=== PATIENT | male | born 1960 | race Caucasian/White ===

== ENCOUNTER 2016-05-21 17:55 | Inpatient (IN) ==
[2016-05-21] MEDS ORDERED: Ipratropium/Albuterol Neb 3 ML IH ONE ×2 (19:11→19:18)
[2016-05-21] MEDS ORDERED: 0.9 % Sodium Chloride 1,000 ML IVC ONE (19:17)
[2016-05-21] MEDS ORDERED: methylPREDNISolone 125 MG/2 ML VIAL IV ONE (19:18)
--- NOTE | 2016-05-21 19:24 | Emergency Department Note ---
Disposition Clinical Impression: Community acquired pneumonia, Sepsis Disposition: Admitted As Inpatient Condition: Fair General Adult HPI - General Chief complaint: ED Fever Stated complaint: "Feel like crap" Time Seen by Provider: 05/21/16 18:58 Source: patient, family Limitations: no limitations Nursing Notes Reviewed: Yes Vital Signs Reviewed: Yes - History of Present Illness Pain Scale: 8 - Related Data Home Medications Medication Instructions Recorded Confirmed Aspirin 325 mg PO QAM 01/02/15 05/21/16 Metoprolol [Lopressor] 50 mg PO BID 01/02/15 05/21/16 Multivitamin/Iron/Folic Acid 1 each PO QAM 01/02/15 05/21/16 [Centrum Complete Multivit Tab] NIFEdipine [Nifedipine ER] 30 mg PO QAM 01/02/15 05/21/16 Simvastatin [Zocor] 40 mg PO QPM 01/02/15 05/21/16 Previous Rx's Medication Instructions Recorded Budesonide/Formoterol 80/4.5 1 puff IH BIDR #1 hfa.aer.ad 01/09/15 [Symbicort] Allergies Allergy/AdvReac Type Severity Reaction Status Date / Time egg Allergy Anaphylaxis Verified 05/21/16 18:12 Sulfa (Sulfonamide Allergy Anaphylaxis Verified 05/21/16 18:12 Antibiotics) Past Medical History - Past Medical History Medical history: Reports: atrial fibrillation, COPD, coronary artery disease, hyperlipidemia, hypertension, myocardial infarction Surgical history: Reports: coronary bypass (CABG), other (AAA repair) Psychiatric history: Reports: no psych history - Social History Smoking Status: Current every day smoker Smokeless Tobacco Status: No Alcohol use: Reports: none Drug use: Reports: none Physical Exam - General Limitations: no limitations General appearance: alert, in no apparent distress Course Vital Signs Temperature 99.3 F 05/21/16 18:08 Pulse Rate 98 05/21/16 18:08 Respiratory Rate 18 05/21/16 18:08 Blood Pressure 148/75 05/21/16 18:08 O2 Sat by Pulse Oximetry 93 L 05/21/16 18:08 Temperature 99.3 F 05/21/16 18:08 Pulse Rate 97 05/21/16 20:40 Respiratory Rate 18 05/21/16 20:40 Blood Pressure 120/60 05/21/16 20:40 O2 Sat by Pulse Oximetry 94 L 05/21/16 20:40 Oxygen Delivery Oxygen Delivery Room Air Medical Decision Making - MDM Narrative Medical decision making narrative: I examined this patient and my medical decision-making was reviewed with the BOAT AND PLANT UTILITY SUPERVISOR/PA/Advanced Practice Nurse/Resident Physician. I agree with the documented findings, disposition and treatment plan as described except to the extent set forth below. Patient presented today with cough fever and not feeling well. He said he aches all over. Had a history of pneumonia in the past. Getting a workup on him at this time. Chest x-ray suspicious for a pneumonia. 23,000 white count. Order cultures and antibiotics and he will need admission. He is getting a breathing treatment here. Then we will reassess. Chest X-Ray 05/21/16 19:11 IMPRESSION: Cardiomegaly with findings of mild congestive heart failure. Superimposed multifocal atypical infection is conceivable if the patient has fever or leukocytosis. D/ / Juan Francisco Beckham MD / Juan Francisco Beckham MD Interpreting Provider: Juan Francisco Beckham MD 2006 hrs.: Patient has pneumonia with leukocytosis and COPD and accompaniment of hospitals, blood cultures start him on IV antibiotics. He is in agreement to this plan. - Lab Data Result diagrams: 05/21/16 19:41 05/21/16 19:41 Lab Results 05/21/16 05/21/16 05/21/16 Range/Units 19:41 19:41 19:41 WBC 23.6 H (4.3-11.1) K/mcL RBC 4.59 (4.19-5.50) M/mcL Hgb 15.9 (12.9-16.9) g/dL Hct 45.7 (37.5-50.1) % MCV 99.6 (83.0-100.0) fL MCH 34.6 H (28.0-33.3) pg MCHC 34.8 (31.6-35.5) g/dL RDW 14.7 H (11.5-14.5) % Plt Count 201 (140-400) K/mcL MPV 10.7 (9.4-12.4) fL Immature Gran % 0.5 (0-4) % Seg Neutrophils % 75.8 % Lymphocytes % 14.9 % Monocytes % 7.6 % Eosinophils % 0.9 % Basophils % 0.3 % Neutrophils # 17.9 H (1.6-8.9) K/mcL Lymphocytes # 3.5 (0.6-4.6) K/mcL Monocytes # 1.8 H (0.0-1.3) K/mcL Eosinophils # 0.2 (0.0-0.6) K/mcL Basophils # 0.1 (0.0-0.2) K/mcL Immature Plt Fraction 8.3 H (1.1-6.1) % Sodium 137 (136-145) mEq/L Potassium 3.5 (3.5-4.5) mEq/L Chloride 104 (98-109) mEq/L Carbon Dioxide 22 (19-29) mEq/L BUN 12 (8-26) mg/dL Creatinine 0.90 (0.72-1.25) mg/dL Est GFR ( Amer) > 60 (> 60) Est GFR (Non-Af Amer) > 60 (> 60) BUN/Creatinine Ratio 13 (6-26) Glucose 110 H (70-99) mg/dL POC Glucose (58-89) Calculated Osmolality 284 (280-300) Lactic Acid 0.8 (0.5-2.2) mmol/L Calcium 9.6 (8.6-10.8) mg/dL 05/21/16 Range/Units 19:46 WBC (4.3-11.1) K/mcL RBC (4.19-5.50) M/mcL Hgb (12.9-16.9) g/dL Hct (37.5-50.1) % MCV (83.0-100.0) fL MCH (28.0-33.3) pg MCHC (31.6-35.5) g/dL RDW (11.5-14.5) % Plt Count (140-400) K/mcL MPV (9.4-12.4) fL Immature Gran % (0-4) % Seg Neutrophils % % Lymphocytes % % Monocytes % % Eosinophils % % Basophils % % Neutrophils # (1.6-8.9) K/mcL Lymphocytes # (0.6-4.6) K/mcL Monocytes # (0.0-1.3) K/mcL Eosinophils # (0.0-0.6) K/mcL Basophils # (0.0-0.2) K/mcL Immature Plt Fraction (1.1-6.1) % Sodium (136-145) mEq/L Potassium (3.5-4.5) mEq/L Chloride (98-109) mEq/L Carbon Dioxide (19-29) mEq/L BUN (8-26) mg/dL Creatinine (0.72-1.25) mg/dL Est GFR ( Amer) (> 60) Est GFR (Non-Af Amer) (> 60) BUN/Creatinine Ratio (6-26) Glucose (70-99) mg/dL POC Glucose 105 H (58-89) Calculated Osmolality (280-300) Lactic Acid (0.5-2.2) mmol/L Calcium (8.6-10.8) mg/dL
--- NOTE | 2016-05-21 19:30 | Emergency Department Note ---
Disposition Clinical Impression: Community acquired pneumonia Sepsis Qualifiers: Sepsis type: sepsis due to unspecified organism Qualified Code(s): A41.9 - Sepsis, unspecified organism Disposition: Admitted As Inpatient Condition: Fair Referrals: NO,PCP [Primary Care Provider] - Forms: ED Satisfaction Letter Time of Disposition: 20:28 General Adult HPI - General Chief complaint: ED Fever Stated complaint: "Feel like crap" Time Seen by Provider: 05/21/16 18:58 Source: patient, family Limitations: no limitations Nursing Notes Reviewed: Yes Vital Signs Reviewed: Yes - History of Present Illness HPI Narrative: 56-year-old male presents to the emergency department for evaluation of cough, congestion, myalgias, fever and chills. Patient reports history of COPD, tobacco abuse, coronary artery disease, hypertension and hyperlipidemia. Patient states he had a recent bout of pneumonia a few years ago which he had to be hospitalized. Patient states that he was admitted to the ICU for 4 days and they did a bronchoscopy and washout. Patient has continued to smoke since his hospitalization. Patient states he spent the night in his laundry room floor because he was having rigors so badly. Patient states that he was coughing up until he got sick yesterday and now he's stopped coughing. Patient denies any nausea or vomiting. He denies any abdominal pain. Exam is remarkable for a middle-aged male resting in bed in no acute distress. He is awake, alert and oriented. Heart regular rate and rhythm. His lungs are diminished bilaterally with wheezing and rhonchi noted throughout. His abdomen is soft and nontender. Labs, x-ray and medications ordered. Pt Subjective Complaint: Cough, congestion, fever and chills Onset (ago): day(s) (2) Location: chest Radiation: non-radiation Pain Severity: moderate Pain Scale: 8 Quality: aching Consistency: intermittent Improves with: nothing Worsens with: nothing Associated symptoms: Reports: cough, fever/chills, malaise, shortness of breath - Related Data Home Medications Medication Instructions Recorded Confirmed Aspirin 325 mg PO QAM 01/02/15 05/21/16 Metoprolol [Lopressor] 50 mg PO BID 01/02/15 05/21/16 Multivitamin/Iron/Folic Acid 1 each PO QAM 01/02/15 05/21/16 [Centrum Complete Multivit Tab] NIFEdipine [Nifedipine ER] 30 mg PO QAM 01/02/15 05/21/16 Simvastatin [Zocor] 40 mg PO QPM 01/02/15 05/21/16 Previous Rx's Medication Instructions Recorded Budesonide/Formoterol 80/4.5 1 puff IH BIDR #1 hfa.aer.ad 01/09/15 [Symbicort] Allergies Allergy/AdvReac Type Severity Reaction Status Date / Time egg Allergy Anaphylaxis Verified 05/21/16 18:12 Sulfa (Sulfonamide Allergy Anaphylaxis Verified 05/21/16 18:12 Antibiotics) All systems ED: reviewed and negative except as stated. Constitutional: Reports: fever, chills Cardiovascular: Denies: chest pain Respiratory: Reports: cough, dyspnea, wheezes Gastrointestinal: Denies: abdominal pain, nausea, vomiting, diarrhea Genitourinary: Denies: dysuria Musculoskeletal: Reports: neck pain, myalgia Integumentary: Denies: rash Neurological: Reports: headache Past Medical History - Past Medical History Medical history: Reports: atrial fibrillation, COPD, coronary artery disease, hyperlipidemia, hypertension, myocardial infarction Surgical history: Reports: coronary bypass (CABG), other (AAA repair) Psychiatric history: Reports: no psych history - Social History Smoking Status: Current every day smoker Smokeless Tobacco Status: No Alcohol use: Reports: none Drug use: Reports: none Physical Exam - General Limitations: no limitations General appearance: alert, in no apparent distress - Head Head exam: atraumatic, normocephalic, normal inspection - ENT ENT exam: normal oropharynx, mucous membranes moist - Chest Chest inspection: Present: normal inspection, symmetric chest wall rise - Respiratory Respiratory exam: Present: wheezes, other (Bilateral expiratory wheezing and rhonchi noted throughout lung tristan) - Cardiovascular Cardiovascular exam: Present: regular rate, normal rhythm, normal heart sounds - Abdominal Exam Abdominal exam: Present: soft, Non-Tender. Absent: tenderness, distention, guarding, rebound, rigidity - Neurological Exam Neurological exam: Present: alert, CN II-XII intact - Skin Skin exam: Present: warm, dry, intact, normal color Course - Reevaluation(s) Reevaluation #1: Chest x-ray shows signs of multifocal pneumonia. White blood cell count 23,000. Heart rate elevated at 102 bpm. Patient meets sepsis criteria. IV fluids, antibiotics given. Discussed case with hospitalist service. Will admit for further evaluation and treatment. Time: 20:28 Vital Signs Temperature 99.3 F 05/21/16 18:08 Pulse Rate 98 05/21/16 18:08 Respiratory Rate 18 05/21/16 18:08 Blood Pressure 148/75 05/21/16 18:08 O2 Sat by Pulse Oximetry 93 L 05/21/16 18:08 Temperature 99.3 F 05/21/16 18:08 Pulse Rate 98 05/21/16 20:02 Respiratory Rate 18 05/21/16 20:02 Blood Pressure 120/60 05/21/16 20:02 O2 Sat by Pulse Oximetry 94 L 05/21/16 20:02 Oxygen Delivery Oxygen Delivery Room Air Medical Decision Making - Medical Records Medical records reviewed: Yes I reviewed the patient's medical records. - Lab Data Lab results reviewed: Yes I reviewed the patient's lab results. Result diagrams: 05/21/16 19:41 05/21/16 19:41 Lab Results 05/21/16 05/21/16 05/21/16 Range/Units 19:41 19:41 19:41 WBC 23.6 H (4.3-11.1) K/mcL RBC 4.59 (4.19-5.50) M/mcL Hgb 15.9 (12.9-16.9) g/dL Hct 45.7 (37.5-50.1) % MCV 99.6 (83.0-100.0) fL MCH 34.6 H (28.0-33.3) pg MCHC 34.8 (31.6-35.5) g/dL RDW 14.7 H (11.5-14.5) % Plt Count 201 (140-400) K/mcL MPV 10.7 (9.4-12.4) fL Immature Gran % 0.5 (0-4) % Seg Neutrophils % 75.8 % Lymphocytes % 14.9 % Monocytes % 7.6 % Eosinophils % 0.9 % Basophils % 0.3 % Neutrophils # 17.9 H (1.6-8.9) K/mcL Lymphocytes # 3.5 (0.6-4.6) K/mcL Monocytes # 1.8 H (0.0-1.3) K/mcL Eosinophils # 0.2 (0.0-0.6) K/mcL Basophils # 0.1 (0.0-0.2) K/mcL Immature Plt Fraction 8.3 H (1.1-6.1) % Sodium 137 (136-145) mEq/L Potassium 3.5 (3.5-4.5) mEq/L Chloride 104 (98-109) mEq/L Carbon Dioxide 22 (19-29) mEq/L BUN 12 (8-26) mg/dL Creatinine 0.90 (0.72-1.25) mg/dL Est GFR ( Amer) > 60 (> 60) Est GFR (Non-Af Amer) > 60 (> 60) BUN/Creatinine Ratio 13 (6-26) Glucose 110 H (70-99) mg/dL POC Glucose (58-89) Calculated Osmolality 284 (280-300) Lactic Acid 0.8 (0.5-2.2) mmol/L Calcium 9.6 (8.6-10.8) mg/dL 05/21/16 Range/Units 19:46 WBC (4.3-11.1) K/mcL RBC (4.19-5.50) M/mcL Hgb (12.9-16.9) g/dL Hct (37.5-50.1) % MCV (83.0-100.0) fL MCH (28.0-33.3) pg MCHC (31.6-35.5) g/dL RDW (11.5-14.5) % Plt Count (140-400) K/mcL MPV (9.4-12.4) fL Immature Gran % (0-4) % Seg Neutrophils % % Lymphocytes % % Monocytes % % Eosinophils % % Basophils % % Neutrophils # (1.6-8.9) K/mcL Lymphocytes # (0.6-4.6) K/mcL Monocytes # (0.0-1.3) K/mcL Eosinophils # (0.0-0.6) K/mcL Basophils # (0.0-0.2) K/mcL Immature Plt Fraction (1.1-6.1) % Sodium (136-145) mEq/L Potassium (3.5-4.5) mEq/L Chloride (98-109) mEq/L Carbon Dioxide (19-29) mEq/L BUN (8-26) mg/dL Creatinine (0.72-1.25) mg/dL Est GFR ( Amer) (> 60) Est GFR (Non-Af Amer) (> 60) BUN/Creatinine Ratio (6-26) Glucose (70-99) mg/dL POC Glucose 105 H (58-89) Calculated Osmolality (280-300) Lactic Acid (0.5-2.2) mmol/L Calcium (8.6-10.8) mg/dL - Radiology Data Radiology results reviewed: Yes I reviewed the patient's radiology results. - EKG Data EKG #1 EKG attestation: Yes I reviewed and interpreted this EKG. EKG shows normal: sinus rhythm Rate: normal Rhythm: NSR [place]/QRS: normal Interpretation: no acute changes
[2016-05-21 19:50] LABS: Basophils # 0.1 K/mcL (0.0-0.2); Basophils % 0.3 %; Eosinophils # 0.2 K/mcL (0.0-0.6); Eosinophils % 0.9 %; Hematocrit 45.7 % (37.5-50.1); Hemoglobin 15.9 g/dL (12.9-16.9); Immature Granulocytes % 0.5 % (0-4); Immature Platelets 8.3 % (1.1-6.1); Lymphocytes # 3.5 K/mcL (0.6-4.6); Lymphocytes % 14.9 %; Mean Corpuscular HGB Conc 34.8 g/dL (31.6-35.5); Mean Corpuscular Hemoglobin 34.6 pg (28.0-33.3); Mean Corpuscular Volume 99.6 fL (83.0-100.0); Mean Platelet Volume 10.7 fL (9.4-12.4); Monocytes # 1.8 K/mcL (0.0-1.3); Monocytes % 7.6 %; Neutrophils # 17.9 K/mcL (1.6-8.9); Platelet Count 201 K/mcL (140-400); Red Blood Count 4.59 M/mcL (4.19-5.50); Red Cell Distribution Width 14.7 % (11.5-14.5); Segmented Neutrophils % 75.8 %
[2016-05-21] MEDS ORDERED: Levofloxacin 750 MG/150 ML 750 MG/150 ML BAG IVPB ONE (19:53)
[2016-05-21 20:01] LABS: BUN/Creatinine Ratio 13 (6-26); Blood Urea Nitrogen 12 mg/dL (8-26); Calcium 9.6 mg/dL (8.6-10.8); Carbon Dioxide 22 mEq/L (19-29); Chloride 104 mEq/L (98-109); Glucose 110 mg/dL (70-99); Osmolality,Calculated 284 (280-300); Potassium 3.5 mEq/L (3.5-4.5); Sodium 137 mEq/L (136-145); eGFR For African Americans > 60 (> 60); eGFR For Non-African Americans > 60 (> 60)
[2016-05-21] MEDS ORDERED: Acetaminophen 325 MG TABLET PO PRN (23:09)
[2016-05-21] MEDS ORDERED: Naloxone 0.4 MG/ML INJ IVP PRN (23:09)
[2016-05-21] MEDS ORDERED: *HR* Morphine 2 MG/ML SYRINGE IVP PRN (23:09)
--- NOTE | 2016-05-21 23:19 | Internal Med History&Physical ---
Date of Encounter: 05/21/16 Time of Encounter: 22:40 Internal Medicine - H&P: HPI Chief complaint: Weakness, malaise, cough, 2-3 days. Admitted From: Emergency Dept Plans for Post Hospital Care: Home History of present illness: Mr. Waldrop is a 56 year old male with medical history significant for COPD (with continuing tobacco abuse), CAD, PVD presents to the ED WITH 56-year-old male presents to the emergency department cough, congestion, myalgias, fever and chills OF 2-3 DAYS DURATION. .He feels he has a pneumonia. His cough was initially productive, but it appears to be drying. He lives alone at home, hos sons provide support, He is not up-to-date with influenza and pneumococcal vaccination. no sick contacts, no recent travel. He was treated for fungal pneumonia about 1 year ago. At that time he had bronchosopy with ilea lavage. He continues to cough, but now infrequent and less proceed. He is FULL CODE as per discussion. hE NOMINATES HIS DAUGHTER HIS nok/poa. Medical history: Reports: atrial fibrillation, COPD, coronary artery disease, hyperlipidemia, hypertension, myocardial infarction Surgical history: Reports: coronary bypass (CABG), other (AAA repair) Psychiatric history: Reports: no psych history Smoking Status: Current every day smoker Smokeless Tobacco Status: No Alcohol use: Reports: none Drug use: Reports: none Family history: HTN, CAD, CVA, mother: dm2, cva, SISTERS/BROTHER: DM2 ROS: Please see HPI, postives and relevant negatives are detailed, system- symptom not mentioned is assumed negative unless otherwise stated. Vital Signs Temperature 99.3 F 05/21/16 18:08 Pulse Rate 98 05/21/16 18:08 Respiratory Rate 18 05/21/16 18:08 Blood Pressure 148/75 05/21/16 18:08 O2 Sat by Pulse Oximetry 93 L 05/21/16 18:08 Temperature 99.3 F 05/21/16 18:08 Pulse Rate 97 05/21/16 20:40 Respiratory Rate 18 05/21/16 20:40 Blood Pressure 120/60 05/21/16 20:40 O2 Sat by Pulse Oximetry 94 L 05/21/16 20:40 O/E: not in distress, ill loking HEENT: not pale, anicteric, afebrile, acyanotic, no JVD Chest: Babasilar crackles, scattered wheezing Heart/CVS: RRR, HS1/2, no murmur Abdomen: soft, non-tender, no masses. 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 Extremities: no normal pedal pulses, no calf tenderness. cxr: favors multifocal pneumonia on probable subtle baseline heart failure IMP Mutifocal pneumonia vs atypical pneumonia Continuing tobacco abuse Chronic morbidities HTN CAD HLD Hx of fungal pneumonia PLAN Admit Levaquin IV 750 MH qd Bronchodilators Oxygen supplemetation Continue other medications of chronic morbidities Heparin for DVT prophyaxis I discussed my findings and assessment with the patient, he verbalized understanding, he is agreeable to admisison. He is admitted for evaluation and treatment of multifocal pneumonia. Past Med Surg Social Fam HX - Past Medical History Medical history: atrial fibrillation, COPD, coronary artery disease, hyperlipidemia, hypertension, myocardial infarction Psychiatric history: no psych history - Past Surgical History Surgical History: coronary bypass (CABG), other - Social History Smoking Status: Current every day smoker Packs per day: 0.75 Smokeless Tobacco Status: No Alcohol use: none Drug use: none - Family History Father Adopted: [place]: [place] Family Member Ethnicity: Non- Living Status: Age at : 81 Cause of : KIDNEY FAILURE Hx Family Cardiac Disorders: Yes (NH) Hx Family Respiratory Disorders: No Hx Family Cancer: Yes (Skin CA) Hx Family GI Disorders: No Hx Family Endocrine Disorder: No Hx Family Neuromuscular Disorders: No Hx Family Neurologic Disorders: No Hx Family HEENT Disorders: No Hx Family Autoimmune Disorders: No Mother Hx Family Endocrine Disorder: Yes (DM) Brother Hx Family Endocrine Disorder: Yes (DM) Sister Hx Family Endocrine Disorder: Yes (DM) Internal Medicine - H&P: Meds Aspirin 325 mg PO QAM 01/02/15 [History] Metoprolol [Lopressor] 50 mg PO BID 01/02/15 [History] Multivitamin/Iron/Folic Acid [Centrum Complete Multivit Tab] 1 each PO QAM 01/02 [History] NIFEdipine [Nifedipine ER] 30 mg PO QAM 01/02/15 [History] Simvastatin [Zocor] 40 mg PO QPM 01/02/15 [History] Budesonide/Formoterol 80/4.5 [Symbicort] 1 puff IH BIDR #1 hfa.aer.ad 01/09/15 [Rx] Allergies egg Allergy (Verified 05/21/16 18:12) Anaphylaxis Sulfa (Sulfonamide Antibiotics) Allergy (Verified 05/21/16 18:12) Anaphylaxis All Systems PM: A 10-system review of systems was performed and is negative for pertinent findings except as documented above in the HPI. - Constitutional Vitals: Temp Pulse Resp BP Pulse Ox 98.1 F 88 18 118/70 93 L 05/21/16 21:58 05/21/16 21:58 05/21/16 21:58 05/21/16 21:58 05/21/16 21:58 Internal Med - H&P Results - Labs CBC & Chem 7: 05/21/16 19:41 05/21/16 19:41
[2016-05-21] MEDS: Ipratropium/Albuterol Neb 3 ML IH SCH (23:33)
[2016-05-22 01:16] LABS: Bilirubin,Urine Negative (Negative); Blood,Urine Small (Negative); Clarity,Urine Clear (Clear); Color,Urine Yellow (Yellow); Glucose,Urine (UA) Normal (Normal); Ketones,Urine 40 mg/dL (Negative); Leukocyte Esterase,Urine Negative (Negative); Nitrite,Urine Negative (Negative); Protein,Urine 30 mg/dL (Neg-Trace); Specific Gravity,Urine 1.025 (1.010-1.025); Urobilinogen,Urine Normal (Normal)
[2016-05-22 01:25] LABS: Mucus,Urine Few (Few); Squamous Epithelial Cell,Urine None Seen per lpf (None-Few); WBC,Urine 0-3 per hpf (0-3)
[2016-05-22 01:26] LABS: Bacteria,Urine None Seen per hpf (None-Few); Hyaline Casts,Urine None Seen per lpf (None-Few)
[2016-05-22] MEDS: Ipratropium/Albuterol Neb 3 ML IH SCH ×4 (04:11→23:40)
[2016-05-22] MEDS: Levofloxacin 750 MG/150 ML 750 MG/150 ML BAG IVPB SCH (09:45)
[2016-05-22] MEDS: Multivit/Ca/Min/Fe/FA 1 TAB TABLET PO SCH (09:46)
[2016-05-22] MEDS: NIFEdipine XL (24 HR) 30 MG TAB.ER.24 PO SCH (09:46)
[2016-05-22] MEDS: Aspirin 325 MG TABLET PO SCH (09:46)
[2016-05-22] MEDS: Nicotine 21 MG PATCH.TD24 TD SCH (09:47)
[2016-05-22] MEDS: Budesonide/Formoterol 80/4.5 MDI IH SCH ×2 (10:35→23:40)
--- NOTE | 2016-05-22 15:19 | Internal Med Progress Note ---
Date of Encounter: 05/22/16 Time of Encounter: 07:45 - Assessment and plan (1) Pneumonia due to aerobic bacteria Current Visit: Yes Status: Acute Assessment and plan: Pt with hx of fungal pneumonia last year. He is currently on IV abx. Strep, Legionella and influenza are all negative. Will get 2 view CXR to evaluate progression/resolution of infiltrates. (2) Acute respiratory failure with hypoxia Current Visit: Yes Status: Acute Assessment and plan: Pt is requiring oxygen supplementation at this time. Will wean as tolerated. (3) Coronary artery disease Current Visit: No Status: Chronic Assessment and plan: Chronic issue Qualifiers: Coronary Disease-Associated Artery/Lesion type: [place] artery [place] vs. transplanted heart: [place] heart Associated angina: without angina Qualified Code(s): I25.10 - Atherosclerotic heart disease of [place] coronary artery without angina pectoris (4) Hypertension Current Visit: Yes Status: Chronic Assessment and plan: Continue home metoprolol Qualifiers: Hypertension type: essential hypertension Qualified Code(s): I10 - Essential (primary) hypertension (5) Tobacco abuse Current Visit: Yes Status: Chronic Assessment and plan: Counselling on cessation. (6) Leukocytosis Current Visit: Yes Status: Acute Qualifiers: Leukocytosis type: other Qualified Code(s): D72.828 - Other elevated white blood cell count - Subjective Interval history: Mr. Waldrop is currently admitted for acute community acquired pneumonia - multifocal in nature. He also is hypoxic at this time. He is high risk due to the potential for worsening respiratory status and hx of complicated pneumonia - fungal. Mr. Waldrop feels a little better than last evening. He is tolerating IV abx. He has less cough. No fever. No CP. No GI symptoms. Appetite is good this AM. He has not gotten up today. - Constitutional Vitals: Temp Pulse Resp BP Pulse Ox 97.5 F L 95 15 152/82 92 L 05/22/16 11:10 05/22/16 11:10 05/22/16 11:10 05/22/16 11:10 05/22/16 11:10 General appearance: Present: A&O X 3, pleasant, answers questions appropriately - Head Head exam: Present: normocephalic - Eye Eye exam: Present: conjuntiva pink - ENT ENT exam: Present: mucous membranes moist - Respiratory Respiratory exam: Present: decreased breath sounds, rales Additional comments: Scattered rales bilaterally. - Cardiovascular Cardiovascular exam: Present: RRR. Absent: +S4, tachycardia - GI/Abdominal GI/Abdominal exam: Present: soft. Absent: tenderness - Extremities Exam Extremities exam: Present: warm. Absent: pedal edema, tenderness - Neurological Exam Neurological exam: Present: alert, oriented X3, no focal deficits - Psychiatric Psychiatric exam: Present: normal affect, normal mood - Skin Skin exam: Present: dry, normal color, warm. Absent: rash Internal Medicine: Result - Labs CBC & Chem 7: 05/21/16 19:41 05/21/16 19:41 Labs: Urine 05/22/16 Range/Units 00:48 Urine Color Yellow (Yellow) Urine Clarity Clear (Clear) Urine pH 7.0 (5.0-8.0) pH Units Ur Specific [place] 1.025 (1.010-1.025) Urine Protein 30 H (Neg-Trace) mg/dL Urine Glucose (UA) Normal (Normal) mg/dL Consult Discharge Plan - Plan Referrals: Jalen Fletcher DO [Primary Care Provider] -
[2016-05-23 04:38] LABS: Basophils % 0.2 %; Eosinophils % 0.2 %; Hematocrit 45.1 % (37.5-50.1); Hemoglobin 15.6 g/dL (12.9-16.9); Immature Granulocytes % 0.8 % (0-4); Lymphocytes # 3.1 K/mcL (0.6-4.6); Mean Corpuscular HGB Conc 34.6 g/dL (31.6-35.5); Mean Corpuscular Volume 101.1 fL (83.0-100.0); Mean Platelet Volume 11.2 fL (9.4-12.4); Monocytes # 1.6 K/mcL (0.0-1.3); Neutrophils # 15.5 K/mcL (1.6-8.9); Platelet Count 186 K/mcL (140-400); Red Blood Count 4.46 M/mcL (4.19-5.50); Red Cell Distribution Width 14.7 % (11.5-14.5); Segmented Neutrophils % 75.8 %
[2016-05-23] MEDS: Ipratropium/Albuterol Neb 3 ML IH SCH ×4 (04:45→22:54)
[2016-05-23] MEDS: Levofloxacin 750 MG/150 ML 750 MG/150 ML BAG IVPB SCH (08:33)
[2016-05-23] MEDS: Nicotine 21 MG PATCH.TD24 TD SCH (08:33)
[2016-05-23] MEDS: Multivit/Ca/Min/Fe/FA 1 TAB TABLET PO SCH (08:34)
[2016-05-23] MEDS: NIFEdipine XL (24 HR) 30 MG TAB.ER.24 PO SCH (08:34)
[2016-05-23] MEDS: Aspirin 325 MG TABLET PO SCH (08:34)
[2016-05-23] MEDS: Budesonide/Formoterol 80/4.5 MDI IH SCH ×2 (10:47→22:54)
--- NOTE | 2016-05-23 18:42 | Internal Med Progress Note ---
Date of Encounter: 05/23/16 Time of Encounter: 15:00 - Assessment and plan (1) Acute respiratory failure with hypoxia Current Visit: Yes Status: Acute Assessment and plan: Improving. Will wean oxygen as able. If not, will do oxygen qualification tomorrow. (2) Pneumonia due to aerobic bacteria Current Visit: Yes Status: Acute Assessment and plan: Repeat CXR today shows improvement of infiltrates. WBC remains quite elevated. Will continue abx today and recheck labs in AM. Hopefully will be improved and able for discharge tomorrow. (3) Leukocytosis Current Visit: Yes Status: Acute Assessment and plan: Remains quite elevated. No bands noted. Will recheck in AM. Qualifiers: Leukocytosis type: other Qualified Code(s): D72.828 - Other elevated white blood cell count (4) Coronary artery disease Current Visit: No Status: Chronic Assessment and plan: Chronic issue Qualifiers: Coronary Disease-Associated Artery/Lesion type: [place] artery [place] vs. transplanted heart: [place] heart Associated angina: without angina Qualified Code(s): I25.10 - Atherosclerotic heart disease of [place] coronary artery without angina pectoris (5) Hypertension Current Visit: Yes Status: Chronic Assessment and plan: Continue home metoprolol Qualifiers: Hypertension type: essential hypertension Qualified Code(s): I10 - Essential (primary) hypertension (6) Tobacco abuse Current Visit: Yes Status: Chronic Assessment and plan: Counselling on cessation. - Subjective Interval history: Mr. Waldrop is currently admitted for acute community acquired pneumonia - multifocal in nature. He remains moderate to high risk due to the potential for worsening respiratory status and hx of complicated pneumonia - fungal. He also has persistent leukocytosis. Mr. Waldrop feels well at this time. He has less cough. No fever. Less sputum. Breathing treatments and abx seem to be helping. WBC remains elevated. No diarrhea or new symptoms noted. - Constitutional Vitals: Temp Pulse Resp BP Pulse Ox 97.7 F 73 18 123/78 91 L 05/23/16 16:00 05/23/16 16:00 05/23/16 16:29 05/23/16 16:00 05/23/16 16:29 General appearance: Present: A&O X 3, pleasant, answers questions appropriately - Head Head exam: Present: normocephalic - Eye Eye exam: Present: conjuntiva pink - ENT ENT exam: Present: mucous membranes moist - Respiratory Respiratory exam: Present: decreased breath sounds, CTAB - Cardiovascular Cardiovascular exam: Present: RRR. Absent: systolic murmur, tachycardia - GI/Abdominal GI/Abdominal exam: Present: soft. Absent: tenderness - Extremities Exam Extremities exam: Present: warm. Absent: pedal edema - Neurological Exam Neurological exam: Present: alert, oriented X3, no focal deficits - Psychiatric Psychiatric exam: Present: normal affect, normal mood - Skin Skin exam: Present: dry, warm. Absent: rash Internal Medicine: Result - Labs CBC & Chem 7: 05/23/16 03:37 05/21/16 19:41 Labs: Short CBC 05/23/16 Range/Units 03:37 WBC 20.5 H (4.3-11.1) K/mcL Hgb 15.6 (12.9-16.9) g/dL Hct 45.1 (37.5-50.1) % Plt Count 186 (140-400) K/mcL Neutrophils # 15.5 H (1.6-8.9) K/mcL - Impressions Impressions Chest X-Ray 05/23/16 07:00 IMPRESSION: near complete resolution of lung infiltrates since 01/02/2015. There is residual infiltrate in the medial left lung base, linear, possibly representing atelectasis/scarring given the timeframe. D/ / 05/23/2016 10:05:42 Pema Mast MD / aram Interpreting Provider: Pema Mast MD Consult Discharge Plan - Plan Referrals: Jalen Fletcher DO [Primary Care Provider] -
--- NOTE | 2016-05-23 22:45 | Electrocardiograph Report ---
[facility] Test Date: 2016-05-21 Pat Name: Harsh Waldrop Department: 104 Room: 3B39 Gender: M Careers Adviser: LEXUS : 1960 Requested By: Too Alanis Order Number: [id number] Reading MD: Jamaal Olivares MD Measurements Intervals [place] Rate: 81 P: 91 [place]: 169 QRS: 74 QRSD: 120 T: 27 QT: 366 QTc: 404 Interpretive Statements SINUS RHYTHM LEFT ATRIAL ENLARGEMENT MODERATE INTRAVENTRICULAR CONDUCTION DELAY Electronically Signed On 05-23-16 22:44:03 EST by Jamaal Olivares MD
[2016-05-24 04:40] LABS: Basophils # 0.1 K/mcL (0.0-0.2); Basophils % 0.5 %; Eosinophils # 0.3 K/mcL (0.0-0.6); Eosinophils % 2.8 %; Hematocrit 46.6 % (37.5-50.1); Immature Granulocytes % 0.4 % (0-4); Lymphocytes # 4.1 K/mcL (0.6-4.6); Lymphocytes % 35.1 %; Mean Corpuscular HGB Conc 34.3 g/dL (31.6-35.5); Mean Corpuscular Hemoglobin 34.8 pg (28.0-33.3); Mean Corpuscular Volume 101.3 fL (83.0-100.0); Mean Platelet Volume 10.9 fL (9.4-12.4); Monocytes # 0.9 K/mcL (0.0-1.3); Monocytes % 7.9 %; Neutrophils # 6.3 K/mcL (1.6-8.9); Platelet Count 203 K/mcL (140-400); Red Cell Distribution Width 14.8 % (11.5-14.5); Segmented Neutrophils % 53.3 %
[2016-05-24 04:55] LABS: Alanine Aminotransferase 73 Units/L (0-55); Albumin 3.1 g/dL (3.5-5.0); Albumin/Globulin Ratio 0.7 (1.1-2.2); Alkaline Phosphatase 76 Units/L (38-126); Aspartate Amino Transferase 54 Units/L (5-34); BUN/Creatinine Ratio 21 (6-26); Bilirubin,Total 0.5 mg/dL (0.2-1.2); Blood Urea Nitrogen 19 mg/dL (8-26); Calcium 9.6 mg/dL (8.6-10.8); Carbon Dioxide 26 mEq/L (19-29); Chloride 103 mEq/L (98-109); Globulin 4.2 g/dL (2.4-3.5); Glucose 108 mg/dL (70-99); Osmolality,Calculated 295 (280-300); Potassium 4.2 mEq/L (3.5-4.5); Sodium 141 mEq/L (136-145); Total Protein 7.3 g/dL (6.0-8.3); eGFR For African Americans > 60 (> 60); eGFR For Non-African Americans > 60 (> 60)
[2016-05-24] MEDS: Ipratropium/Albuterol Neb 3 ML IH SCH (05:19)
[2016-05-24 06:46] VITALS: BP 126/81
[2016-05-24] MEDS: NIFEdipine XL (24 HR) 30 MG TAB.ER.24 PO SCH (08:48)
[2016-05-24] MEDS: Aspirin 325 MG TABLET PO SCH (08:48)
[2016-05-24] MEDS: Nicotine 21 MG PATCH.TD24 TD SCH (08:49)
[2016-05-24] MEDS: Multivit/Ca/Min/Fe/FA 1 TAB TABLET PO SCH (08:49)
[2016-05-24] MEDS ORDERED: levoFLOXacin 500 MG TABLET PO SCH (09:00)
--- NOTE | 2016-05-24 09:06 | Discharge Summary ---
Date of Encounter: 05/24/16 Time of Encounter: 07:40 - Discharge Diagnosis (1) Acute respiratory failure with hypoxia Priority: Primary Status: Acute (2) Pneumonia due to aerobic bacteria Priority: Primary Status: Acute (3) Leukocytosis Priority: Secondary Status: Resolved Qualifiers: Leukocytosis type: other Qualified Code(s): D72.828 - Other elevated white blood cell count (4) Coronary artery disease Priority: Secondary Status: Chronic Qualifiers: Coronary Disease-Associated Artery/Lesion type: [place] artery [place] vs. transplanted heart: [place] heart Associated angina: without angina Qualified Code(s): I25.10 - Atherosclerotic heart disease of [place] coronary artery without angina pectoris (5) Hypertension Priority: Secondary Status: Chronic Qualifiers: Hypertension type: essential hypertension Qualified Code(s): I10 - Essential (primary) hypertension (6) Tobacco abuse Priority: Secondary Status: Chronic - Discharge Medications Prescriptions: Levofloxacin [Levaquin] 750 mg PO DAILY #4 tablet Home Medications: Aspirin 325 mg PO QAM 01/02/15 [History] Metoprolol [Lopressor] 50 mg PO BID 01/02/15 [History] Multivitamin/Iron/Folic Acid [Centrum Complete Multivit Tab] 1 each PO QAM 01/02 [History] NIFEdipine [Nifedipine ER] 30 mg PO QAM 01/02/15 [History] Simvastatin [Zocor] 40 mg PO QPM 01/02/15 [History] Budesonide/Formoterol 80/4.5 [Symbicort] 1 puff IH BIDR #1 hfa.aer.ad 01/09/15 [Rx] Levofloxacin [Levaquin] 750 mg PO DAILY #4 tablet 05/24/16 [Rx] Allergies/Adverse Reactions: Allergies egg Allergy (Verified 05/21/16 18:12) Anaphylaxis Sulfa (Sulfonamide Antibiotics) Allergy (Verified 05/21/16 18:12) Anaphylaxis Date of admission: 05/21/16 23:09 Primary care physician: Jalen Fletcher Discharging clinician: César Blue Anticipated date of discharge: 05/24/16 - Patient Status Disposition: Home, Self-Care Condition: Good Functional capacity at discharge: independent ambulation Overall status at discharge: patient is progressing back to baseline - Discharge Instructions Follow Up With: Jalen Fletcher, [Primary Care Provider] - (The office has requested that you call to schedule an appointment when you get home. Please follow up within 5 -7 days from your discharge date. ) Additional Instructions: Follow with PCP in 1 week - Diet and Activity Activity: resume usual activities as tolerated Diet: advance to your usual diet Hospital course: Mr. Waldrop is a 56 year old male with hx of CAD and HTN presented to ED with cough and malaise. He has previous history of pneumonia about a year ago. He was found to have leukocytosis and abnl CXR and was admitted for further evaluation and treatment. Mr. Waldrop was admitted to [facility]. He was started on IV abx and kept on oxygen. He had some improvement by the next day but continued to have leukocytosis. He was kept inpatient and on oxygen and IV abx. He tolerated diet and had no new issues. On 05/24/16 he felt well. He was afebrile and improved WBC and good BP. At that time he was felt stable for discharge home. - Time Spent with Patient Total time spent providing and/or coordinating discharge services: 40min - Constitutional Vitals: Temp Pulse Resp BP Pulse Ox 97.6 F 74 18 126/81 96 05/24/16 06:45 05/24/16 06:45 05/24/16 06:45 05/24/16 06:45 05/24/16 06:45 General appearance: Present: A&O X 3, pleasant, answers questions appropriately - Head Head exam: Present: normocephalic - Eye Eye exam: Present: conjuntiva pink - ENT ENT exam: Present: mucous membranes moist - Respiratory Respiratory exam: Present: CTAB. Absent: rhonchi, wheezes - Cardiovascular Cardiovascular exam: Present: RRR. Absent: systolic murmur, tachycardia - GI/Abdominal GI/Abdominal exam: Present: rigid. Absent: tenderness - Extremities Exam Extremities exam: Present: warm. Absent: pedal edema - Neurological Exam Neurological exam: Present: alert, oriented X3, no focal deficits - Psychiatric Psychiatric exam: Present: normal affect, normal mood - Skin Skin exam: Present: dry, warm. Absent: rash
== END 2016-05-24 10:12 | disposition home or self-care (01) | DRG 871 ==
LOC: EMEROO 17:55 → 3BNU 17:55 → SUATTDRO 23:09
PROVIDERS: ADMIT Nurse Practitioner Acute Care; ATTEND Internal Medicine

== ENCOUNTER 2017-07-01 20:08 | Inpatient (IN) ==
[2017-07-01 21:20] LABS: Basophils % 0.4 %; Eosinophils % 0.3 %; Hematocrit 47.6 % (37.5-50.1); Hemoglobin 16.4 g/dL (12.9-16.9); Immature Granulocytes % 0.2 % (0-4); Lymphocytes % 11.3 %; Mean Corpuscular HGB Conc 34.5 g/dL (31.6-35.5); Mean Corpuscular Hemoglobin 34.5 pg (28.0-33.3); Mean Corpuscular Volume 100.2 fL (83.0-100.0); Mean Platelet Volume 11.3 fL (9.4-12.4); Monocytes # 1.1 K/mcL (0.0-1.3); Monocytes % 11.8 %; Neutrophils # 6.8 K/mcL (1.6-8.9); Platelet Count 158 K/mcL (140-400); Red Blood Count 4.75 M/mcL (4.19-5.50); Red Cell Distribution Width 14.6 % (11.5-14.5)
--- NOTE | 2017-07-01 21:25 | Emergency Department Note ---
Disposition Clinical Impression: Chest pain Qualifiers: Chest pain type: unspecified Qualified Code(s): R07.9 - Chest pain, unspecified Pneumonia Qualifiers: Pneumonia type: due to unspecified organism Laterality: unspecified laterality Lung location: unspecified part of lung Qualified Code(s): J18.9 - Pneumonia, unspecified organism Disposition: Admitted As Inpatient Condition: Good Time of Disposition: 22:36 General Adult HPI - General Chief complaint: ED Shortness of Breath/Dyspnea Stated complaint: froylan,congestion,fever, 20 teeth pulled today Time Seen by Provider: 07/01/17 20:15 Source: patient, family Limitations: no limitations Nursing Notes Reviewed: Yes Vital Signs Reviewed: Yes - History of Present Illness HPI Narrative: 57-year-old male with significant past medical history of COPD and multiple pneumonias including fungal types presenting to the emergency department with chief complaint of overall not feeling well, shortness of breath and chest pain. Patient states yesterday he was cutting wood in his yard and afterwards he felt slightly weak with arm pain radiating into his chest. He then spiked a fever. They are unsure TMAx because they do not have a thermometer. He just felt warm to touch. Patient does have significant cardiac history with a CABG but no follow-up after surgery. Patient states today he went to the oral surgeon and had multiple teeth removed. He was not placed on antibiotics. He then had a fever again this afternoon and his daughter and ex- convinced him to come to the emergency department. Patient does disclose dyspnea on exertion at this time and mouth pain but otherwise has no complaints at this time. Denies chest pain at this time. Pain Scale: 2 - Related Data Home Medications Medication Instructions Recorded Confirmed Aspirin 325 mg PO QAM 01/02/15 07/01/17 Metoprolol [Lopressor] 50 mg PO BID 01/02/15 07/01/17 Multivitamin/Iron/Folic Acid 1 each PO QAM 01/02/15 07/01/17 [Centrum Complete Multivit Tab] NIFEdipine [Nifedipine ER] 30 mg PO QAM 01/02/15 07/01/17 Simvastatin [Zocor] 40 mg PO QPM 01/02/15 07/01/17 Budesonide/Formoterol 80/4.5 1 puff IH BIDR PRN 07/01/17 07/01/17 [Symbicort] Ibuprofen [Motrin] 800 mg PO Q8HR PRN 07/01/17 07/01/17 Naproxen Sodium [Aleve] 220 - 440 mg PO Q12H PRN 07/01/17 07/01/17 Allergies Allergy/AdvReac Type Severity Reaction Status Date / Time egg Allergy Anaphylaxis Verified 12/22/16 14:04 Sulfa (Sulfonamide Allergy Anaphylaxis Verified 12/22/16 14:04 Antibiotics) All systems ED: reviewed and negative except as stated. Constitutional: Reports: fever ENT ED: Reports: dental pain Cardiovascular: Reports: chest pain, dyspnea on exertion Respiratory: Reports: dyspnea Past Medical History - Past Medical History Attestation: Yes The following information was validated with the patient. Medical history: Reports: atrial fibrillation, COPD, coronary artery disease, hyperlipidemia, hypertension, myocardial infarction Surgical history: Reports: coronary bypass (CABG), other Psychiatric history: Reports: no psych history - Social History Smoking Status: Current every day smoker Smokeless Tobacco Status: No Alcohol use: Reports: none Drug use: Reports: none Physical Exam - General Limitations: no limitations General appearance: alert, in no apparent distress - Head Head exam: atraumatic, normocephalic, normal inspection - Eye Eye exam: Present: normal appearance. Absent: scleral icterus, conjunctival injection - ENT ENT exam: other (Dried blood around and inside the mouth. No sign of obvious abscess or active bleeding) - Neck Neck exam: Present: normal inspection, full ROM. Absent: tenderness, meningismus - Chest Chest inspection: Present: normal inspection, symmetric chest wall rise. Absent : tenderness, rash - Respiratory Respiratory exam: Present: other (Decreased breath sounds throughout) - Cardiovascular Cardiovascular exam: Present: normal rhythm, tachycardia - Abdominal Exam Abdominal exam: Present: soft, Non-Tender. Absent: distention, guarding, rebound - Extremities Exam Extremities exam: Present: normal inspection, full ROM - Neurological Exam Neurological exam: Present: alert, oriented X3 - Psychiatric Psychiatric exam: Present: normal affect, normal mood - Skin Skin exam: Present: warm, dry Course Course Narrative: 57-year-old male with significant past medical history of CAD and COPD presenting with chest pain, dyspnea on exertion and fever. Patient had recent dental extraction. We will perform a sepsis workup along with dyspnea workup including CBC, BMP, troponin, blood cultures, chest x-ray, EKG. Patient is alert and oriented 3 in the room. He is tachycardic but all other vital signs within normal limits and stable. Disposition most likely will be admission due to patient's previous chest pain and strong history of CAD. Patient agrees to this plan. Disposition pending results - Reevaluation(s) Reevaluation #1: Patient's laboratory analysis and radiographs have resulted. Chest x-ray being read as pulmonary edema but the patient does not look fluid overloaded on exam. BNP was within normal limits. Patient presents more like a pneumonia. We will provide the patient with Rocephin and Levaquin and admit him for pneumonia and chest pain workup. Patient is alert and oriented 3 in the room with stable vital signs at this time. Patient agrees with this plan. I spoke with the hospitalist on-call Dr. Arrieta who agrees to accept the patient at this time. Vital Signs Temperature 99.7 F H 07/01/17 20:10 Pulse Rate 117 07/01/17 20:10 Respiratory Rate 20 07/01/17 20:10 Blood Pressure 117/77 07/01/17 20:10 O2 Sat by Pulse Oximetry 88 07/01/17 20:10 Temperature 99.7 F H 07/01/17 20:10 Pulse Rate 101 07/01/17 22:38 Respiratory Rate 22 07/01/17 22:38 Blood Pressure 106/68 07/01/17 22:38 O2 Sat by Pulse Oximetry 93 07/01/17 22:38 Oxygen Delivery Oxygen Delivery Nasal Cannula Medical Decision Making - Lab Data Result diagrams: 07/01/17 20:50 07/01/17 20:50 Lab Results 07/01/17 07/01/17 07/01/17 Range/Units 20:50 20:50 20:50 WBC 9.0 (4.3-11.1) K/mcL RBC 4.75 (4.19-5.50) M/mcL Hgb 16.4 (12.9-16.9) g/dL Hct 47.6 (37.5-50.1) % MCV 100.2 H (83.0-100.0) fL MCH 34.5 H (28.0-33.3) pg MCHC 34.5 (31.6-35.5) g/dL RDW 14.6 H (11.5-14.5) % Plt Count 158 (140-400) K/mcL MPV 11.3 (9.4-12.4) fL Immature Gran % 0.2 (0-4) % Seg Neutrophils % 76.0 % Lymphocytes % 11.3 % Monocytes % 11.8 % Eosinophils % 0.3 % Basophils % 0.4 % Neutrophils # 6.8 (1.6-8.9) K/mcL Lymphocytes # 1.0 (0.6-4.6) K/mcL Monocytes # 1.1 (0.0-1.3) K/mcL Eosinophils # 0.0 (0.0-0.6) K/mcL Basophils # 0.0 (0.0-0.2) K/mcL Sodium 135 L (136-145) mEq/L Potassium 3.7 (3.5-5.1) mEq/L Chloride 103 (98-107) mEq/L Carbon Dioxide 25 (23-29) mEq/L BUN 16 (6-20) mg/dL Creatinine 1.08 (0.70-1.30) mg/dL Est GFR ( Amer) > 60 (> 60) Est GFR (Non-Af Amer) > 60 (> 60) BUN/Creatinine Ratio 15 (6-26) Glucose 148 H (70-105) mg/dL Calculated Osmolality 284 (280-300) Lactic Acid (0.5-2.2) mmol/L Calcium 9.6 (8.6-10.3) mg/dL Troponin I < 0.03 (< 0.04) ng/mL B-Natriuretic Peptide 41 (Less than 100) pg/mL 07/01/17 Range/Units 20:55 WBC (4.3-11.1) K/mcL RBC (4.19-5.50) M/mcL Hgb (12.9-16.9) g/dL Hct (37.5-50.1) % MCV (83.0-100.0) fL MCH (28.0-33.3) pg MCHC (31.6-35.5) g/dL RDW (11.5-14.5) % Plt Count (140-400) K/mcL MPV (9.4-12.4) fL Immature Gran % (0-4) % Seg Neutrophils % % Lymphocytes % % Monocytes % % Eosinophils % % Basophils % % Neutrophils # (1.6-8.9) K/mcL Lymphocytes # (0.6-4.6) K/mcL Monocytes # (0.0-1.3) K/mcL Eosinophils # (0.0-0.6) K/mcL Basophils # (0.0-0.2) K/mcL Sodium (136-145) mEq/L Potassium (3.5-5.1) mEq/L Chloride (98-107) mEq/L Carbon Dioxide (23-29) mEq/L BUN (6-20) mg/dL Creatinine (0.70-1.30) mg/dL Est GFR ( Amer) (> 60) Est GFR (Non-Af Amer) (> 60) BUN/Creatinine Ratio (6-26) Glucose (70-105) mg/dL Calculated Osmolality (280-300) Lactic Acid 1.0 (0.5-2.2) mmol/L Calcium (8.6-10.3) mg/dL Troponin I (< 0.04) ng/mL B-Natriuretic Peptide (Less than 100) pg/mL - EKG Data EKG #1 EKG attestation: Yes I reviewed and interpreted this EKG. EKG results narrative: Sinus tachycardia. Left atrial enlargement. Right axis deviation. Right bundle branch block. 690 bpm. RI interval 154, QRS 150, QTc 416. ST depression in anterior leads noted. Compared to previous EKG completed on 05/21 new Right bundle branch block and ST depression in anterior leads Attestation Statement - Attestation Attestation: I examined this patient and my medical decision-making was reviewed with the Resident Physician. I agree with the documented findings, disposition and treatment plan as described except to the extent set forth below. Patient to the ED for any shortness of breath fever. He has not felt well since yesterday. He was doing some woodcutting before it started. Patient developed a fever last night. Today he went had multiple dental extractions performed. On arrival here patient was hypoxic. Diffuse wheezing. Afebrile at 99. He did just take ibuprofen. Plan. Septic workup does not show any obvious source. Chest x-rays read as possible pulmonary edema. He does not look her sounded fluid overloaded. He is treated for pneumonia.
[2017-07-01 21:34] LABS: BUN/Creatinine Ratio 15 (6-26); Blood Urea Nitrogen 16 mg/dL (6-20); Calcium 9.6 mg/dL (8.6-10.3); Carbon Dioxide 25 mEq/L (23-29); Chloride 103 mEq/L (98-107); Glucose 148 mg/dL (70-105); Osmolality,Calculated 284 (280-300); Potassium 3.7 mEq/L (3.5-5.1); Sodium 135 mEq/L (136-145); Troponin I < 0.03 ng/mL (< 0.04); eGFR For African Americans > 60 (> 60); eGFR For Non-African Americans > 60 (> 60)
[2017-07-01] MEDS ORDERED: predniSONE 20 MG TABLET PO ONE (21:35)
[2017-07-01] MEDS ORDERED: Ipratropium/Albuterol Neb 3 ML IH ONE (21:35)
[2017-07-01] MEDS ORDERED: Levofloxacin 750 MG/150 ML 750 MG/150 ML BAG IVPB ONE (22:14)
[2017-07-01] MEDS ORDERED: cefTRIAXone 2,000 MG in Water for inj. (sterile) 20 ML 20 ML IVPB ONE (22:14)
[2017-07-02] MEDS ORDERED: Acetaminophen 325 MG TABLET PO PRN (00:10)
[2017-07-02] MEDS ORDERED: Albuterol 2.5 MG/3 ML NEBULIZER IH PRN (00:10)
[2017-07-02] MEDS ORDERED: Naloxone 0.4 MG/ML INJ IVP PRN (00:10)
--- NOTE | 2017-07-02 00:28 | Internal Med History&Physical ---
Date of Encounter: 07/02/17 Time of Encounter: 00:05 Assessment and Plan (1) Influenza B Current visit: Yes Status: Acute 1. Will place on Tamiflu. 2. Start MIV, symptom relief. 3. Droplet precautions. (2) Lung nodule Current visit: Yes Status: Acute 1. Patient will need pulmonary follow up and repeat imaging as per radiology. 2. Smoking cessation well advised. (3) Pneumonia Current visit: Yes Status: Acute 1. Blood cultures ordered in ER. 2. Will place on Rocephin and Zithromax. 3. Oxygen as needed. 4. Bronchodilators PRN. Qualifiers: Pneumonia type: due to unspecified organism Laterality: right Lung location: lower lobe of lung Qualified Code(s): J18.1 - Lobar pneumonia, unspecified organism (4) Coronary artery disease Current visit: No Status: Chronic 1. Continue home meds as appropriate. 2. Monitor clinically. 3. No signs or symptoms of angina presently. Qualifiers: Coronary Disease-Associated Artery/Lesion type: [place] artery [place] vs. transplanted heart: [place] heart Associated angina: without angina Qualified Code(s): I25.10 - Atherosclerotic heart disease of [place] coronary artery without angina pectoris (5) DVT prophylaxis Current visit: Yes Status: Acute 1. Heparin SQ. Internal Medicine - H&P: HPI Chief complaint: cough, fevers, chills, body aches Admitted From: Emergency Dept Plans for Post Hospital Care: Home History of present illness: Mr. Waldrop is a 57 year old male with a 2 day history of abrupt onset of fevers, chills, body aches, cough, headache, and difficulty breathing. Symptoms worsened quickly over the last 10-12 hrs. He also had his teeth pulled earlier yesterday for dentures. Since then, he feels much worse. He therefore came in the ER where he was seen and evaluated and noted to be hypoxemic. Workup was performed in the ER, including chest x-ray suggestive of possible pulmonary edema. However, clinically he appeared to be euvolemic, and even dehydrated. Because of his hypoxemia and concern for pneumonia, he was admitted to hospitalist service. Influenza testing was requested and came back positive for flu B. He also was noted to be tachycardic with a new right bundle branch block. Given these findings, ER staff ordered CT angiogram of the chest to rule out pulmonary embolus. There is no PE, but there is mention of a nodule in the right middle lobe. I saw the patient in the ER and evaluated him there. I also discussed with the ER staff and reviewed images in the ER with ER attending physician. Patient confirms flulike symptoms for the last 24-48 hours. His cough has progressively worsened, his body aches and fatigue are severe, and he feels dehydrated. He denies any chest pain. His shortness of breath is secondary to his coughing and wheezing. He denies any hemoptysis. Appetite has been poor. Fluid intake is poor. He denies any vomiting or diarrhea. Past Med Surg Social Fam HX - Past Medical History Attestation: Yes The following information was validated with the patient. Source: patient, old records reviewed Medical history: atrial fibrillation, COPD, coronary artery disease, hyperlipidemia, hypertension, myocardial infarction Psychiatric history: no psych history - Past Surgical History Surgical History: coronary bypass (CABG), other - Social History Smoking Status: Current every day smoker Smokeless Tobacco Status: No Alcohol use: none Drug use: none Current living situation: Home, With Family Activity Level: Independent ambulation Recent Out of Country Travel Within the Last 8 Weeks: No - Family History Father Adopted: No Family Member Ethnicity: Non- Living Status: Hx Family Cardiac Disorders: Yes ([place]) Hx Family Respiratory Disorders: No Hx Family Cancer: Yes (Skin CA) Hx Family GI Disorders: No Hx Family Endocrine Disorder: No Hx Family Neuromuscular Disorders: No Hx Family Neurologic Disorders: No Hx Family HEENT Disorders: No Hx Family Autoimmune Disorders: No Mother Hx Family Endocrine Disorder: Yes (DM) Brother Hx Family Endocrine Disorder: Yes (DM) Sister Hx Family Endocrine Disorder: Yes (DM) Internal Medicine - H&P: Meds Aspirin 325 mg PO QAM 01/02/15 [History] Metoprolol [Lopressor] 50 mg PO BID 01/02/15 [History] Multivitamin/Iron/Folic Acid [Centrum Complete Multivit Tab] 1 each PO QAM 01/02 [History] NIFEdipine [Nifedipine ER] 30 mg PO QAM 01/02/15 [History] Simvastatin [Zocor] 40 mg PO QPM 01/02/15 [History] Budesonide/Formoterol 80/4.5 [Symbicort] 1 puff IH BIDR PRN 07/01/17 [History] Ibuprofen [Motrin] 800 mg PO Q8HR PRN 07/01/17 [History] Naproxen Sodium [Aleve] 220 - 440 mg PO Q12H PRN 07/01/17 [History] 3 Allergy/AdvReac Type Severity Reaction Status Date / Time egg Allergy Anaphylaxis Verified 12/22/16 14:04 Sulfa (Sulfonamide Allergy Anaphylaxis Verified 12/22/16 14:04 Antibiotics) - Constitutional Constitutional: chills, fatigue, fever(s), lethargy, weakness, no night sweats - EENT Eyes: no blurry vision, no change in vision Ears: no ear pain, no tinnitus Nose, mouth and throat: nasal congestion, sinus pressure, no neck pain, no nose pain, no odynophagia - Cardiovascular Cardiovascular ROS IM: dyspnea, no chest pain, no irregular heart rhythm, no lightheadedness, no orthopnea, no paroxysmal nocturnal dyspnea, no syncope - Respiratory Respiratory: cough, dyspnea, dyspnea on exertion, chest congestion, pain with cough, no hemoptysis, no excessive phlegm production, no change in phlegm color - Gastrointestinal Gastrointestinal: no abdominal pain, no diarrhea, no melena, no nausea, no vomiting - Genitourinary Genitourinary ROS male: no dysuria, no flank pain, no nocturia - Musculoskeletal Musculoskeletal ROS IM: muscle cramps, myalgias, no arthralgias, no back pain - Integumentary Integumentary IM: no rash, no jaundice - Neurological Neurological ROS: no dizziness, no focal weakness, no frequent falls, no headache(s) - Psychiatric Psychiatric: no anxiety, no depression - Endocrine Endocrine IM: cold intolerance, no polydipsia, no polyuria - Hematologic/Lymphatic Hematologic/Lymphatic: easy bruising, no lymphadenopathy - Allergic/Immunologic Allergic/Immunologic: no wheezing, no GI upset with certain foods - Constitutional Vitals: Temp Pulse Resp BP Pulse Ox 99.7 F H 101 22 106/68 93 07/01/17 20:10 07/01/17 22:38 07/01/17 22:38 07/01/17 22:38 07/01/17 22:38 General appearance: Present: cooperative, A&O X 3, pleasant Exam: ill-appearing but non-toxic - Head Head exam: Present: atraumatic, normal inspection - Eye Eye exam: Present: EOMI, normal appearance. Absent: periorbital tenderness, PERRL, scleral icterus - ENT ENT exam: Present: mucous membranes dry, normal external ear exam, normal oropharynx - Neck Neck exam general surgery: Present: full ROM, lymphadenopathy (mild tender anterior cervical lymphadenopathy), supple. Absent: tenderness, nuchal rigidity , thyromegaly - Respiratory Respiratory exam: Present: prolonged expiratory phase, rales (right base), respiratory distress (mild), wheezes. Absent: chest wall tenderness, decreased breath sounds, rhonchi, tachypnea - Cardiovascular Cardiovascular exam: Present: distant heart sounds, RRR, +S1, +S2, tachycardia. Absent: diastolic murmur, JVD, systolic murmur - GI/Abdominal GI/Abdominal exam: Present: soft. Absent: hepatomegaly, mass, splenomegaly, tenderness - Extremities Exam Extremities exam: Present: normal capillary refill, normal inspection. Absent: calf tenderness, joint swelling, pedal edema, tenderness, warm - Back Exam Back exam: Present: CVA tenderness (R). Absent: CVA tenderness (L), paraspinal tenderness - Neurological Exam Neurological exam: Present: alert, CN II-XII intact, oriented X3, no focal deficits, strengths equal and symetr throughout - Psychiatric Psychiatric exam: Present: normal affect, normal mood - Skin Skin exam: Present: dry, warm. Absent: rash Internal Med - H&P Results - Labs CBC & Chem 7: 07/01/17 20:50 07/01/17 20:50 - EKG Data -: EKG Interpreted by Myself - EKG Data Prior EKG available for review: yes EKG comments: 07/02/17 00:36 Sinus tachycardia with RBBB - Impressions ITS Impressions Chest CTA 07/01/17 22:49 IMPRESSION: 1. No evidence of pulmonary embolism 2. Pulmonary findings suggestive of chronic interstitial lung disease. Superimposed mild emphysema. 3. 0.7 cm pulmonary nodule in right middle lobe. 4. Findings suggestive of lipomatous hypertrophy of the interatrial septum. RECOMMENDATIONS: Fleischner Society guidelines for follow-up and management of incidentally detected pulmonary nodules: Single Solid Nodule: Nodule size equals 6-8 mm In a low-risk patient, CT at 6-12 months, then consider CT at 18-24 months. In a high-risk patient, CT at 6-12 months, then CT at 18-24 months. - Low risk patients include individuals with minimal or absent history of smoking and other known risk factors. - High risk patients include individuals with a history or smoking or known risk factors. Radiology 2017 http://pubs.[facility]na.org/doi/full/10.1148/radiol.[email or web address] D/ / Josue Dixon MD / Josue Dixon MD Interpreting Provider: Josue Dixon MD - Diagnostic Studies Chest x-ray Status: image reviewed by me (negative; disagree with pulmonary edema comments by readiology)
[2017-07-02] MEDS: 0.9 % Sodium Chloride w KCl 20 MEQ/1,000 ML MLS IVC SCH ×2 (01:10→16:47)
[2017-07-02] MEDS: Ipratropium/Albuterol Neb 3 ML IH SCH ×5 (03:45→15:50)
[2017-07-02] MEDS: *HR* Heparin 5,000 UNIT/ML VIAL SQ SCH ×2 (05:10→16:47)
[2017-07-02 05:14] LABS: Basophils % 0.2 %; Hematocrit 46.1 % (37.5-50.1); Hemoglobin 15.9 g/dL (12.9-16.9); Immature Granulocytes % 0.3 % (0-4); Lymphocytes # 0.7 K/mcL (0.6-4.6); Lymphocytes % 12.4 %; Mean Corpuscular HGB Conc 34.5 g/dL (31.6-35.5); Mean Corpuscular Volume 101.5 fL (83.0-100.0); Mean Platelet Volume 11.1 fL (9.4-12.4); Monocytes # 0.2 K/mcL (0.0-1.3); Monocytes % 2.9 %; Neutrophils # 4.9 K/mcL (1.6-8.9); Platelet Count 145 K/mcL (140-400); Red Blood Count 4.54 M/mcL (4.19-5.50); Red Cell Distribution Width 14.6 % (11.5-14.5); Segmented Neutrophils % 84.2 %
[2017-07-02 05:23] LABS: INR 1.4; Prothrombin Time 15.2 Seconds (9.4-12.1)
[2017-07-02 05:26] LABS: Activated Partial Thrombo Time 33.4 Seconds (26.0-36.0)
[2017-07-02 05:31] LABS: Alanine Aminotransferase 43 Units/L (7-52); Albumin 3.8 g/dL (3.5-5.7); Albumin/Globulin Ratio 1.2 (1.1-2.2); Alkaline Phosphatase 62 Units/L (34-104); Aspartate Amino Transferase 42 Units/L (13-39); BUN/Creatinine Ratio 17 (6-26); Bilirubin,Total 0.2 mg/dL (0.3-1.0); Blood Urea Nitrogen 16 mg/dL (6-20); Calcium 9.1 mg/dL (8.6-10.3); Carbon Dioxide 24 mEq/L (23-29); Chloride 104 mEq/L (98-107); Globulin 3.3 g/dL (2.4-3.5); Glucose 273 mg/dL (70-105); Magnesium 1.9 mg/dL (1.6-2.6); Osmolality,Calculated 289 (280-300); Potassium 4.2 mEq/L (3.5-5.1); Sodium 134 mEq/L (136-145); Total Protein 7.1 g/dL (6.4-8.9); eGFR For African Americans > 60 (> 60); eGFR For Non-African Americans > 60 (> 60)
[2017-07-02] MEDS ORDERED: Azithromycin 500 MG in D5% in Water 250 ML IVPB SCH (08:00)
[2017-07-02] MEDS: Multivit/Ca/Min/Fe/FA 1 TAB TABLET PO SCH (08:23)
[2017-07-02] MEDS: Aspirin 325 MG TABLET PO SCH (08:23)
[2017-07-02] MEDS ORDERED: cefTRIAXone 1,000 MG in Water for inj. (sterile) 20 ML 10 ML IVP SCH (09:00)
--- NOTE | 2017-07-02 10:02 | Event Note ---
Date of Encounter: 07/02/17 Time of Encounter: 09:56 This is a 57-year-old male with history of smoking and COPD presented with hypoxia, cough, and shortness of breath. He had a recent URI symptoms. Before admission he had a tooth extraction, which worsened his symptoms. On physical exam his vital signs were stable. Scattered wheezing noted bilaterally, fine crackles noted at the left lower lobe. The rest exam was unremarkable. Assessment/plan Atypical pneumonia/COPD exacerbation/flu - Chest x-ray possible atypical pneumonia, will switch antibiotics to Levaquin for better atypical organism coverage. - Continue home medication for COPD, hypoxia and shortness of breath have improved. - Continue Tamiflu - Sputum culture, repeat chest x-ray in the morning.
[2017-07-02] MEDS: Levofloxacin 750 MG/150 ML 750 MG/150 ML BAG IVPB SCH (13:10)
[2017-07-02] MEDS: Ibuprofen 800 MG TABLET PO PRN (15:32)
--- NOTE | 2017-07-02 17:32 | Event Note ---
Date of Encounter: 07/02/17 Time of Encounter: 17:32 pt reported having difficulty breathing and nurse reported pt having tachycardia with HR about 120. Exam the patient in the room. His vital signs showed no fever, HR 103, respiration 20, BP stable. fine crackles noted bilaterally. The rest of the exam was unremarkable. sob/tachycardia - Suspected Levaquin allergy, but Levaquin was given after the symptoms started. - Suspected side effect of albuterol, change DuoNeb to Atrovent PRN. - Suspected fungal infection, per patient he reported inhaled wood dust several the days ago, his symptoms started after that. Current treatment does not cover fungal infection including histoplasmosis. We will check sputum for fungal smear and a urine for histoplasmosis antigen. - Stat chest x-ray to rule out possible acute abnormalities. - tylenol for fever.
[2017-07-02] MEDS: Ipratropium Neb 0.5 MG NEBULIZER IH SCH ×2 (20:15→23:55)
[2017-07-02] MEDS: traMADol 50 MG TABLET PO PRN (23:13)
[2017-07-03] MEDS: Ipratropium Neb 0.5 MG NEBULIZER IH SCH ×6 (04:12→23:43)
[2017-07-03] MEDS: *HR* Heparin 5,000 UNIT/ML VIAL SQ SCH ×2 (05:22→17:16)
[2017-07-03] MEDS: Levofloxacin 750 MG/150 ML 750 MG/150 ML BAG IVPB SCH (08:05)
[2017-07-03] MEDS: Aspirin 325 MG TABLET PO SCH (08:06)
[2017-07-03] MEDS: Multivit/Ca/Min/Fe/FA 1 TAB TABLET PO SCH (08:06)
[2017-07-03] MEDS: Ibuprofen 800 MG TABLET PO PRN (08:17)
[2017-07-03 08:29] LABS: BUN/Creatinine Ratio 14 (6-26); Blood Urea Nitrogen 13 mg/dL (6-20); Calcium 8.6 mg/dL (8.6-10.3); Carbon Dioxide 24 mEq/L (23-29); Chloride 105 mEq/L (98-107); Glucose 129 mg/dL (70-105); Osmolality,Calculated 280 (280-300); Potassium 4.3 mEq/L (3.5-5.1); Sodium 134 mEq/L (136-145); eGFR For African Americans > 60 (> 60); eGFR For Non-African Americans > 60 (> 60)
[2017-07-03 08:35] LABS: Basophils % 0.2 %; Eosinophils % 0.2 %; Hematocrit 45.4 % (37.5-50.1); Hemoglobin 15.2 g/dL (12.9-16.9); Immature Granulocytes % 0.2 % (0-4); Lymphocytes # 1.7 K/mcL (0.6-4.6); Lymphocytes % 28.8 %; Mean Corpuscular HGB Conc 33.5 g/dL (31.6-35.5); Mean Corpuscular Hemoglobin 34.1 pg (28.0-33.3); Mean Corpuscular Volume 101.8 fL (83.0-100.0); Mean Platelet Volume 11.9 fL (9.4-12.4); Monocytes # 0.8 K/mcL (0.0-1.3); Neutrophils # 3.3 K/mcL (1.6-8.9); Platelet Count 144 K/mcL (140-400); Red Blood Count 4.46 M/mcL (4.19-5.50); Red Cell Distribution Width 14.6 % (11.5-14.5); Segmented Neutrophils % 57.6 %
--- NOTE | 2017-07-03 10:55 | Internal Med Progress Note ---
Date of Encounter: 07/03/17 Time of Encounter: 10:53 - Assessment and plan (1) Influenza B Current Visit: Yes Status: Acute Assessment and plan: Continue Tamiflu. Supportive hydration and supportive treatments. (2) Pneumonia Current Visit: Yes Status: Acute Assessment and plan: Blood cultures negative so far. Continue Rocephin and azithromycin. Oxygen when necessary and bronchodilators when necessary. Consider adding steroids. Continue to wean oxygen. Qualifiers: Pneumonia type: due to unspecified organism Laterality: right Lung location: lower lobe of lung Qualified Code(s): J18.1 - Lobar pneumonia, unspecified organism (3) Lung nodule Current Visit: Yes Status: Acute Assessment and plan: Patient will need a pulmonary follow-up and repeat imaging as an outpatient. Smoking cessation has been advised. (4) Tobacco abuse Current Visit: No Status: Chronic Assessment and plan: Smoking cessation advised. Patient would also benefit from outpatient pulmonary evaluation - Time Spent With Patient 25 - 35 minutes - Subjective Interval history: Patient continues to feel extreme weakness, malaise, body aches, chills since overnight. He also states that he recently had new dentures placed and he has occasional bleeding from his gums and severe pain when he tries to masticate - Constitutional Vitals: Temp Pulse Resp BP Pulse Ox 98.2 F 88 14 126/75 93 07/03/17 07:14 07/03/17 07:14 07/03/17 07:14 07/03/17 07:14 07/03/17 08:10 General appearance: Present: cooperative, A&O X 3, pleasant Exam: GENERAL: Alert, flushed, moderate distress, cooperative EYES: PERRLA, EOMI EARS: External ears normal, canals clear OROPHARYNX: New dentures Lips, mucosa, and tongue normal. NECK: No jugulovenous distention, No carotid bruits, Carotid pulse normal contour, Supple LUNGS: Scattered crackles heard bilaterally CARDIAC: Normal S1 and S2; no rubs, murmurs, or gallops ABDOMEN: Abdomen soft, non-tender, BS normal, No masses or organomegaly EXTREMITIES: Extremities normal, no deformities, edema, clubbing or skin discoloration. Good capillary refill., No ulcers Rest of the exam is non contributory Internal Medicine: Result - Labs CBC & Chem 7: 07/03/17 07:07 07/03/17 07:07 Labs: Short CBC 07/03/17 Range/Units 07:07 WBC 5.8 (4.3-11.1) K/mcL Hgb 15.2 (12.9-16.9) g/dL Hct 45.4 (37.5-50.1) % Plt Count 144 (140-400) K/mcL Neutrophils # 3.3 (1.6-8.9) K/mcL BMP 07/03/17 07:07 Sodium 134 L Potassium 4.3 Chloride 105 Carbon Dioxide 24 BUN 13 Creatinine 0.94 Glucose 129 H Calcium 8.6 - ABG Interpretation ABG results: PT/INR, D-dimer PT 15.2 Seconds (9.4-12.1) H 07/02/17 04:55 - Impressions Impressions Chest X-Ray 07/02/17 17:15 IMPRESSION: 1. Mild prominence of the interstitium, unchanged from prior exams and may be related to fibrosis seen on recent comparison CT. 2. Mild bibasilar opacities, most likely atelectasis. D/ / 07/02/2017 17:56:15 Lorenzo Broderick MD / [email or web address] Interpreting Provider: Lorenzo Broderick MD Consult Discharge Plan - Plan Referrals: Jalen Fletcher DO [Primary Care Provider] -
[2017-07-03] MEDS ORDERED: predniSONE 20 MG TABLET PO ONE (10:58)
[2017-07-03] MEDS: OXYCODONE Oral CONC 10 MG/0.5 ML ORAL.SYG SL PRN ×2 (11:09→21:37)
[2017-07-04] MEDS: Ipratropium Neb 0.5 MG NEBULIZER IH SCH ×6 (04:23→23:46)
[2017-07-04] MEDS: *HR* Heparin 5,000 UNIT/ML VIAL SQ SCH ×2 (05:17→17:52)
[2017-07-04] MEDS: Budesonide/Formoterol 80/4.5 MDI IH PRN ×2 (07:55→20:28)
[2017-07-04] MEDS: Levofloxacin 750 MG/150 ML 750 MG/150 ML BAG IVPB SCH (09:07)
[2017-07-04] MEDS: Aspirin 325 MG TABLET PO SCH (09:07)
[2017-07-04] MEDS: Multivit/Ca/Min/Fe/FA 1 TAB TABLET PO SCH (09:07)
--- NOTE | 2017-07-04 10:58 | Internal Med Progress Note ---
Date of Encounter: 07/04/17 Time of Encounter: 10:48 - Assessment and plan (1) Influenza B Current Visit: Yes Status: Acute Assessment and plan: Continue Tamiflu. Supportive hydration and supportive treatments. (2) Pneumonia Current Visit: Yes Status: Acute Assessment and plan: Blood cultures negative so far. Continue Levaquin. Continue nebs. Wean oxygen as tolerated. Follow up on sputum cultures. Has had history of fungal pneumonia. Fungal smear is negative. Qualifiers: Pneumonia type: due to unspecified organism Laterality: right Lung location: lower lobe of lung Qualified Code(s): J18.1 - Lobar pneumonia, unspecified organism (3) Acute exacerbation of chronic obstructive airways disease Current Visit: No Status: Acute Assessment and plan: The patient has significant wheezing on exam. We will add IV steroids today. Continue nebulizers. Wean oxygen as tolerated. (4) Lung nodule Current Visit: Yes Status: Acute Assessment and plan: Patient will need a pulmonary follow-up and repeat imaging as an outpatient. Smoking cessation has been advised. (5) Tobacco abuse Current Visit: No Status: Chronic Assessment and plan: Smoking cessation advised. Patient would also benefit from outpatient pulmonary evaluation (6) DVT prophylaxis Current Visit: Yes Status: Acute Assessment and plan: Heparin subcutaneous - Subjective Interval history: Patient seen and examined. Says he is feeling worse. Having night sweats. Feels warm. Having a dry cough. Remains on 2.5 L of nasal cannula oxygen. Says at home he is on oxygen when necessary however he really does not use it much. - Constitutional Vitals: Temp Pulse Resp BP Pulse Ox 98.2 F 82 18 133/79 93 07/04/17 06:49 07/04/17 06:49 07/04/17 07:58 07/04/17 06:49 07/04/17 07:58 General appearance: Present: cooperative, A&O X 3, pleasant Exam: GEN: NAD CVS: RRR. S1, S2, No m/r/g RESP: Diffuse expiratory wheezes anterior and posterior lung tristan. ABD: Soft, NT, ND, +BS EXT: No edema. 2+ DP. No rashes NEURO: Nonfocal Internal Medicine: Result - Labs CBC & Chem 7: 07/03/17 07:07 07/03/17 07:07 - ABG Interpretation ABG results: PT/INR, D-dimer PT 15.2 Seconds (9.4-12.1) H 07/02/17 04:55 Consult Discharge Plan - Plan Referrals: ColJalen fernando DO [Primary Care Provider] -
[2017-07-04] MEDS: methylPREDNISolone 125 MG/2 ML VIAL IVP SCH ×2 (15:06→23:11)
[2017-07-04] MEDS: traMADol 50 MG TABLET PO PRN (15:06)
--- NOTE | 2017-07-04 18:43 | Electrocardiograph Report ---
[place] [id number] Test Date: 2017-07-01 Pat Name: Harsh Waldrop Department: 104 Room: 3A46 Gender: M Slag Wheeler: BRETT : 1960 Requested By: Guerita Valiente Order Number: [id number] Reading MD: Chaitanya Lam MD Measurements Intervals [place] Rate: 109 P: 62 WV: 154 QRS: 108 QRSD: 150 T: -5 QT: 352 QTc: 416 Interpretive Statements SINUS TACHYCARDIA LEFT ATRIAL ENLARGEMENT MARKED RIGHT AXIS DEVIATION RIGHT BUNDLE BRANCH BLOCK Electronically Signed On 07-04-2017 18:42:03 EDT by Chaitanya Lam MD
[2017-07-04] MEDS: Ibuprofen 800 MG TABLET PO PRN (20:16)
[2017-07-05] MEDS: Ipratropium Neb 0.5 MG NEBULIZER IH SCH ×6 (04:22→23:11)
[2017-07-05] MEDS: *HR* Heparin 5,000 UNIT/ML VIAL SQ SCH ×2 (04:29→16:56)
[2017-07-05 09:32] LABS: Hematocrit 51.1 % (37.5-50.1); Immature Granulocytes % 0.5 % (0-4); Lymphocytes % 18.3 %; Mean Corpuscular HGB Conc 33.7 g/dL (31.6-35.5); Mean Corpuscular Hemoglobin 34.1 pg (28.0-33.3); Mean Corpuscular Volume 101.4 fL (83.0-100.0); Mean Platelet Volume 11.5 fL (9.4-12.4); Platelet Count 157 K/mcL (140-400); Red Blood Count 5.04 M/mcL (4.19-5.50); Red Cell Distribution Width 13.9 % (11.5-14.5); Segmented Neutrophils % 76.8 %
[2017-07-05 09:33] LABS: Basophils % 0.2 %; Lymphocytes # 1.1 K/mcL (0.6-4.6); Monocytes # 0.3 K/mcL (0.0-1.3); Monocytes % 4.2 %; Neutrophils # 4.5 K/mcL (1.6-8.9)
[2017-07-05] MEDS: methylPREDNISolone 125 MG/2 ML VIAL IVP SCH ×3 (09:34→23:11)
[2017-07-05] MEDS: Levofloxacin 750 MG/150 ML 750 MG/150 ML BAG IVPB SCH (09:35)
[2017-07-05] MEDS: Aspirin 325 MG TABLET PO SCH (09:36)
[2017-07-05] MEDS: Multivit/Ca/Min/Fe/FA 1 TAB TABLET PO SCH (09:36)
[2017-07-05 09:38] LABS: Hemoglobin 17.2 g/dL (12.9-16.9)
[2017-07-05 11:17] LABS: BUN/Creatinine Ratio 24 (6-26); Blood Urea Nitrogen 24 mg/dL (6-20); Calcium 9.6 mg/dL (8.6-10.3); Carbon Dioxide 27 mEq/L (23-29); Chloride 98 mEq/L (98-107); Glucose 186 mg/dL (70-105); Osmolality,Calculated 293 (280-300); Potassium 4.3 mEq/L (3.5-5.1); Sodium 137 mEq/L (136-145); eGFR For African Americans > 60 (> 60); eGFR For Non-African Americans > 60 (> 60)
[2017-07-05] MEDS: Budesonide/Formoterol 80/4.5 MDI IH PRN (11:44)
--- NOTE | 2017-07-05 18:48 | Internal Med Progress Note ---
Date of Encounter: 07/05/17 Time of Encounter: 11:00 - Assessment and plan (1) Acute respiratory failure with hypoxia Current Visit: No Status: Acute Assessment and plan: -Patient still requiring high amounts of oxygen supplementation secondary to influenza B and pneumonia -Management as below (2) Influenza B Current Visit: Yes Status: Acute Assessment and plan: Patient continues to require high amounts of supplemental oxygenation Will continue day 4/5 of Tamiflu (3) Pneumonia Current Visit: Yes Status: Acute Assessment and plan: -Patient continues to require a high amount of supplemental oxygenation -Continue IV Levaquin Qualifiers: Pneumonia type: due to unspecified organism Laterality: right Lung location: lower lobe of lung Qualified Code(s): J18.1 - Lobar pneumonia, unspecified organism (4) Acute exacerbation of chronic obstructive airways disease Current Visit: No Status: Acute Assessment and plan: Secondary to the above Solu-Medrol initiated; DuoNeb's (5) Lung nodule Current Visit: Yes Status: Acute Assessment and plan: Monitor as outpatient (6) Tobacco abuse Current Visit: No Status: Chronic Assessment and plan: Smoking cessation (7) DVT prophylaxis Current Visit: Yes Status: Acute Assessment and plan: Subcutaneous heparin - Subjective Interval history: Patient still requiring high amounts of oxygen supplementation on 4 L at 88% due to influenza B and pneumonia - Constitutional Vitals: Temp Pulse Resp BP Pulse Ox 97.5 F L 70 16 123/75 93 07/05/17 14:25 07/05/17 14:25 07/05/17 15:27 07/05/17 14:25 07/05/17 15:27 General appearance: Present: cooperative, A&O X 3, pleasant, no acute distress - Respiratory Respiratory exam: Present: wheezes (Bilateral expiratory wheezes). Absent: respiratory distress - Cardiovascular Cardiovascular exam: Present: RRR, +S1, +S2. Absent: diastolic murmur, gallop, rubs, systolic murmur Internal Medicine: Result - Labs CBC & Chem 7: 07/05/17 09:18 07/05/17 09:18 Labs: Short CBC 07/05/17 Range/Units 09:18 WBC 5.9 (4.3-11.1) K/mcL Hgb 17.2 H D (12.9-16.9) g/dL Hct 51.1 H (37.5-50.1) % Plt Count 157 (140-400) K/mcL Neutrophils # 4.5 (1.6-8.9) K/mcL BMP 07/05/17 09:18 Sodium 137 Potassium 4.3 Chloride 98 Carbon Dioxide 27 BUN 24 H Creatinine 1.00 Glucose 186 H Calcium 9.6 - ABG Interpretation ABG results: PT/INR, D-dimer PT 15.2 Seconds (9.4-12.1) H 07/02/17 04:55 Consult Discharge Plan - Plan Referrals: ColopyJalen DO [Primary Care Provider] -
[2017-07-05] MEDS: Ibuprofen 800 MG TABLET PO PRN (23:10)
[2017-07-06] MEDS: Ipratropium Neb 0.5 MG NEBULIZER IH SCH ×6 (03:28→23:50)
[2017-07-06] MEDS: *HR* Heparin 5,000 UNIT/ML VIAL SQ SCH ×2 (05:54→16:55)
[2017-07-06] MEDS: Budesonide/Formoterol 80/4.5 MDI IH PRN (07:38)
[2017-07-06] MEDS: Aspirin 325 MG TABLET PO SCH (08:17)
[2017-07-06] MEDS: methylPREDNISolone 125 MG/2 ML VIAL IVP SCH ×2 (08:17→16:55)
[2017-07-06] MEDS: Multivit/Ca/Min/Fe/FA 1 TAB TABLET PO SCH (08:17)
[2017-07-06] MEDS: Levofloxacin 750 MG/150 ML 750 MG/150 ML BAG IVPB SCH (08:18)
[2017-07-06 10:20] LABS: Basophils % 0.1 %; Immature Granulocytes % 0.5 % (0-4); Lymphocytes # 1.2 K/mcL (0.6-4.6); Lymphocytes % 9.7 %; Mean Corpuscular HGB Conc 33.3 g/dL (31.6-35.5); Mean Corpuscular Hemoglobin 33.8 pg (28.0-33.3); Mean Corpuscular Volume 101.5 fL (83.0-100.0); Mean Platelet Volume 11.6 fL (9.4-12.4); Monocytes # 0.4 K/mcL (0.0-1.3); Neutrophils # 10.6 K/mcL (1.6-8.9); Platelet Count 144 K/mcL (140-400); Red Blood Count 4.73 M/mcL (4.19-5.50); Red Cell Distribution Width 13.8 % (11.5-14.5); Segmented Neutrophils % 86.7 %
[2017-07-06 11:04] LABS: BUN/Creatinine Ratio 31 (6-26); Blood Urea Nitrogen 33 mg/dL (6-20); Calcium 9.3 mg/dL (8.6-10.3); Carbon Dioxide 31 mEq/L (23-29); Chloride 98 mEq/L (98-107); Glucose 278 mg/dL (70-105); Osmolality,Calculated 297 (280-300); Potassium 4.5 mEq/L (3.5-5.1); Sodium 135 mEq/L (136-145); eGFR For African Americans > 60 (> 60); eGFR For Non-African Americans > 60 (> 60)
--- NOTE | 2017-07-06 17:30 | Internal Med Progress Note ---
Date of Encounter: 07/06/17 Time of Encounter: 11:00 - Assessment and plan (1) Acute respiratory failure with hypoxia Current Visit: No Status: Acute Assessment and plan: -Patient now requiring less oxygenation since starting IV Solu-Medrol -Will continue to wean supplemental oxygenation as tolerates -Management as below (2) Influenza B Current Visit: Yes Status: Acute Assessment and plan: Will complete day 5/5 of Tamiflu (3) Pneumonia Current Visit: Yes Status: Acute Assessment and plan: -Patient now requiring less supplemental oxygenation -Continue IV Levaquin Qualifiers: Pneumonia type: due to unspecified organism Laterality: right Lung location: lower lobe of lung Qualified Code(s): J18.1 - Lobar pneumonia, unspecified organism (4) Acute exacerbation of chronic obstructive airways disease Current Visit: No Status: Acute Assessment and plan: Patient reports that shortness of breath has improved and requiring less supplemental oxygenation this morning. Will continue an additional day of Solu-Medrol initiated on 07/05/17; continue DuoNeb's (5) Lung nodule Current Visit: Yes Status: Acute Assessment and plan: Monitor as outpatient (6) Tobacco abuse Current Visit: No Status: Chronic Assessment and plan: Smoking cessation (7) DVT prophylaxis Current Visit: Yes Status: Acute Assessment and plan: Subcutaneous heparin - Subjective Interval history: Patient reports that shortness of breath has improved tremendously and now requiring less supplemental oxygenation; currently on 2 L - Constitutional Vitals: Temp Pulse Resp BP Pulse Ox 99.0 F 74 16 112/67 93 07/06/17 15:25 07/06/17 15:25 07/06/17 15:44 07/06/17 15:25 07/06/17 15:44 General appearance: Present: cooperative, A&O X 3, pleasant, no acute distress - Respiratory Respiratory exam: Present: CTAB. Absent: accessory muscle use, rales, rhonchi, wheezes - Cardiovascular Cardiovascular exam: Present: RRR, +S1, +S2. Absent: diastolic murmur, gallop, rubs, systolic murmur Internal Medicine: Result - Labs CBC & Chem 7: 07/06/17 09:36 07/06/17 09:36 Labs: Short CBC 07/06/17 Range/Units 09:36 WBC 12.2 H D (4.3-11.1) K/mcL Hgb 16.0 (12.9-16.9) g/dL Hct 48.0 (37.5-50.1) % Plt Count 144 (140-400) K/mcL Neutrophils # 10.6 H (1.6-8.9) K/mcL BMP 07/06/17 09:36 Sodium 135 L Potassium 4.5 Chloride 98 Carbon Dioxide 31 H BUN 33 H Creatinine 1.08 Glucose 278 H Calcium 9.3 - ABG Interpretation ABG results: PT/INR, D-dimer PT 15.2 Seconds (9.4-12.1) H 07/02/17 04:55 Consult Discharge Plan - Plan Referrals: ColJalen fernando DO [Primary Care Provider] -
[2017-07-06] MEDS: Budesonide/Formoterol 80/4.5 MDI IH SCH (20:15)
[2017-07-07] MEDS: methylPREDNISolone 125 MG/2 ML VIAL IVP SCH ×2 (00:27→08:00)
[2017-07-07] MEDS: Ipratropium Neb 0.5 MG NEBULIZER IH SCH ×3 (04:34→11:28)
[2017-07-07] MEDS: *HR* Heparin 5,000 UNIT/ML VIAL SQ SCH (05:30)
[2017-07-07 07:30] LABS: Basophils % 0.2 %; Hematocrit 48.3 % (37.5-50.1); Hemoglobin 16.4 g/dL (12.9-16.9); Immature Granulocytes % 0.5 % (0-4); Lymphocytes # 1.2 K/mcL (0.6-4.6); Mean Corpuscular Hemoglobin 34.2 pg (28.0-33.3); Mean Corpuscular Volume 100.6 fL (83.0-100.0); Mean Platelet Volume 11.9 fL (9.4-12.4); Monocytes # 0.3 K/mcL (0.0-1.3); Monocytes % 2.8 %; Neutrophils # 10.7 K/mcL (1.6-8.9); Nucleated Red Blood Cells 0.2 /100 WBC (0); Platelet Count 138 K/mcL (140-400); Red Cell Distribution Width 13.6 % (11.5-14.5); Segmented Neutrophils % 86.5 %
[2017-07-07 07:32] VITALS: BP 130/75
[2017-07-07] MEDS: Aspirin 325 MG TABLET PO SCH (07:59)
[2017-07-07] MEDS: Levofloxacin 750 MG/150 ML 750 MG/150 ML BAG IVPB SCH (08:00)
[2017-07-07] MEDS: Multivit/Ca/Min/Fe/FA 1 TAB TABLET PO SCH (08:00)
[2017-07-07] MEDS: Budesonide/Formoterol 80/4.5 MDI IH SCH (08:14)
[2017-07-07 09:29] LABS: BUN/Creatinine Ratio 29 (6-26); Blood Urea Nitrogen 26 mg/dL (6-20); Calcium 9.4 mg/dL (8.6-10.3); Carbon Dioxide 28 mEq/L (23-29); Chloride 101 mEq/L (98-107); Glucose 232 mg/dL (70-105); Osmolality,Calculated 290 (280-300); Potassium 4.6 mEq/L (3.5-5.1); Sodium 134 mEq/L (136-145); eGFR For African Americans > 60 (> 60); eGFR For Non-African Americans > 60 (> 60)
--- NOTE | 2017-07-07 11:58 | Discharge Summary ---
- NOTES TO OUTPATIENT PROVIDER Notes to Outpatient Provider: Patient will need to follow up with repeat CT of chest in 6-12 months for incidental finding of 0.7 cm pulmonary nodule in the right middle lobe given smoking history Date of Encounter: 07/07/17 Time of Encounter: 10:00 - Discharge Diagnosis (1) Acute respiratory failure with hypoxia Priority: Primary Status: Acute (2) Influenza B Priority: Primary Status: Acute (3) Pneumonia Priority: Primary Status: Acute Qualifiers: Pneumonia type: due to unspecified organism Laterality: right Lung location: lower lobe of lung Qualified Code(s): J18.1 - Lobar pneumonia, unspecified organism (4) Acute exacerbation of chronic obstructive airways disease Priority: Primary Status: Acute (5) Lung nodule Priority: Secondary Status: Acute (6) Tobacco abuse Priority: Secondary Status: Chronic Hospital course: Patient is a 57-year-old male with past medical history significant for atrial fibrillation, coronary arterial disease, hypertension, hyperlipidemia and COPD who presents to the ER on 07/02/17 due to shortness of breath congestion and fever. He reported of a 2 day history of abrupt onset of fevers, chills, body aches, cough, headache, and difficulty breathing. Symptoms worsened quickly over the last 10-12 hrs. In the ER, chest x-ray suggestive of possible pulmonary edema. However, clinically he appeared to be euvolemic, and even dehydrated. Influenza testing was requested and came back positive for flu B. There is no PE, but there is mention of a nodule in the right middle lobe. Patient was admitted to medical surgical floor for acute hypoxic respiratory failure secondary to influenza B and pneumonia. During patients hospital stay his oxygen requirements was able to be weaned down after a 5 day course of Tamiflu for influenza B and a 5 day course of treatment of pneumonia with IV Levaquin. Is also treated with IV steroids and DuoNebs. Patient will be discharged to complete a 5 day course of Levaquin and prednisone ; follow-up with primary care provider. Patient will need to follow up with repeat CT of chest in 6-12 months for incidental finding of 0.7 cm pulmonary nodule in the right middle lobe. - Time Spent with Patient Total time spent providing and/or coordinating discharge services: Less than 30 minutes - Discharge Medications Prescriptions: levoFLOXacin [Levaquin] 750 mg PO DAILY 5 Days #5 tablet predniSONE [PredniSONE] 40 mg PO DAILY #10 tablet Home Medications: Aspirin 325 mg PO QAM 01/02/15 [History] Metoprolol [Lopressor] 50 mg PO BID 01/02/15 [History] Multivitamin/Iron/Folic Acid [Centrum Complete Multivit Tab] 1 each PO QAM 01/02 [History] NIFEdipine [Nifedipine ER] 30 mg PO QAM 01/02/15 [History] Simvastatin [Zocor] 40 mg PO QPM 01/02/15 [History] Budesonide/Formoterol 80/4.5 [Symbicort] 1 puff IH BIDR PRN 07/01/17 [History] Ibuprofen [Motrin] 800 mg PO Q8HR PRN 07/01/17 [History] Naproxen Sodium [Aleve] 220 - 440 mg PO Q12H PRN 07/01/17 [History] levoFLOXacin [Levaquin] 750 mg PO DAILY 5 Days #5 tablet 07/07/17 [Rx] predniSONE [PredniSONE] 40 mg PO DAILY #10 tablet 07/07/17 [Rx] Allergies/Adverse Reactions: 3 Allergy/AdvReac Type Severity Reaction Status Date / Time egg Allergy Anaphylaxis Verified 12/22/16 14:04 Sulfa (Sulfonamide Allergy Anaphylaxis Verified 12/22/16 14:04 Antibiotics) Date of admission: 07/02/17 00:10 Primary care physician: Jalen Fletcher - Constitutional Vitals: Temp Pulse Resp BP Pulse Ox 98.2 F 64 16 130/75 92 07/07/17 07:30 07/07/17 07:30 07/07/17 11:28 07/07/17 07:30 07/07/17 11:28 General appearance: Present: cooperative, A&O X 3, pleasant, no acute distress - Respiratory Respiratory exam: Present: CTAB. Absent: accessory muscle use, rales, rhonchi, wheezes - Cardiovascular Cardiovascular exam: Present: RRR, +S1, +S2. Absent: diastolic murmur, gallop, rubs, systolic murmur - Patient Status Disposition: Home, Self-Care Condition: Good - Discharge Instructions Instructions: Prednisone (By mouth), Levofloxacin (By mouth), Influenza (GEN) Follow Up With: Jalen Fletcher DO [Primary Care Provider] -
== END 2017-07-07 14:28 | disposition home or self-care (01) | DRG 193 ==
LOC: 3ANU 20:08 → EMEROO 20:08 → SUATTDRO 07-02 00:10 → 3ANU 07-02 00:40
PROVIDERS: ADMIT Internal Medicine; ATTEND Hospitalist

== ENCOUNTER 2017-12-25 21:10 | Observation (INO) ==
[2017-12-25] MEDS ORDERED: 0.9 % Sodium Chloride 1,000 ML IVC ONE (21:57)
[2017-12-25] MEDS ORDERED: methylPREDNISolone 125 MG/2 ML VIAL IVP ONE (21:57)
[2017-12-25] MEDS ORDERED: Ipratropium/Albuterol Neb 3 ML IH ONE (21:57)
--- NOTE | 2017-12-25 22:01 | Emergency Department Note ---
Disposition Clinical Impression: Acute exacerbation of chronic bronchitis, Tobacco abuse Chest pain Qualifiers: Chest pain type: unspecified Qualified Code(s): R07.9 - Chest pain, unspecified Disposition: Admitted As Inpatient Condition: Fair Referrals: Jalen Fletcher DO [Primary Care Provider] - Forms: ED Satisfaction Letter Time of Disposition: 00:02 General Adult HPI - General Chief complaint: ED Shortness of Breath/Dyspnea Stated complaint: LEO, fever Time Seen by Provider: 12/25/17 21:22 Source: patient, family Mode of arrival: ambulatory Limitations: no limitations Nursing Notes Reviewed: Yes Vital Signs Reviewed: Yes - History of Present Illness HPI Narrative: 57-year-old male with a history of hypertension as well as tobacco abuse presents for evaluation of shortness of breath, fevers. Patient states symptom onset has been over the past week. Patient's noted that he spell "like crap". States that he has been having shortness of breath. States that he quit smoking 2 days ago. Does note a productive white mucousy cough. Reports subjective fevers. States that he does get admitted for pneumonia in the past there is concern that he has pneumonia. States that he has had chest pain over the past 6 months and has had a recent heart catheter 2 months ago that was reported as normal. Patient does have a history of bypass. States that he feels that he aches everywhere. Does have known ill contacts at home with respiratory complaints. Does not have an albuterol at home but does have Symbicort. Pain Scale: 9 - Related Data Home Medications Medication Instructions Recorded Confirmed Aspirin [Lo-Dose Aspirin EC] 81 mg PO DAILY 10/12/17 10/12/17 Metoprolol [Lopressor] 50 mg PO BID 10/12/17 10/12/17 Multivitamin [Multivitamins] 1 each PO DAILY 10/12/17 10/12/17 NIFEdipine XL (24 HR) [Procardia 30 mg PO DAILY 10/12/17 10/12/17 XL] Simvastatin [Zocor] 40 mg PO DAILY 10/12/17 10/12/17 amLODIPine [Norvasc] 2.5 mg PO DAILY 10/12/17 10/12/17 Allergies Allergy/AdvReac Type Severity Reaction Status Date / Time egg Allergy Anaphylaxis Verified 12/22/16 14:04 Sulfa (Sulfonamide Allergy Anaphylaxis Verified 12/22/16 14:04 Antibiotics) All systems ED: reviewed and negative except as stated. Constitutional: Reports: fever Cardiovascular: Reports: chest pain Respiratory: Reports: cough, dyspnea, sputum production Gastrointestinal: Denies: abdominal pain, nausea, vomiting Past Medical History - Past Medical History Source: patient, obtained from family Medical history: Reports: atrial fibrillation, COPD, coronary artery disease, hyperlipidemia, hypertension, myocardial infarction Surgical history: Reports: coronary bypass (CABG), other Psychiatric history: Reports: no psych history - Social History Smoking Status: Current every day smoker Smokeless Tobacco Status: No Alcohol use: Reports: none Drug use: Reports: none Physical Exam - General Limitations: no limitations General appearance: alert, in no apparent distress - Head Head exam: atraumatic, normocephalic, normal inspection - Eye Eye exam: Present: normal appearance, EOMI - ENT ENT exam: normal exam, mucous membranes moist - Neck Neck exam: Present: normal inspection, trachea midline - Chest Chest inspection: Present: normal inspection, symmetric chest wall rise - Respiratory Respiratory exam: Present: wheezes (Diffuse expiratory inspiratory wheezes throughout all lung tristan.), prolonged expiratory phase - Cardiovascular Cardiovascular exam: Present: regular rate, normal rhythm, normal heart sounds - Abdominal Exam Abdominal exam: Present: soft, Non-Tender. Absent: guarding, rebound - Extremities Exam Extremities exam: Present: normal inspection. Absent: pedal edema - Expanded Lower Extremity Exam Neurovascular/Tendon exam: Present: normal capillary refill - Back Exam Back exam: Present: normal inspection - Neurological Exam Neurological exam: Present: alert, oriented X3, CN II-XII intact - Skin Skin exam: Present: warm, dry, intact, normal color Course Course Narrative: Patient seen and examined. Patient has a strong history of tobacco use. Likely possible bronchitis. However given the patient's complaint of dyspnea with some exertion the patient will get basic labs including a troponin as well as BNP. Will get nebs, steroids. Disposition pending. - Reevaluation(s) Reevaluation #1: Patient seen and examined. Continues to have increased work of breathing. Time: 23:29 Reevaluation #2: Patient seen and examined. Patient breathing slightly improved however the patient does have borderline oxygen saturation. Patient would likely need more aggressive therapy than what can be performed in the outpatient setting. Patient also has concerning unstable angina symptoms over the past week. Denying chest pain currently. Patient was given aspirin. Time: 00:02 Vital Signs Temperature 99.6 F 12/25/17 21:29 Pulse Rate 92 12/25/17 21:29 Respiratory Rate 22 12/25/17 21:29 Blood Pressure 129/77 12/25/17 21:29 O2 Sat by Pulse Oximetry 91 12/25/17 21:29 Temperature 99.6 F 12/25/17 21:36 Pulse Rate 80 12/25/17 23:10 Respiratory Rate 18 12/25/17 23:21 Blood Pressure 130/75 12/25/17 23:10 O2 Sat by Pulse Oximetry 93 12/25/17 23:21 Oxygen Delivery Oxygen Delivery Nasal Cannula Medical Decision Making - [facility] [place] Narrative Medical decision making narrative: Patient presents for concerns of shortness of breath and chest pain. Patient states he has not felt well over the past week. Patient does have a history concerning for COPD and likely has an element of bronchitis. Patient's lungs did mildly improve with aerosols and steroids. Patient would likely need more aggressive management as an inpatient. Patient's labs show leukocytosis which at this point possibly is early pneumonia. Patient does not appear septic. Normal lactate. Stable vitals. Patient was given a liter of fluids. Patient was also given aspirin due to his history over the past week of concerning for unstable angina. Patient did have recent heart catheter which showed severe three-vessel disease. Patient did have some EKG changes which is not a STEMI. Patient was treated with Rocephin and Zithromax concerns for bronchitis or community acquired pneumonia. Patient is agreeable to this plan of care. Patient's symptoms are not consistent with a PE. - Medical Records Medical records reviewed: Yes I reviewed the patient's medical records. Impressions: There is severe three vessel coronary artery disease. The left ventricle is normal and has normal contractility EF 50% S/P CABG 3 of 3 patent bypass grafts. - Lab Data Result diagrams: 12/25/17 21:46 12/25/17 21:46 Lab Results 12/25/17 12/25/17 12/25/17 Range/Units 21:46 21:46 21:46 WBC 18.7 H (4.3-11.1) K/mcL RBC 4.50 (4.19-5.50) M/mcL Hgb 15.9 (12.9-16.9) g/dL Hct 45.5 (37.5-50.1) % MCV 101.1 H (83.0-100.0) fL MCH 35.3 H (28.0-33.3) pg MCHC 34.9 (31.6-35.5) g/dL RDW 14.5 (11.5-14.5) % Plt Count 184 (140-400) K/mcL MPV 11.6 (9.4-12.4) fL Immature Gran % 0.6 (0-4) % Seg Neutrophils % 77.7 % Lymphocytes % 12.5 % Monocytes % 7.1 % Eosinophils % 1.8 % Basophils % 0.3 % Neutrophils # 14.5 H (1.6-8.9) K/mcL Lymphocytes # 2.3 (0.6-4.6) K/mcL Monocytes # 1.3 (0.0-1.3) K/mcL Eosinophils # 0.3 (0.0-0.6) K/mcL Basophils # 0.1 (0.0-0.2) K/mcL Sodium 137 (136-145) mEq/L Potassium 3.5 (3.5-5.1) mEq/L Chloride 103 (98-107) mEq/L Carbon Dioxide 23 (23-29) mEq/L BUN 14 (6-20) mg/dL Creatinine 0.95 (0.70-1.30) mg/dL Est GFR ( Amer) > 60 (> 60) Est GFR (Non-Af Amer) > 60 (> 60) BUN/Creatinine Ratio 15 (6-26) Glucose 218 H (70-105) mg/dL Calculated Osmolality 291 (280-300) Lactic Acid (0.5-2.2) mmol/L Calcium 9.2 (8.6-10.3) mg/dL Troponin I 0.03 (< 0.04) ng/mL B-Natriuretic Peptide 46 (Less than 100) pg/mL 12/25/17 Range/Units 22:42 WBC (4.3-11.1) K/mcL RBC (4.19-5.50) M/mcL Hgb (12.9-16.9) g/dL Hct (37.5-50.1) % MCV (83.0-100.0) fL MCH (28.0-33.3) pg MCHC (31.6-35.5) g/dL RDW (11.5-14.5) % Plt Count (140-400) K/mcL MPV (9.4-12.4) fL Immature Gran % (0-4) % Seg Neutrophils % % Lymphocytes % % Monocytes % % Eosinophils % % Basophils % % Neutrophils # (1.6-8.9) K/mcL Lymphocytes # (0.6-4.6) K/mcL Monocytes # (0.0-1.3) K/mcL Eosinophils # (0.0-0.6) K/mcL Basophils # (0.0-0.2) K/mcL Sodium (136-145) mEq/L Potassium (3.5-5.1) mEq/L Chloride (98-107) mEq/L Carbon Dioxide (23-29) mEq/L BUN (6-20) mg/dL Creatinine (0.70-1.30) mg/dL Est GFR ( Amer) (> 60) Est GFR (Non-Af Amer) (> 60) BUN/Creatinine Ratio (6-26) Glucose (70-105) mg/dL Calculated Osmolality (280-300) Lactic Acid 1.4 (0.5-2.2) mmol/L Calcium (8.6-10.3) mg/dL Troponin I (< 0.04) ng/mL B-Natriuretic Peptide (Less than 100) pg/mL - Radiology Data Radiology results reviewed: Yes I reviewed the patient's radiology results. Chest X-Ray 12/25/17 21:57 IMPRESSION: No definite acute pulmonary disease. Chronic changes related to pulmonary fibrosis. Calcific atherosclerotic disease aorta. D/ / Jeff Lerner / Jeff Lerner Interpreting Provider: Jeff Lerner - EKG Data EKG #1 EKG attestation: Yes I reviewed and interpreted this EKG. EKG shows normal: sinus rhythm Rate: normal Rhythm: NSR [place]/QRS: right axis deviation, RBBB P waves: LAE T wave inversions noted in: v1, v2, v3 When compared to previous EKG there are: changes noted (09/2017) Interpretation: no acute changes, nonspecific ST-T wave changes S.B.Pancho - Hanh Situation: Demographics Background: Presenting Complaint Assessment: Vital Signs, Course and respsone to treatment, Patient/Family Expectation Recommendation: Barrier(s) to disposition, Recommendation based on pending studies, treatments, or consults S.B.AGayatri Report Given to: Dr. Hong Schafer Repor Time: 00:02
[2017-12-25] MEDS ORDERED: Aspirin 325 MG TABLET PO ONE (22:07)
[2017-12-25 22:24] LABS: Basophils # 0.1 K/mcL (0.0-0.2); Basophils % 0.3 %; Eosinophils # 0.3 K/mcL (0.0-0.6); Eosinophils % 1.8 %; Hematocrit 45.5 % (37.5-50.1); Hemoglobin 15.9 g/dL (12.9-16.9); Immature Granulocytes % 0.6 % (0-4); Lymphocytes # 2.3 K/mcL (0.6-4.6); Lymphocytes % 12.5 %; Mean Corpuscular HGB Conc 34.9 g/dL (31.6-35.5); Mean Corpuscular Hemoglobin 35.3 pg (28.0-33.3); Mean Corpuscular Volume 101.1 fL (83.0-100.0); Mean Platelet Volume 11.6 fL (9.4-12.4); Monocytes # 1.3 K/mcL (0.0-1.3); Monocytes % 7.1 %; Neutrophils # 14.5 K/mcL (1.6-8.9); Platelet Count 184 K/mcL (140-400); Red Cell Distribution Width 14.5 % (11.5-14.5); Segmented Neutrophils % 77.7 %
[2017-12-25 22:36] LABS: BUN/Creatinine Ratio 15 (6-26); Blood Urea Nitrogen 14 mg/dL (6-20); Calcium 9.2 mg/dL (8.6-10.3); Carbon Dioxide 23 mEq/L (23-29); Chloride 103 mEq/L (98-107); Glucose 218 mg/dL (70-105); Osmolality,Calculated 291 (280-300); Potassium 3.5 mEq/L (3.5-5.1); Sodium 137 mEq/L (136-145); eGFR For Non-African Americans > 60 (> 60)
[2017-12-25 22:37] LABS: Troponin I 0.03 ng/mL (< 0.04)
[2017-12-25] MEDS ORDERED: cefTRIAXone 1,000 MG in Water for inj. (sterile) 20 ML 10 ML IVP ONE (23:30)
[2017-12-25] MEDS ORDERED: Azithromycin 500 MG in D5% in Water 250 ML IVPB ONE (23:31)
[2017-12-26] MEDS ORDERED: Acetaminophen 325 MG TABLET PO PRN (00:13)
[2017-12-26] MEDS ORDERED: Naloxone 0.4 MG/ML INJ IVP PRN (00:13)
[2017-12-26] MEDS ORDERED: 0.9 % Sodium Chloride 1,000 ML IVC SCH (00:15)
--- NOTE | 2017-12-26 00:40 | Emergency Department Note ---
Disposition Clinical Impression: Acute exacerbation of chronic bronchitis, Tobacco abuse Chest pain Qualifiers: Chest pain type: unspecified Qualified Code(s): R07.9 - Chest pain, unspecified Disposition: Admitted As Inpatient Condition: Fair General Adult HPI - General Chief complaint: ED Shortness of Breath/Dyspnea Stated complaint: LEO, fever Time Seen by Provider: 12/25/17 21:22 Source: patient, family Mode of arrival: ambulatory Limitations: no limitations Nursing Notes Reviewed: Yes Vital Signs Reviewed: Yes - History of Present Illness Pain Scale: 0 - Related Data Home Medications Medication Instructions Recorded Confirmed Metoprolol [Lopressor] 50 mg PO BID 10/12/17 12/26/17 Multivitamin [Multivitamins] 1 each PO DAILY 10/12/17 12/26/17 NIFEdipine XL (24 HR) [Procardia 30 mg PO DAILY 10/12/17 12/26/17 XL] Simvastatin [Zocor] 40 mg PO DAILY 10/12/17 12/26/17 amLODIPine [Norvasc] 2.5 mg PO DAILY 10/12/17 12/26/17 Aspirin 325 mg PO DAILY 12/26/17 12/26/17 Allergies Allergy/AdvReac Type Severity Reaction Status Date / Time egg Allergy Anaphylaxis Verified 12/22/16 14:04 Sulfa (Sulfonamide Allergy Anaphylaxis Verified 12/22/16 14:04 Antibiotics) Constitutional: Reports: fever Cardiovascular: Reports: chest pain Respiratory: Reports: cough, dyspnea, sputum production Gastrointestinal: Denies: abdominal pain, nausea, vomiting Past Medical History - Past Medical History Medical history: Reports: atrial fibrillation, COPD, coronary artery disease, hyperlipidemia, hypertension, myocardial infarction Surgical history: Reports: coronary bypass (CABG), other Psychiatric history: Reports: no psych history - Social History Smoking Status: Current every day smoker Smokeless Tobacco Status: No Alcohol use: Reports: none Drug use: Reports: none Physical Exam - General Limitations: no limitations General appearance: alert, in no apparent distress Course Vital Signs Temperature 99.6 F 12/25/17 21:29 Pulse Rate 92 12/25/17 21:29 Respiratory Rate 22 12/25/17 21:29 Blood Pressure 129/77 12/25/17 21:29 O2 Sat by Pulse Oximetry 91 12/25/17 21:29 Temperature 99.6 F 12/25/17 21:36 Pulse Rate 94 12/26/17 00:17 Respiratory Rate 21 12/26/17 00:17 Blood Pressure 142/72 12/26/17 00:17 O2 Sat by Pulse Oximetry 90 12/26/17 00:20 Oxygen Delivery Oxygen Delivery Nasal Cannula Medical Decision Making - Medical Records Medical records reviewed: Yes I reviewed the patient's medical records. - Lab Data Lab results reviewed: Yes I reviewed the patient's lab results. Result diagrams: 12/25/17 21:46 12/25/17 21:46 Lab Results 12/25/17 12/25/17 12/25/17 Range/Units 21:46 21:46 21:46 WBC 18.7 H (4.3-11.1) K/mcL RBC 4.50 (4.19-5.50) M/mcL Hgb 15.9 (12.9-16.9) g/dL Hct 45.5 (37.5-50.1) % MCV 101.1 H (83.0-100.0) fL MCH 35.3 H (28.0-33.3) pg MCHC 34.9 (31.6-35.5) g/dL RDW 14.5 (11.5-14.5) % Plt Count 184 (140-400) K/mcL MPV 11.6 (9.4-12.4) fL Immature Gran % 0.6 (0-4) % Seg Neutrophils % 77.7 % Lymphocytes % 12.5 % Monocytes % 7.1 % Eosinophils % 1.8 % Basophils % 0.3 % Neutrophils # 14.5 H (1.6-8.9) K/mcL Lymphocytes # 2.3 (0.6-4.6) K/mcL Monocytes # 1.3 (0.0-1.3) K/mcL Eosinophils # 0.3 (0.0-0.6) K/mcL Basophils # 0.1 (0.0-0.2) K/mcL Sodium 137 (136-145) mEq/L Potassium 3.5 (3.5-5.1) mEq/L Chloride 103 (98-107) mEq/L Carbon Dioxide 23 (23-29) mEq/L BUN 14 (6-20) mg/dL Creatinine 0.95 (0.70-1.30) mg/dL Est GFR ( Amer) > 60 (> 60) Est GFR (Non-Af Amer) > 60 (> 60) BUN/Creatinine Ratio 15 (6-26) Glucose 218 H (70-105) mg/dL Calculated Osmolality 291 (280-300) Lactic Acid (0.5-2.2) mmol/L Calcium 9.2 (8.6-10.3) mg/dL Troponin I 0.03 (< 0.04) ng/mL B-Natriuretic Peptide 46 (Less than 100) pg/mL 12/25/17 Range/Units 22:42 WBC (4.3-11.1) K/mcL RBC (4.19-5.50) M/mcL Hgb (12.9-16.9) g/dL Hct (37.5-50.1) % MCV (83.0-100.0) fL MCH (28.0-33.3) pg MCHC (31.6-35.5) g/dL RDW (11.5-14.5) % Plt Count (140-400) K/mcL MPV (9.4-12.4) fL Immature Gran % (0-4) % Seg Neutrophils % % Lymphocytes % % Monocytes % % Eosinophils % % Basophils % % Neutrophils # (1.6-8.9) K/mcL Lymphocytes # (0.6-4.6) K/mcL Monocytes # (0.0-1.3) K/mcL Eosinophils # (0.0-0.6) K/mcL Basophils # (0.0-0.2) K/mcL Sodium (136-145) mEq/L Potassium (3.5-5.1) mEq/L Chloride (98-107) mEq/L Carbon Dioxide (23-29) mEq/L BUN (6-20) mg/dL Creatinine (0.70-1.30) mg/dL Est GFR ( Amer) (> 60) Est GFR (Non-Af Amer) (> 60) BUN/Creatinine Ratio (6-26) Glucose (70-105) mg/dL Calculated Osmolality (280-300) Lactic Acid 1.4 (0.5-2.2) mmol/L Calcium (8.6-10.3) mg/dL Troponin I (< 0.04) ng/mL B-Natriuretic Peptide (Less than 100) pg/mL - Radiology Data Radiology results reviewed: Yes I reviewed the patient's radiology results. Chest X-Ray 12/25/17 21:57 IMPRESSION: No definite acute pulmonary disease. Chronic changes related to pulmonary fibrosis. Calcific atherosclerotic disease aorta. D/ / Jeff Lerner / Jeff Lerner Interpreting Provider: Jeff Lerner - EKG Data EKG #1 EKG attestation: Yes I reviewed and interpreted this EKG. EKG results narrative: EKG shows a sinus rhythm with ventricular rate of 89. Right bundle branch block. New anterior T-wave inversions in V2 through V4. Attestation Statement - Attestation Attestation: I, Demond Disla MD, personally evaluated this patient and discussed their management with the resident physician. I reviewed the resident's note and agree with the documented findings, medical decision making, and plan of care. 57-year-old male with history of COPD presents to the emergency department complaining of shortness of breath over the past several days associated with fever. Increased cough with sputum production. Some mild chest pain with coughing. On examination patient is a well-developed well-nourished male in no acute distress. He is alert and oriented 3. There is no cyanosis or diaphoresis. Breath sounds are decreased bilaterally with tight diffuse bilateral expiratory wheezes. Heart regular rate and rhythm. Abdomen soft and nontender with normal bowel sounds. EKG shows pulmonary fibrosis with chronic changes but no acute infiltrate. EKG shows some new T-wave inversions anteriorly. Labs reviewed. Troponin normal. BNP normal. The hospitalist, Dr. Pitts, was consulted and accepted admission of the patient.
--- NOTE | 2017-12-26 01:34 | Internal Med History&Physical ---
Date of Encounter: 12/28/17 Time of Encounter: 01:27 Internal Medicine - H&P: HPI Chief complaint: SOB/ Chest Pain History of present illness: Mr. Waldrop is a 57 year old male COPD, coronary artery disease status post CABG in 2010, hypertension, hyperlipidemia who presents to the emergency department complaining of shortness of breath associated with fever and chills. Patient states that he has been feeling like "crap" for the past few days which is gotten progressively worse up until yesterday. He reports generalized body aches, increased cough with sputum production and a sore throat. Denies any sick contacts. Some mild chest pain with coughing. No nausea, vomiting or diarrhea. Patient denies any chest pain or shortness of breath. He does endorse exertional chest pain described as substernal tightness and squeezing sensation particularly when he goes up a flight of stairs however, he states that this is nothing new and has been this way since his heart attack. Upon initial assessment patient was hemodynamically stable with a heart rate in the low 90's; breathing is was reported to be initially labored satting at 92% on room on 2 L. Labs were notable for a elevated white blood cell count of 18. Chest x-ray showed chronic changes related to pulmonary fibrosis but no acute infiltrate. EKG showed some new T-wave inversions anteriorly. Labs reviewed. Troponin normal. BNP normal. Patient received breathing treatments and steroids in the ED with improvement in the patient's respiratory status. Patient was started on antibiotics with ceftriaxone and azithromycin for presumed COPD exacerbation. Past Med Surg Social Fam HX - Past Medical History Medical history: atrial fibrillation, COPD, coronary artery disease, hyperlipidemia, hypertension, myocardial infarction Psychiatric history: no psych history - Past Surgical History Surgical History: coronary bypass (CABG), other Additional surgical history: AAA repair. bilateral lobe pneumonia - Social History Smoking Status: Current every day smoker Smokeless Tobacco Status: No Alcohol use: none Drug use: none - Family History Father Adopted: No Family Member Ethnicity: Non- Living Status: Hx Family Cardiac Disorders: Yes Hx Family Respiratory Disorders: No Hx Family Cancer: Yes (Skin CA) Hx Family GI Disorders: No Hx Family Endocrine Disorder: Yes Hx Family Neuromuscular Disorders: No Hx Family Neurologic Disorders: No Hx Family HEENT Disorders: No Hx Family Autoimmune Disorders: No Mother Living Status: Hx Family Cardiac Disorders: Yes Hx Family Endocrine Disorder: Yes (DM) Brother Hx Family Endocrine Disorder: Yes (DM) Sister Living Status: Hx Family Endocrine Disorder: Yes (DM) Internal Medicine - H&P: Meds Metoprolol [Lopressor] 50 mg PO BID 10/12/17 [History] Multivitamin [Multivitamins] 1 cap PO DAILY 10/12/17 [History] NIFEdipine XL (24 HR) [Procardia XL] 30 mg PO DAILY 10/12/17 [History] Simvastatin [Zocor] 40 mg PO DAILY 10/12/17 [History] Aspirin 325 mg PO DAILY 12/26/17 [History] Albuterol Sulfate [Albuterol Inhaler] 1 puff IH Q4HR PRN 30 Days #1 hfa.aer.ad 12/27/17 [Rx] Azithromycin [Zithromax] 250 mg PO Q24H 4 Days #4 tablet 12/27/17 [Rx] Budesonide/Formoterol 160/4.5 [Symbicort 160/4.5] 1 puff IH BIDR 30 Days #1 hfa.aer.ad 12/27/17 [Rx] Isosorbide MONOnitrate (24 HR) [Imdur] 30 mg PO DAILY 30 Days #30 tab.er.24h 08/10 [Rx] PredniSONE [Deltasone] 40 mg PO DAILY 4 Days #8 tablet 12/27/17 [Rx] 3 Allergy/AdvReac Type Severity Reaction Status Date / Time egg Allergy Anaphylaxis Verified 12/22/16 14:04 Sulfa (Sulfonamide Allergy Anaphylaxis Verified 12/22/16 14:04 Antibiotics) All Systems PM: A 10-system review of systems was performed and is negative for pertinent findings except as documented above in the HPI. - Constitutional Constitutional: no chills, no fever(s), no night sweats - EENT Eyes: no change in vision, no discharge, no pain, no photophobia Ears: no ear discharge, no ear pain, no tinnitus Nose, mouth and throat: no dysphagia, no nasal discharge, no neck pain, no sore throat - Cardiovascular Cardiovascular ROS IM: no chest pain, no diaphoresis, no dyspnea, no lightheadedness, no palpitations, no syncope - Respiratory Respiratory: no cough, no dyspnea, no wheezing, no excessive phlegm production - Gastrointestinal Gastrointestinal: no abdominal pain, no diarrhea, no hematemesis, no hematochezia, no melena, no nausea, no vomiting - Musculoskeletal Musculoskeletal ROS IM: no numbness, no tingling - Integumentary Integumentary IM: no rash, no unusual bruising - Neurological Neurological ROS: no confusion, no convulsions, no focal weakness, no numbness, no tingling, no tremor(s) - Hematologic/Lymphatic Hematologic/Lymphatic: no easy bruising - Constitutional Vitals: Temp Pulse Resp BP Pulse Ox 98.6 F 94 15 112/70 94 12/26/17 01:00 12/26/17 01:00 12/26/17 01:00 12/26/17 01:00 12/26/17 01:00 Exam: General: Alert and oriented 3; lying in bed and in no acute distress; states he is feeling better Skin:Normal color, no rash, no lesions. HEENT:EOM, pupils equal, round and reactive. Cardiovascular:Normal S1 & S2, no rubs, murmurs or gallops. No JVD. Pulse regular. Lungs: Diffuse expiratory wheeze heard throughout all lung tristan. No crackles appreciated Abdomen:Soft, non-tender, no rigidity. Extremities:No deformity, trace edema, no joint swelling or clubbing. Neurological:Normal cognition and motor skills. Pulses:Carotid and radial pulses normal +2. Rest of the physical exam is non contributory Internal Med - H&P Results - Labs CBC & Chem 7: 12/27/17 06:16 12/27/17 06:16 - Assessment and plan (1) Acute exacerbation of chronic obstructive airways disease Status: Acute Assessment and plan: Clinical presentation likely secondary to COPD exacerbation with findings of significant wheezing on chest examination possibly due to either a viral or bacterial etiology given his elevated white blood cell count. We will treat accordingly. DuoNeb's; steroids and antibiotics. Consider pulmonary consultation the morning. Patient reports that symptoms have already begun to improve. (2) Chest pain Status: Acute Assessment and plan: Patient currently denies any chest pain but does endorse exertional chest pain which he says has been a chronic issue. EKG shows T-wave inversions in V2 and V3 which were upright when compared to EKG in September. Initial troponin was negative. Of note, patient underwent left heart catheter in September of this year which showed severe triple-vessel coronary artery disease with patency of all 3 bypass graft vessels. Ejection fraction at that time was 50%. Optical medical management was advised at that time. Patient received loading dose of aspirin in the ED. We will trend troponin; obtain echo in the morning. Continue telemetry. Consider cardiology consult. Qualifiers: Chest pain type: unspecified Qualified Code(s): R07.9 - Chest pain, unspecified (3) Hypertension Status: Chronic Assessment and plan: Blood pressure stable. Continue patient's home dose of beta job and calcium channel blockers Qualifiers: Hypertension type: essential hypertension Qualified Code(s): I10 - Essential (primary) hypertension (4) Leukocytosis Status: Resolved Assessment and plan: Leukocytosis possibly secondary to a viral versus bacterial respiratory infection. We will continue antibiotics for now given patient's previous history of multiple episodes of pneumonia Qualifiers: Leukocytosis type: other Qualified Code(s): D72.828 - Other elevated white blood cell count (5) Tobacco abuse Status: Chronic Assessment and plan: NicoDerm patch - Time Spent With Patient Total time spent is greater than 50% in coordination of care (as documented) at patient's floor/unit and/or counseling patient:
[2017-12-26 02:03] LABS: Basophils % 0.1 %; Eosinophils % 0.1 %; Hematocrit 42.3 % (37.5-50.1); Hemoglobin 14.6 g/dL (12.9-16.9); Immature Granulocytes % 0.5 % (0-4); Lymphocytes # 1.2 K/mcL (0.6-4.6); Lymphocytes % 6.6 %; Mean Corpuscular HGB Conc 34.5 g/dL (31.6-35.5); Mean Corpuscular Hemoglobin 34.7 pg (28.0-33.3); Mean Corpuscular Volume 100.5 fL (83.0-100.0); Monocytes # 0.3 K/mcL (0.0-1.3); Monocytes % 1.7 %; Neutrophils # 16.2 K/mcL (1.6-8.9); Platelet Count 183 K/mcL (140-400); Red Blood Count 4.21 M/mcL (4.19-5.50); Red Cell Distribution Width 14.6 % (11.5-14.5)
[2017-12-26] MEDS: Nicotine 21 MG PATCH.TD24 TD SCH ×2 (02:08→07:52)
[2017-12-26 02:26] LABS: Alanine Aminotransferase 17 Units/L (7-52); Albumin 3.8 g/dL (3.5-5.7); Albumin/Globulin Ratio 1.3 (1.1-2.2); Alkaline Phosphatase 62 Units/L (34-104); Aspartate Amino Transferase 17 Units/L (13-39); BUN/Creatinine Ratio 13 (6-26); Bilirubin,Total 0.5 mg/dL (0.3-1.0); Blood Urea Nitrogen 11 mg/dL (6-20); Calcium 8.8 mg/dL (8.6-10.3); Carbon Dioxide 25 mEq/L (23-29); Chloride 105 mEq/L (98-107); Glucose 199 mg/dL (70-105); Osmolality,Calculated 287 (280-300); Potassium 3.1 mEq/L (3.5-5.1); Sodium 136 mEq/L (136-145); Total Protein 6.8 g/dL (6.4-8.9); eGFR For Non-African Americans > 60 (> 60)
[2017-12-26] MEDS: Ipratropium/Albuterol Neb 3 ML IH SCH ×4 (04:17→22:12)
[2017-12-26] MEDS: MethylPREDNISolone 40 MG/ML VIAL IVP SCH ×4 (05:26→23:09)
[2017-12-26] MEDS: Aspirin 325 MG TABLET PO SCH (07:52)
[2017-12-26] MEDS: NIFEdipine XL (24 HR) 30 MG TAB.ER.24 PO SCH (07:52)
[2017-12-26] MEDS: Multivit/Ca/Min/Fe/FA 1 TAB TABLET PO SCH (07:52)
[2017-12-26] MEDS ORDERED: amLODIPine 5 MG TABLET PO SCH (09:00)
--- NOTE | 2017-12-26 09:17 | Event Note ---
Date of Encounter: 12/26/17 Time of Encounter: 09:13 Mr. Waldrop is a 57 year old male COPD, coronary artery disease status post CABG in 2010, hypertension, hyperlipidemia who presents to the emergency department complaining of shortness of breath associated with fever and chills. He does endorse exertional chest pain described as substernal tightness and squeezing sensation particularly when he goes up a flight of stairs however, he states that this is nothing new and has been this way since his heart attack. Upon initial assessment patient was hemodynamically stable with a heart rate in the low 90's; breathing is was reported to be initially labored satting at 92% on room on 2 L. Labs were notable for a elevated white blood cell count of 18. Chest x-ray showed chronic changes related to pulmonary fibrosis but no acute infiltrate. EKG showed some new T-wave inversions anteriorly. Labs reviewed. Troponin normal. BNP normal. Patient received breathing treatments and steroids in the ED with improvement in the patient's respiratory status. Patient was started on antibiotics with ceftriaxone and azithromycin for presumed COPD exacerbation. Patient has no cardiology follow up, no pulmonary follow up. he is a smoker, will check CT chest to eval pulmonary fibrosis, may need pulmonary consult due to his smoking hx. Patient has worsening exertional CHest pain insetting of new EKG changes, trop is negative, will consult cardology Leukocytosis, will check UA as well
--- NOTE | 2017-12-26 11:12 | Cardiology Consult Note ---
Date of Encounter: 12/26/17 Time of Encounter: 11:07 Assessment and Plan (1) Acute exacerbation of chronic obstructive airways disease Current Visit: No Status: Acute Current primary issues seems to be related to an AE COPD. Fevers/chills and dyspnea reported. Leukocytosis noted. Your IM management. (2) Coronary artery disease Current Visit: No Status: Chronic Hoh CAD, prior CABG. [facility] 09/2017 - severe [place] 3V CAD, 3/3 patent grafts. Poor risk factor modification, continues to smoke. Reports intermittent chest discomfort - ? somewhat related to COPD. Troponin negative. Recommend continue aspirin/statin/BB therapy. ? component of chronic stable angina. Stop amlodipine and start Imdur 30 mg PO daily. Titrate as needed. Ranexa could be considered in future. No recent TTEs, will order one. No compelling indication for invasive cardiac intervention at this time. If no significant findings on TTE, anticipate sign off with outpatient cardiology followup. Patient has not been compliant with office followup - missed previous appointments. Tobacco cessation emphasized. Qualifiers: Coronary Disease-Associated Artery/Lesion type: [place] artery H[place] vs. transplanted heart: [place] heart Associated angina: without angina Qualified Code(s): I25.10 - Atherosclerotic heart disease of [place] coronary artery without angina pectoris Discussion w patient/family: The assessment and plan as outlined above was discussed with the patient and/or family members who expressed understanding and agreement. All questions were answered. Thank you for involving us in the care of your patient. Please call with any questions. History of Present Illness Consult date: 12/26/17 Requesting physician: Salina Keys Consult reason: CAD Chief complaint: Dyspnea, History of present illness: Mr. Waldrop is a 57 year old male with a history of CAD. Presented with complaints of subjective fevers, chills, associated dyspnea. Reports vague chest discomfort on occasion. Troponin measurements negative. ECG - more pronounced ST and T changes compared to previous, RBBB noted. Past Med Surg Social Fam HX - Past Medical History Medical history: atrial fibrillation, COPD, coronary artery disease, hyperlipidemia, hypertension, myocardial infarction Psychiatric history: no psych history - Past Surgical History Surgical History: coronary bypass (CABG), other Additional surgical history: AAA repair. bilateral lobe pneumonia - Social History Smoking Status: Current every day smoker Smokeless Tobacco Status: No Alcohol use: none Drug use: none - Family History Father Adopted: No Family Member Ethnicity: Non- Living Status: Hx Family Cardiac Disorders: Yes Hx Family Respiratory Disorders: No Hx Family Cancer: Yes (Skin CA) Hx Family GI Disorders: No Hx Family Genitourinary Disorders: Yes Hx Family Endocrine Disorder: Yes Hx Family Neuromuscular Disorders: No Hx Family Neurologic Disorders: No Hx Family HEENT Disorders: No Hx Family Autoimmune Disorders: No Mother History Unknown: Yes Adopted: No Living Status: Hx Family Cardiac Disorders: Yes Hx Family Endocrine Disorder: Yes (DM) Brother Hx Family Endocrine Disorder: Yes (DM) Sister Living Status: Hx Family Endocrine Disorder: Yes (DM) Medications and Allergies Metoprolol [Lopressor] 50 mg PO BID 10/12/17 [History] Multivitamin [Multivitamins] 1 cap PO DAILY 10/12/17 [History] NIFEdipine XL (24 HR) [Procardia XL] 30 mg PO DAILY 10/12/17 [History] Simvastatin [Zocor] 40 mg PO DAILY 10/12/17 [History] amLODIPine [Norvasc] 2.5 mg PO DAILY 10/12/17 [History] Aspirin 325 mg PO DAILY 12/26/17 [History] 3 Allergy/AdvReac Type Severity Reaction Status Date / Time egg Allergy Anaphylaxis Verified 12/22/16 14:04 Sulfa (Sulfonamide Allergy Anaphylaxis Verified 12/22/16 14:04 Antibiotics) All Systems Review: The remainder of the systems were reviewed and are negative - Constitutional Constitutional: fever(s) - Cardiovascular Cardiovascular: as per HPI, chest pain at rest, dyspnea at rest Physical Examination General: Conversant, No Apparent Distress HEENT: Atraumatic, Normocephaly, Mucus Membranes Moist Neck: No JVD, Normal carotid pulses Cardiac: Reg Rate and Rhythm, Normal S1 and S2, No Murmur Lungs: Normal Breath Sounds, Other (Scattered rhonchi) Neuro: Alert and responsive, No focal deficits noted Abdomen: Soft, Non-Tender Skin: No rashes noted on visualized skin Musculoskeletal: No Chest Wall Tenderness Extremities: No Clubbing, No Cyanosis, No Edema Results 12/26/17 01:46 12/26/17 01:46 Lab Results 12/26/17 12/26/17 12/26/17 01:46 01:46 01:46 WBC 17.9 H Hgb 14.6 Hct 42.3 Plt Count 183 Sodium 136 Potassium 3.1 L Chloride 105 Carbon Dioxide 25 BUN 11 Creatinine 0.88 Glucose 199 H Calcium 8.8 Total Bilirubin 0.5 AST 17 ALT 17 Alkaline Phosphatase 62 Troponin I 0.03 12/26/17 07:49 WBC Hgb Hct Plt Count Sodium Potassium Chloride Carbon Dioxide BUN Creatinine Glucose Calcium Total Bilirubin AST ALT Alkaline Phosphatase Troponin I < 0.03 - Imaging and Cardiology Echo: report reviewed Cardiac cath: report reviewed - EKG Interpretation EKG results cardiology: personally reviewed Consult Discharge Plan - Plan Referrals: Jalen Fletcher DO [Primary Care Provider] -
[2017-12-26] MEDS: Isosorbide MONOnitrate (24 HR) 30 MG TAB.ER.24H PO SCH (12:50)
[2017-12-26 14:31] LABS: Bilirubin,Urine Negative (Negative); Blood,Urine Negative (Negative); Clarity,Urine Clear (Clear); Color,Urine Yellow (Yellow); Glucose,Urine (UA) >=1000 mg/dL (Normal); Ketones,Urine Trace mg/dL (Negative); Leukocyte Esterase,Urine Negative (Negative); Nitrite,Urine Negative (Negative); PH,Urine 6.5 pH Units (5.0-8.0); Protein,Urine Trace mg/dL (Neg-Trace); Specific Gravity,Urine 1.027 (1.010-1.025); Urobilinogen,Urine Normal (Normal)
[2017-12-26 14:32] LABS: Bacteria,Urine None Seen per hpf (None-Few); Hyaline Casts,Urine None Seen per lpf (None-Few); Squamous Epithelial Cell,Urine Few per lpf (None-Few); WBC,Urine 0-3 per hpf (0-3)
[2017-12-26] MEDS ORDERED: cefTRIAXone 1,000 MG in Water for inj. (sterile) 20 ML 10 ML IVP SCH (18:00)
[2017-12-26] MEDS ORDERED: Azithromycin 500 MG in D5% in Water 250 ML IVPB SCH (21:00)
[2017-12-27] MEDS: Ipratropium/Albuterol Neb 3 ML IH SCH ×3 (04:10→16:13)
[2017-12-27] MEDS: MethylPREDNISolone 40 MG/ML VIAL IVP SCH ×2 (06:00→11:22)
[2017-12-27 06:40] LABS: Lymphocytes % 4.7 %; Platelet Count 194 K/mcL (140-400); Red Cell Distribution Width 14.7 % (11.5-14.5)
[2017-12-27 06:41] LABS: Basophils # 0.1 K/mcL (0.0-0.2); Basophils % 0.2 %; Hematocrit 43.1 % (37.5-50.1); Hemoglobin 14.7 g/dL (12.9-16.9); Immature Granulocytes % 2.5 % (0-4); Lymphocytes # 1.3 K/mcL (0.6-4.6); Mean Corpuscular HGB Conc 34.1 g/dL (31.6-35.5); Mean Corpuscular Hemoglobin 34.7 pg (28.0-33.3); Mean Corpuscular Volume 101.7 fL (83.0-100.0); Monocytes % 3.5 %; Neutrophils # 24.4 K/mcL (1.6-8.9); Red Blood Count 4.24 M/mcL (4.19-5.50); Segmented Neutrophils % 89.1 %
[2017-12-27 07:15] LABS: BUN/Creatinine Ratio 22 (6-26); Blood Urea Nitrogen 17 mg/dL (6-20); Calcium 9.5 mg/dL (8.6-10.3); Carbon Dioxide 22 mEq/L (23-29); Chloride 106 mEq/L (98-107); Chol/HDL Ratio 3.8 (0-4.9); Cholesterol 127 mg/dL (< 200); Glucose 227 mg/dL (70-105); HDL Cholesterol 33 mg/dL (40-59); LDL Cholesterol,Calculated 78 mg/dL (0-99); Osmolality,Calculated 293 (280-300); Potassium 4.1 mEq/L (3.5-5.1); Sodium 137 mEq/L (136-145); Triglycerides 79 mg/dL (< 150); eGFR For Non-African Americans > 60 (> 60)
--- NOTE | 2017-12-27 08:36 | Event Note ---
Date of Encounter: 12/27/17 Time of Encounter: 08:35 - Cardiology Event Note TTE reviewed with LVEF 65%, no segmental wall motion abnormalities noted. Per 's note, cardiology will sign off and will follow in outpatient setting. Follow up set.
[2017-12-27] MEDS: Nicotine 21 MG PATCH.TD24 TD SCH (08:45)
[2017-12-27] MEDS: NIFEdipine XL (24 HR) 30 MG TAB.ER.24 PO SCH (08:45)
[2017-12-27] MEDS: Multivit/Ca/Min/Fe/FA 1 TAB TABLET PO SCH (08:45)
[2017-12-27] MEDS: Isosorbide MONOnitrate (24 HR) 30 MG TAB.ER.24H PO SCH (08:45)
[2017-12-27] MEDS: Aspirin 325 MG TABLET PO SCH (08:45)
[2017-12-27 09:34] LABS: Macrocytosis Present (Not Present); Platelet Estimate Normal (Normal)
[2017-12-27 11:49] VITALS: BP 100/63
--- NOTE | 2017-12-27 12:43 | Internal Med Progress Note ---
Hospitalist Progress Note - Encounter Date of Encounter: 12/27/17 Time of Encounter: 12:42 - Subjective Interval History: Patient seen and examined this morning. No acute overnight events. - Exam Vitals: Temp Pulse Resp BP Pulse Ox 97.9 F 82 17 100/63 90 12/27/17 11:46 12/27/17 11:46 12/27/17 11:46 12/27/17 11:46 12/27/17 11:46 Exam: General: Alert and oriented 3; lying in bed and in no acute distress; states he is feeling better Skin:Normal color, no rash, no lesions. HEENT:EOM, pupils equal, round and reactive. Cardiovascular:Normal S1 & S2, no rubs, murmurs or gallops. No JVD. Pulse regular. Lungs: Clear to auscultation. No crackles appreciated Abdomen:Soft, non-tender, no rigidity. Extremities:No deformity, trace edema, no joint swelling or clubbing. Neurological:Normal cognition and motor skills. Pulses:Carotid and radial pulses normal +2. Rest of the physical exam is non contributory - Assessment and Plan (1) Acute exacerbation of chronic obstructive airways disease Current Visit: No Status: Acute (2) Hypertension Current Visit: No Status: Chronic (3) Tobacco abuse Current Visit: Yes Status: Chronic (4) Chest pain Current Visit: Yes Status: Acute - Summary of Assessment and Plan Summary of Assessment and Plan: Acute exacerbation of chronic obstructive airways disease - On DuoNeb's - Will taper steroids - c/w ceftriaxone and azithromycin. - f/u Pulmonary consult. - sputum culture NGTD. Blood culture NGTD - Legionella and S.Pneumonia Antigen negative - Chest CT showed Bronchiectasis and mild bronchial wall thickening centrally as well as coarsening of interstitial markings predominately in the upper lobes peripherally. Findings can be seen in interstitial lung disease. - ECHO- LVEF 65%. Mild LVH. moderate lt diastolic dysfunction. No PHTN Pulmonary nodule on CT - measures up to 6 mm. - Recommend follow-up in 6-12 months. Chest pain - current chest pain free. - trop x3 was negative. - LHC in September of this year which showed severe triple-vessel coronary artery disease with patency of all 3 bypass graft vessels.. - TTE with LVEF 65%, no segmental wall motion abnormalities. - amlodipine stopped and Imdur started. - No further investigation needed. Hypertension - Continue patient's home dose of beta job and calcium channel blockers Hyperglycemia - Possibly related to steroids use and stress. - No h/o DM. Needs follow up testing for the same. Recommended outpatient followup. Leukocytosis - Leukocytosis possibly secondary COPD exacerbation. Likely steroids also contributory. - We will continue antibiotics for now given patient's previous history of multiple episodes of pneumonia Tobacco abuse - NicoDerm patch - Discussed smoking cessation extensively. Needs follow up with PCP for smoking cessation, pulmonary nodule and hyperglycemia. Likely discharge tommorrow. - Time Spent with Patient Total time spent is greater than 50% in coordination of care (as documented) at patient's floor/unit and/or counseling patient: Internal Medicine: Result - Labs CBC & Chem 7: 12/27/17 06:16 12/27/17 06:16 Labs: Short CBC 12/27/17 Range/Units 06:16 WBC 27.4 H D (4.3-11.1) K/mcL Hgb 14.7 (12.9-16.9) g/dL Hct 43.1 (37.5-50.1) % Plt Count 194 (140-400) K/mcL Neutrophils # 24.4 H (1.6-8.9) K/mcL BMP 12/27/17 06:16 Sodium 137 Potassium 4.1 Chloride 106 Carbon Dioxide 22 L BUN 17 Creatinine 0.79 Glucose 227 H Calcium 9.5 Cardiac Enzymes 12/26/17 Range/Units 13:20 Troponin I < 0.03 (< 0.04) ng/mL Urine 12/26/17 Range/Units 14:26 Urine Color Yellow (Yellow) Urine Clarity Clear (Clear) Urine pH 6.5 (5.0-8.0) pH Units Ur Specific [place] 1.027 H (1.010-1.025) Urine Protein Trace (Neg-Trace) mg/dL Urine Glucose (UA) >=1000 H (Normal) mg/dL - Impressions Impressions Echocardiogram 12/26/17 04:32 Impressions: LVEF 65%. Normal LV chamber size and function. Mild concentric left ventricular hypertrophy. Atypical septal motion consistent with post-operative status. Moderate left ventricular diastolic dysfunction. Mildly dilated right ventricle with normal function. No evidence of pulmonary hypertension. RVSP not well obtained due poor TR jet. Left Ventricular Wall Motion: Rest Echo Findings All wall segments showed normal motion. Findings: Study Quality * Technically adequate exam. ECG Findings * Sinus rhythm with BBB. Left Ventricle * LVEF 65%. * Normal LV chamber size and function. * Mild concentric left ventricular hypertrophy. * Atypical septal motion consistent with post-operative status. * Moderate left ventricular diastolic dysfunction. Right Ventricle * Mildly dilated right ventricle with normal function. Left Atrium * Mildly dilated left atrium. Right Atrium * Mildly dilated right atrium. Aortic Valve * Trileaflet aortic valve. * Mildly sclerotic aortic valve leaflets. * No aortic regurgitation. * No aortic stenosis. Mitral Valve * Normal mitral valve structure and function. * No mitral regurgitation. * No mitral stenosis. Tricuspid Valve * Normal tricuspid valve structure and function. * Trace tricuspid regurgitation. * No evidence of pulmonary hypertension. RVSP not well obtained. Pulmonic Valve * Normal pulmonic valve structure and function. * No pulmonic regurgitation. Aorta * Normally sized aortic root. Pericardium * The pericardium appears normal. IVC * The IVC is not well evaluated. Pulmonary Artery * Normal visualized portions of the main pulmonary artery. Consult Discharge Plan - Plan Referrals: Jalen Fletcher DO [Primary Care Provider] - (2) Hypertension Qualifiers: Hypertension type: essential hypertension Qualified Code(s): I10 - Essential (primary) hypertension (4) Chest pain Qualifiers: Chest pain type: unspecified Qualified Code(s): R07.9 - Chest pain, unspecified
--- NOTE | 2017-12-27 13:32 | Pulmonology Consult Note ---
<Bebeto Waldrop - Last Filed: 12/27/17 13:43> Date of Encounter: 12/27/17 Time of Encounter: 13:32 Assessment and Plan (1) Acute exacerbation of chronic obstructive airways disease Current Visit: No Status: Acute Continue duonebs and albuterol Can switch to PO corticosteroids and decrease dose, recommend 40mg prednisone for 4 more days Infectious causes less likely. Pt denied any fever or chills recently. No changes in sputum production or character. Consider continuing atypical coverage with azithromycin. Upon discharge recommended to pt to continue Symbicort when possible and to ask PCP about an albuterol rescue inhaler. However smoking cessation will be the greatest factor in preventing future exacerbations and discussed this in depth with pt. (2) Tobacco abuse Current Visit: Yes Status: Chronic Smokes 1 ppd for the past 46 years Spent >10 minutes discussing the importance of cessation with pt Offered script for nicotine patch, but pt denied at this time (3) Lung nodule Current Visit: Yes Status: Acute 6mm nodule noted in Right Lower Lobe on CT chest Recommend follow up CT in 6 months History of Present Illness Consult date: 12/27/17 Requesting physician: Michelle Martinez Reason for consult: dyspnea, chest pain Chief complaint: chest pain History of present illness: Mr. Waldrop is a 57M with PMH of CAD with CABG in 2010, HTN, HLD, afib, and COPD who presented to the ER on 12/25 complaining of dyspnea and SOB. CXR revealed chronic changes suggestive of pulmonary fibrosis. CT chest revealed bronchiectasis and chronic fibrotic changes on the upper lobes bilaterally, along with a 6mm nodule in the RLL. Pt states he takes Symbicort at home when he can, stating he receives his inhalers when his PCP has samples since the inhaler costs $300 otherwise. Does not have rescue inhaler at home. Smoke 1 ppd for the past 46 years with some thoughts of cessation. During the encounter with this provider the pt had no acute complaints. Denied any fever, chills, chest pain, shortness of breath, nausea, vomiting, headache, numbness, or tingling. States he was walking up and down the hallway earlier today without difficulty or dyspnea. On room air at this time. States he really wants to go home. Past Med Surg Social Fam HX - Past Medical History Medical history: atrial fibrillation, COPD, coronary artery disease, hyperlipidemia, hypertension, myocardial infarction Psychiatric history: no psych history - Past Surgical History Surgical History: coronary bypass (CABG), other Additional surgical history: AAA repair. bilateral lobe pneumonia - Social History Smoking Status: Current every day smoker Smokeless Tobacco Status: No Alcohol use: none Drug use: none - Family History Father Adopted: No Family Member Ethnicity: Non- Living Status: Hx Family Cardiac Disorders: Yes Hx Family Respiratory Disorders: No Hx Family Cancer: Yes (Skin CA) Hx Family GI Disorders: No Hx Family Genitourinary Disorders: Yes Hx Family Endocrine Disorder: Yes Hx Family Neuromuscular Disorders: No Hx Family Neurologic Disorders: No Hx Family HEENT Disorders: No Hx Family Autoimmune Disorders: No Mother History Unknown: Yes Adopted: No Living Status: Hx Family Cardiac Disorders: Yes Hx Family Endocrine Disorder: Yes (DM) Brother Hx Family Endocrine Disorder: Yes (DM) Sister Living Status: Hx Family Endocrine Disorder: Yes (DM) Medications and Allergies Metoprolol [Lopressor] 50 mg PO BID 10/12/17 [History] Multivitamin [Multivitamins] 1 cap PO DAILY 10/12/17 [History] NIFEdipine XL (24 HR) [Procardia XL] 30 mg PO DAILY 10/12/17 [History] Simvastatin [Zocor] 40 mg PO DAILY 10/12/17 [History] amLODIPine [Norvasc] 2.5 mg PO DAILY 10/12/17 [History] Aspirin 325 mg PO DAILY 12/26/17 [History] 3 Allergy/AdvReac Type Severity Reaction Status Date / Time egg Allergy Anaphylaxis Verified 12/22/16 14:04 Sulfa (Sulfonamide Allergy Anaphylaxis Verified 12/22/16 14:04 Antibiotics) All Systems: The remainder of the systems were reviewed and are negative - Constitutional Constitutional: no chills, no fever(s), no headache(s) - Cardiovascular Cardiovascular: chest pain, dyspnea, dyspnea on exertion, no diaphoresis, no edema, no palpitations - Respiratory Respiratory: cough, dyspnea on exertion, no chest congestion, no excessive phlegm production, no change in phlegm color - Gastrointestinal Gastrointestinal: no abdominal pain, no nausea, no vomiting - Musculoskeletal Musculoskeletal: no weakness, no numbness, no tingling - Neurological Neurological: no confusion, no dizziness, no headache(s), no numbness, no weakness Physical Examination Vital Signs: Vital Signs, Last 4 Hours Temp Pulse Resp BP Pulse Ox 12/27/17 11:46 97.9 F 82 17 100/63 90 12/27/17 10:53 16 92 General appearance: no acute distress Eyes: nonicteric ENT: oropharynx moist Neck: supple, no lymphadenopathy, no JVD Effort: normal Inspection: normal Auscultation: left: diminished breath sounds (left upper ), bilateral: wheezes ( very fine wheezes diffusely) Percussion: bilateral: not dull Tactile fremitus: bilateral: normal Cardiovascular: regular rate and rhythm Gastrointestinal: soft, non-tender, non-distended Integumentary: normal Extremities: no cyanosis, no edema, no clubbing, pink and warm Musculoskeletal: no deformities Gait: normal posture normal mental status, non-focal exam mood appropriate, affect normal Results - Laboratory Findings CBC and BMP: 12/27/17 06:16 12/27/17 06:16 Abnormal lab findings: Abnormal lab results WBC 27.4 K/mcL (4.3-11.1) H D 12/27/17 06:16 MCV 101.7 fL (83.0-100.0) H 12/27/17 06:16 MCH 34.7 pg (28.0-33.3) H 12/27/17 06:16 RDW 14.7 % (11.5-14.5) H 12/27/17 06:16 Neutrophils # 24.4 K/mcL (1.6-8.9) H 12/27/17 06:16 Macrocytosis Present (Not Present) A 12/27/17 06:16 Carbon Dioxide 22 mEq/L (23-29) L 12/27/17 06:16 Glucose 227 mg/dL (70-105) H 12/27/17 06:16 POC Glucose 292 mg/dL (70-99) H 12/27/17 11:45 HDL Cholesterol 33 mg/dL (40-59) L 12/27/17 06:16 Ur Specific [place] 1.027 (1.010-1.025) H 12/26/17 14:26 Urine Glucose (UA) >=1000 mg/dL (Normal) H 12/26/17 14:26 Urine Ketones Trace mg/dL (Negative) H 12/26/17 14:26 Urine Microscopic RBC 5-15 per hpf (0-3) H 12/26/17 14:26 - Microbiology Findings Microbiology Findings: Microbiology, Last 48 Hours 12/26/17 13:00 Sputum Culture - Preliminary Sputum 12/26/17 00:13 Legionella Antigen - Final Urine,Clean Catch Streptococcus pneumoniae Antigen (M - Final - Diagnostic Findings Chest x-ray: report reviewed, image reviewed CT scan - chest: report reviewed, image reviewed - Clinical Findings Intake & Output: Intake & Output 12/26/17 12/27/17 12/27/17 23:59 07:59 15:59 Intake Total 2240 / 2240 Balance 2239 / 2240 Weight 109.769 kg Consult Discharge Plan - Plan Referrals: Jalen Fletcher DO [Primary Care Provider] - <Srinivasan Ambriz - Last Filed: 12/27/17 14:33> Date of Encounter: 12/27/17 All Systems: The remainder of the systems were reviewed and are negative Physical Examination Vital Signs: Vital Signs, Last 4 Hours Temp Pulse Resp BP Pulse Ox 12/27/17 11:46 97.9 F 82 17 100/63 90 12/27/17 10:53 16 92 Results - Laboratory Findings CBC and BMP: 12/27/17 06:16 12/27/17 06:16 Abnormal lab findings: Abnormal lab results WBC 27.4 K/mcL (4.3-11.1) H D 12/27/17 06:16 MCV 101.7 fL (83.0-100.0) H 12/27/17 06:16 MCH 34.7 pg (28.0-33.3) H 12/27/17 06:16 RDW 14.7 % (11.5-14.5) H 12/27/17 06:16 Neutrophils # 24.4 K/mcL (1.6-8.9) H 12/27/17 06:16 Macrocytosis Present (Not Present) A 12/27/17 06:16 Carbon Dioxide 22 mEq/L (23-29) L 12/27/17 06:16 Glucose 227 mg/dL (70-105) H 12/27/17 06:16 POC Glucose 292 mg/dL (70-99) H 12/27/17 11:45 HDL Cholesterol 33 mg/dL (40-59) L 12/27/17 06:16 Ur Specific [place] 1.027 (1.010-1.025) H 12/26/17 14:26 Urine Glucose (UA) >=1000 mg/dL (Normal) H 12/26/17 14:26 Urine Ketones Trace mg/dL (Negative) H 12/26/17 14:26 Urine Microscopic RBC 5-15 per hpf (0-3) H 12/26/17 14:26 - Microbiology Findings Microbiology Findings: Microbiology, Last 48 Hours 12/26/17 13:00 Sputum Culture - Preliminary Sputum 12/26/17 00:13 Legionella Antigen - Final Urine,Clean Catch Streptococcus pneumoniae Antigen (M - Final - Clinical Findings Intake & Output: Intake & Output 12/26/17 12/27/17 12/27/17 23:59 07:59 15:59 Intake Total 2240 / 2240 Balance 2240 / 2240 Weight 109.769 kg - Attending Attestation I examined this patient and my medical decision-making was reviewed with the Resident Physician. I agree with the documented findings, disposition and treatment plan as described except to the extent set forth below. Patient seen and examined. Labs, radiology, chart personally reviewed. 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 At this time patient is stable and I have explained to him he needs to quit smoking and then outpatient follow-up is reasonable. Patient will need pulmonary function test and I have talked to primary team for patient to follow-up as outpatient. Patient may need a sleep study as well as pulmonary function tests. Thank you for consultation
--- NOTE | 2017-12-27 16:02 | Discharge Summary ---
- NOTES TO OUTPATIENT PROVIDER Notes to Outpatient Provider: Needs to be on symbicort and albuterol prn. Getting 4 day of steroids and azithromycin. Pulmonary nodule on CT needs follow up in 6-12 months. amlodipine switched to imdur due to chest pain. Also has hyperglycemia which needs to follow up. Also needs smoking cessation help. Orders not resulted at time of discharge: Pending orders 12/26/17 13:00 Culture,Sputum with Gram Stain [RM] Routine Date of Encounter: 12/27/17 Time of Encounter: 15:59 - Discharge Diagnosis (1) Acute exacerbation of chronic obstructive airways disease Priority: Primary Status: Acute (2) Hypertension Priority: Secondary Status: Chronic Qualifiers: Hypertension type: essential hypertension Qualified Code(s): I10 - Essential (primary) hypertension (3) Tobacco abuse Priority: Secondary Status: Chronic (4) Chest pain Priority: Secondary Status: Acute Qualifiers: Chest pain type: unspecified Qualified Code(s): R07.9 - Chest pain, unspecified Hospital course: Mr. Waldrop is a 57 year old male with COPD, coronary artery disease status post CABG in 2010, hypertension, hyperlipidemia and tobacco abuse came with shortness of breath and was treated for Acute on chronic COPD. Was discharged with 4 more days of steroids and azithromycin. Also has incidental lung nodule 6 mm which need f/u in 6-12 months. Amlodipine switched to Imdur given his CAD and chest pain. Needs to use his symbicort and albuterol. Scripts given, however due to affordability he wants to get sample from PCP. Also may benefit from Diabetes evaluation as he was hyperglycemic if not done already. Needs help with smoking cessation as well. - Time Spent with Patient Total time spent providing and/or coordinating discharge services: Greater than 30 minutes - Discharge Medications Prescriptions: Azithromycin [Zithromax] 250 mg PO Q24H 4 Days #4 tablet Isosorbide MONOnitrate (24 HR) [Imdur] 30 mg PO DAILY 30 Days #30 tab.er.24h PredniSONE [Deltasone] 40 mg PO DAILY 4 Days #8 tablet Home Medications: Metoprolol [Lopressor] 50 mg PO BID 10/12/17 [History] Multivitamin [Multivitamins] 1 cap PO DAILY 10/12/17 [History] NIFEdipine XL (24 HR) [Procardia XL] 30 mg PO DAILY 10/12/17 [History] Simvastatin [Zocor] 40 mg PO DAILY 10/12/17 [History] Aspirin 325 mg PO DAILY 12/26/17 [History] Albuterol Sulfate [Albuterol Inhaler] 1 puff IH Q4HR PRN 30 Days #1 hfa.aer.ad 12/27/17 [Rx] Azithromycin [Zithromax] 250 mg PO Q24H 4 Days #4 tablet 12/27/17 [Rx] Budesonide/Formoterol 160/4.5 [Symbicort 160/4.5] 1 puff IH BIDR 30 Days #1 hfa.aer.ad 12/27/17 [Rx] Isosorbide MONOnitrate (24 HR) [Imdur] 30 mg PO DAILY 30 Days #30 tab.er.24h 08/10 [Rx] PredniSONE [Deltasone] 40 mg PO DAILY 4 Days #8 tablet 12/27/17 [Rx] Allergies/Adverse Reactions: 3 Allergy/AdvReac Type Severity Reaction Status Date / Time egg Allergy Anaphylaxis Verified 12/22/16 14:04 Sulfa (Sulfonamide Allergy Anaphylaxis Verified 12/22/16 14:04 Antibiotics) Date of admission: 12/26/17 00:12 Primary care physician: Jalen Cordova Colopy Consults: 12/26/17 00:13 Consult to Nurse Navigator [CONS] Routine Comment: Consult to Pulmonology [CONS] Routine Consulting Provider: [facility] [place] Reason for Consult: COPD excacerbation Call Completed: No 12/26/17 09:19 Consult to Cardiology [CONS] Routine Comment: Consulting Provider: [facility] [place] Reason for Consult: CADs/p CABG, chest paina nd EKG changes Call Completed: Yes Discharging clinician: Tessa Leija - Constitutional Vitals: Temp Pulse Resp BP Pulse Ox 97.9 F 82 17 100/63 90 12/27/17 11:46 12/27/17 11:46 12/27/17 11:46 12/27/17 11:46 12/27/17 11:46 Exam: General: Alert and oriented 3; lying in bed and in no acute distress; states he is feeling better Skin:Normal color, no rash, no lesions. HEENT:EOM, pupils equal, round and reactive. Cardiovascular:Normal S1 & S2, no rubs, murmurs or gallops. No JVD. Pulse regular. Lungs: Clear to auscultation. No crackles appreciated Abdomen:Soft, non-tender, no rigidity. Extremities:No deformity, trace edema, no joint swelling or clubbing. Neurological:Normal cognition and motor skills. Pulses:Carotid and radial pulses normal +2. Rest of the physical exam is non contributory - Patient Status Disposition: Home, Self-Care Functional capacity at discharge: independent ambulation Overall status at discharge: patient is progressing back to baseline - Discharge Instructions Instructions: Prednisone (By mouth), Azithromycin (By mouth), Isosorbide Mononitrate (By mouth), Chest Pain (DC) Follow Up With: Jalen Fletcher DO [Primary Care Provider] - (patient has to call for an appt. per Office...) Srinivasan Ambriz MD [Partnered Physician] - (web requested 12/27/2017) - Diet and Activity Activity: resume usual activities as tolerated Diet: advance to your usual diet
[2017-12-27] MEDS ORDERED: MethylPREDNISolone 40 MG/ML VIAL IVP SCH (18:00)
--- NOTE | 2017-12-28 22:40 | Electrocardiograph Report ---
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
== END 2017-12-27 16:36 | disposition home or self-care (01) ==
LOC: 2ANU 21:10 → EMEROOARM 21:10 → SUATTDRO 12-26 00:12 → 2ANU 12-26 00:44
PROVIDERS: ADMIT Internal Medicine; ATTEND Internal Medicine

== ENCOUNTER 2019-02-17 13:53 | Observation (INO) ==
[2019-02-17] MEDS ORDERED: Naloxone 0.4 MG/ML INJ IVP PRN (20:27)
[2019-02-17] MEDS ORDERED: 0.9 % Sodium Chloride 1,000 ML IVC SCH (20:30)
[2019-02-17] MEDS ORDERED: Isovue-370 500 ML BOTTLE IVP ONE (22:00)
[2019-02-18 01:25] LABS: Activated Partial Thrombo Time 32.5 Seconds (26.0-36.0); INR 1.5; Prothrombin Time 17.3 Seconds (9.4-12.1)
[2019-02-18 02:07] LABS: Basophils % 0.3 %; Eosinophils # 0.4 K/mcL (0.0-0.6); Eosinophils % 2.4 %; Hematocrit 47.1 % (37.5-50.1); Hemoglobin 16.2 g/dL (12.9-16.9); Immature Granulocytes % 0.3 % (0-4); Lymphocytes # 2.1 K/mcL (0.6-4.6); Lymphocytes % 14.3 %; Mean Corpuscular HGB Conc 34.4 g/dL (31.6-35.5); Mean Corpuscular Volume 104.7 fL (83.0-100.0); Mean Platelet Volume 11.6 fL (9.4-12.4); Monocytes # 0.9 K/mcL (0.0-1.3); Neutrophils # 11.3 K/mcL (1.6-8.9); Platelet Count 178 K/mcL (140-400); Red Cell Distribution Width 14.4 % (11.5-14.5); Segmented Neutrophils % 76.7 %; White Blood Count 14.8 K/mcL (4.3-11.1)
[2019-02-18 03:05] LABS: BUN/Creatinine Ratio 18 (6-26); Blood Urea Nitrogen 18 mg/dL (6-20); Calcium 9.9 mg/dL (8.6-10.3); Carbon Dioxide 27 mEq/L (23-29); Chloride 102 mEq/L (98-107); Glucose 163 mg/dL (70-105); Magnesium 1.9 mg/dL (1.6-2.6); Osmolality,Calculated 289 (280-300); Potassium 3.7 mEq/L (3.5-5.1); Sodium 137 mEq/L (136-145); Troponin I < 0.03 ng/mL (< 0.04); eGFR For African Americans > 60 (> 60); eGFR For Non-African Americans > 60 (> 60)
[2019-02-18 04:32] LABS: Basophils # 0.1 K/mcL (0.0-0.2); Basophils % 0.5 %; Eosinophils # 0.6 K/mcL (0.0-0.6); Eosinophils % 5.8 %; Hematocrit 47.2 % (37.5-50.1); Hemoglobin 16.5 g/dL (12.9-16.9); Immature Granulocytes % 0.2 % (0-4); Mean Corpuscular Hemoglobin 35.8 pg (28.0-33.3); Mean Corpuscular Volume 102.4 fL (83.0-100.0); Mean Platelet Volume 11.5 fL (9.4-12.4); Monocytes # 0.7 K/mcL (0.0-1.3); Monocytes % 7.4 %; Neutrophils # 4.7 K/mcL (1.6-8.9); Platelet Count 182 K/mcL (140-400); Red Blood Count 4.61 M/mcL (4.19-5.50); Red Cell Distribution Width 14.4 % (11.5-14.5); Segmented Neutrophils % 46.1 %; White Blood Count 10.1 K/mcL (4.3-11.1)
[2019-02-18 04:44] LABS: Alanine Aminotransferase 28 Units/L (7-52); Albumin 3.8 g/dL (3.5-5.7); Albumin/Globulin Ratio 1.2 (1.1-2.2); Alkaline Phosphatase 65 Units/L (34-104); Aspartate Amino Transferase 22 Units/L (13-39); BUN/Creatinine Ratio 15 (6-26); Bilirubin,Total 0.5 mg/dL (0.3-1.0); Blood Urea Nitrogen 14 mg/dL (6-20); Calcium 9.2 mg/dL (8.6-10.3); Carbon Dioxide 26 mEq/L (23-29); Chloride 105 mEq/L (98-107); Chol/HDL Ratio 5.2 (0-4.9); Cholesterol 162 mg/dL (< 200); Globulin 3.1 g/dL (2.4-3.5); Glucose 114 mg/dL (70-105); HDL Cholesterol 31 mg/dL (40-59); LDL Cholesterol,Calculated 107 mg/dL (0-99); Magnesium 1.9 mg/dL (1.6-2.6); Osmolality,Calculated 291 (280-300); Potassium 3.8 mEq/L (3.5-5.1); Sodium 140 mEq/L (136-145); Total Protein 6.9 g/dL (6.4-8.9); Triglycerides 121 mg/dL (< 150); eGFR For African Americans > 60 (> 60); eGFR For Non-African Americans > 60 (> 60)
[2019-02-18 08:04] LABS: Estimated Average Glucose 183 mg/dl
[2019-02-18] MEDS ORDERED: Aspirin 325 MG TABLET PO SCH (09:00)
[2019-02-18] MEDS ORDERED: Budesonide/Formoterol 160/4.5 1 PUFF INH IH SCH (10:00)
[2019-02-18 11:23] VITALS: BP 150/96
== END 2019-02-18 18:02 | disposition home or self-care (01) ==
LOC: EMEROOARM 13:53 → 3BNU 13:53
PROVIDERS: ADMIT Student in an Organized Health Care Education/Training Program; ATTEND Student in an Organized Health Care Education/Training Program

== ENCOUNTER 2021-01-22 06:20 | Inpatient (IN) ==
[2021-01-22] MEDS ORDERED: CeFAZolin Syr 2,000MG/20 ML 2,000 MG/20 ML SYRINGE IVPB ONE (06:41)
[2021-01-22] MEDS ORDERED: Ringers Solution, Lactated 1,000 ML IVC SCH (06:45)
[2021-01-22] MEDS ORDERED: *HR* Propofol 200 MG/20 ML VIAL IVP ONE (07:14)
[2021-01-22] MEDS ORDERED: Ondansetron 4 MG/2 ML VIAL ONE (07:14)
[2021-01-22] MEDS ORDERED: *HR* Rocuronium Bromide 50 MG/5 ML VIAL ONE (07:14)
[2021-01-22] MEDS ORDERED: *HR* Succinylcholine 200 MG/10 ML VIAL IVP ONE (07:14)
[2021-01-22] MEDS ORDERED: Ketorolac 30 MG/ML VIAL ONE (07:14)
[2021-01-22] MEDS ORDERED: Lidocaine HCL 4 ML Topical Solution (Laryng-O-Jet Kit Sterile Pak) TP ONE (07:14)
[2021-01-22] MEDS ORDERED: *HR* FentaNYL (PF) 100 MCG/2 ML VIAL ONE ×2 (07:14→07:29)
[2021-01-22] MEDS ORDERED: *HR* Midazolam HCl 2 MG/2 ML VIAL ONE ×2 (07:14→07:29)
[2021-01-22] MEDS ORDERED: Lidocaine -MPF 2% 5 ML VIAL ONE ×2 (07:14→07:49)
[2021-01-22] MEDS ORDERED: *HR* OxyCODONE Immed Rel 5 MG TABLET PO PRN (07:17)
[2021-01-22] MEDS ORDERED: Ondansetron 4 MG/2 ML VIAL IVP PRN ×2 (07:17→11:32)
[2021-01-22] MEDS ORDERED: *HR* HYDROmorphone PF 0.5 MG/0.5 ML SYRINGE IVP PRN (07:17)
[2021-01-22] MEDS ORDERED: Heparin 1,000 UNITS/500 mL 500 ML ONE (07:41)
[2021-01-22] MEDS ORDERED: *HR* HYDROMORPHONE 2 MG/ML VIAL ONE (08:35)
[2021-01-22] MEDS ORDERED: *HR* Labetalol 20 MG/4 ML SYRINGE IVP ONE (08:37)
[2021-01-22] MEDS ORDERED: Sugammadex Sodium 200 MG/2 ML VIAL IV ONE (11:01)
[2021-01-22] MEDS ORDERED: EPHEDrine 50 MG/ML VIAL ONE (11:09)
[2021-01-22] MEDS ORDERED: *HR* Dextrose 50 % in Water (Syg) 50 ML SYRINGE IVP PRN (11:32)
[2021-01-22] MEDS ORDERED: D5% in Water 1,000 ML IVC PRN (11:32)
[2021-01-22] MEDS ORDERED: Dextrose Gel 15 GM/37.5 ML TUBE PO PRN ×2 (11:32)
[2021-01-22] MEDS ORDERED: Naloxone 0.4 MG/ML INJ IVP PRN (11:32)
[2021-01-22] MEDS: Ketorolac 15 MG/ML VIAL IVP SCH ×3 (11:49→23:55)
[2021-01-22] MEDS: *HR* HYDROcodone/Acet 5/325 mg TABLET PO PRN ×2 (11:49→21:25)
[2021-01-22] MEDS: Insulin LISPRO 300 UNITS/3 ML VIAL SUBQ SCH ×3 (12:54→21:26)
[2021-01-22] MEDS: 0.9 % Sodium Chloride 1,000 ML IVC SCH (12:58)
[2021-01-22] MEDS: Ipratropium/Albuterol Neb 3 ML IH SCH ×4 (15:54→23:49)
[2021-01-22] MEDS: Gabapentin 300 MG CAPSULE PO SCH ×2 (16:14→21:25)
[2021-01-22] MEDS: *HR* Heparin 5,000 UNIT/ML VIAL SQ SCH ×2 (16:14→21:26)
[2021-01-22] MEDS: Budesonide/Formoterol 160/4.5 1 PUFF INH IH SCH (19:40)
[2021-01-22] MEDS: Famotidine 20 MG TABLET PO SCH (21:25)
[2021-01-22] MEDS: Sennosides/Docusate Sodium TABLET PO SCH (21:25)
[2021-01-23] MEDS: 0.9 % Sodium Chloride 1,000 ML IVC SCH (01:20)
[2021-01-23] MEDS: Ipratropium/Albuterol Neb 3 ML IH SCH ×6 (03:37→23:28)
[2021-01-23 03:45] LABS: BUN/Creatinine Ratio 19 (6-26); Blood Urea Nitrogen 20 mg/dL (6-20); Calcium 8.8 mg/dL (8.6-10.3); Carbon Dioxide 25 mEq/L (23-29); Chloride 103 mEq/L (98-107); Glucose 227 mg/dL (70-105); Magnesium 1.7 mg/dL (1.6-2.6); Osmolality,Calculated 292 (280-300); Potassium 3.8 mEq/L (3.5-5.1); Sodium 136 mEq/L (136-145); eGFR For African Americans > 60 (> 60); eGFR For Non-African Americans > 60 (> 60)
[2021-01-23 04:10] LABS: Hematocrit 41.5 % (37.5-50.1); Mean Corpuscular HGB Conc 33.7 g/dL (31.6-35.5); Mean Corpuscular Hemoglobin 34.8 pg (28.0-33.3); Mean Corpuscular Volume 103.2 fL (83.0-100.0); Mean Platelet Volume 11.4 fL (9.4-12.4); Platelet Count 186 K/mcL (140-400); Red Blood Count 4.02 M/mcL (4.19-5.50); Red Cell Distribution Width 14.7 % (11.5-14.5); White Blood Count 18.9 K/mcL (4.3-11.1)
[2021-01-23] MEDS: Ketorolac 15 MG/ML VIAL IVP SCH ×3 (05:45→17:58)
[2021-01-23] MEDS: *HR* Heparin 5,000 UNIT/ML VIAL SQ SCH ×3 (05:46→20:33)
[2021-01-23] MEDS: Budesonide/Formoterol 160/4.5 1 PUFF INH IH SCH ×2 (07:30→19:43)
[2021-01-23] MEDS: Insulin LISPRO 300 UNITS/3 ML VIAL SUBQ SCH ×4 (07:57→20:34)
[2021-01-23] MEDS: Sennosides/Docusate Sodium TABLET PO SCH ×2 (09:11→20:33)
[2021-01-23] MEDS: *HR* Pioglitazone 15 MG TABLET PO SCH (09:12)
[2021-01-23] MEDS: Gabapentin 300 MG CAPSULE PO SCH ×3 (09:12→20:33)
[2021-01-23] MEDS: Aspirin 325 MG TABLET PO SCH (09:12)
[2021-01-23] MEDS: Famotidine 20 MG TABLET PO SCH ×2 (09:12→20:33)
[2021-01-23] MEDS: Isosorbide MONOnitrate (24 HR) 30 MG TAB.ER.24H PO SCH (09:12)
[2021-01-23] MEDS: Fluticasone Propionate Nasal 50 MCG/SPRAY BOTTLE NS SCH (09:13)
[2021-01-24] MEDS: Ketorolac 15 MG/ML VIAL IVP SCH ×4 (00:02→17:37)
[2021-01-24] MEDS: *HR* HYDROcodone/Acet 5/325 mg TABLET PO PRN (00:05)
[2021-01-24] MEDS: Ipratropium/Albuterol Neb 3 ML IH SCH ×6 (03:20→23:26)
[2021-01-24] MEDS: *HR* Heparin 5,000 UNIT/ML VIAL SQ SCH ×3 (05:32→20:37)
[2021-01-24 07:40] LABS: Hematocrit 39.9 % (37.5-50.1); Hemoglobin 13.6 g/dL (12.9-16.9); Mean Corpuscular HGB Conc 34.1 g/dL (31.6-35.5); Mean Corpuscular Hemoglobin 35.9 pg (28.0-33.3); Mean Corpuscular Volume 105.3 fL (83.0-100.0); Mean Platelet Volume 11.5 fL (9.4-12.4); Platelet Count 172 K/mcL (140-400); Red Blood Count 3.79 M/mcL (4.19-5.50); Red Cell Distribution Width 15.3 % (11.5-14.5)
[2021-01-24 07:53] LABS: BUN/Creatinine Ratio 18 (6-26); Blood Urea Nitrogen 18 mg/dL (6-20); Calcium 8.9 mg/dL (8.6-10.3); Carbon Dioxide 27 mEq/L (23-29); Chloride 104 mEq/L (98-107); Glucose 141 mg/dL (70-105); Osmolality,Calculated 292 (280-300); Potassium 3.8 mEq/L (3.5-5.1); Sodium 139 mEq/L (136-145); eGFR For African Americans > 60 (> 60); eGFR For Non-African Americans > 60 (> 60)
[2021-01-24] MEDS: Aspirin 325 MG TABLET PO SCH (08:29)
[2021-01-24] MEDS: *HR* Pioglitazone 15 MG TABLET PO SCH (08:29)
[2021-01-24] MEDS: Gabapentin 300 MG CAPSULE PO SCH ×3 (08:30→20:38)
[2021-01-24] MEDS: Isosorbide MONOnitrate (24 HR) 30 MG TAB.ER.24H PO SCH (08:30)
[2021-01-24] MEDS: Insulin LISPRO 300 UNITS/3 ML VIAL SUBQ SCH ×4 (08:30→20:37)
[2021-01-24] MEDS: Famotidine 20 MG TABLET PO SCH ×2 (08:30→20:38)
[2021-01-24] MEDS: Budesonide/Formoterol 160/4.5 1 PUFF INH IH SCH ×2 (08:31→19:57)
[2021-01-24] MEDS: Fluticasone Propionate Nasal 50 MCG/SPRAY BOTTLE NS SCH (08:39)
[2021-01-24] MEDS: Sennosides/Docusate Sodium TABLET PO SCH ×2 (09:06→20:38)
[2021-01-24] MEDS ORDERED: Potassium Chloride Elixir 20 MEQ/15 ML UDC PO ONE (12:55)
[2021-01-25] MEDS: Ketorolac 15 MG/ML VIAL IVP SCH ×5 (00:11→23:42)
[2021-01-25] MEDS: Ipratropium/Albuterol Neb 3 ML IH SCH ×5 (03:46→19:55)
[2021-01-25] MEDS: *HR* Heparin 5,000 UNIT/ML VIAL SQ SCH ×3 (05:37→20:27)
[2021-01-25 06:54] LABS: BUN/Creatinine Ratio 16 (6-26); Blood Urea Nitrogen 15 mg/dL (6-20); Calcium 8.9 mg/dL (8.6-10.3); Carbon Dioxide 30 mEq/L (23-29); Chloride 104 mEq/L (98-107); Glucose 146 mg/dL (70-105); Magnesium 1.7 mg/dL (1.6-2.6); Osmolality,Calculated 289 (280-300); Sodium 138 mEq/L (136-145); eGFR For African Americans > 60 (> 60); eGFR For Non-African Americans > 60 (> 60)
[2021-01-25] MEDS: Budesonide/Formoterol 160/4.5 1 PUFF INH IH SCH ×2 (07:45→19:56)
[2021-01-25] MEDS: Famotidine 20 MG TABLET PO SCH ×2 (08:26→20:27)
[2021-01-25] MEDS: Gabapentin 300 MG CAPSULE PO SCH ×3 (08:26→20:27)
[2021-01-25] MEDS: Aspirin 325 MG TABLET PO SCH (08:26)
[2021-01-25] MEDS: Isosorbide MONOnitrate (24 HR) 30 MG TAB.ER.24H PO SCH (08:26)
[2021-01-25] MEDS: *HR* Pioglitazone 15 MG TABLET PO SCH (08:26)
[2021-01-25] MEDS: Sennosides/Docusate Sodium TABLET PO SCH ×2 (08:27→20:28)
[2021-01-25] MEDS: Fluticasone Propionate Nasal 50 MCG/SPRAY BOTTLE NS SCH (08:27)
[2021-01-25] MEDS: Insulin LISPRO 300 UNITS/3 ML VIAL SUBQ SCH ×4 (08:27→20:27)
[2021-01-25] MEDS: *HR* HYDROcodone/Acet 5/325 mg TABLET PO PRN (09:04)
[2021-01-26] MEDS: Ipratropium/Albuterol Neb 3 ML IH SCH ×4 (01:28→11:20)
[2021-01-26] MEDS: Ketorolac 15 MG/ML VIAL IVP SCH (05:40)
[2021-01-26] MEDS: *HR* Heparin 5,000 UNIT/ML VIAL SQ SCH (05:40)
[2021-01-26] MEDS: Budesonide/Formoterol 160/4.5 1 PUFF INH IH SCH (07:25)
[2021-01-26 08:04] VITALS: BP 121/86; PULSE 73; TEMP 98.1
[2021-01-26] MEDS: *HR* Pioglitazone 15 MG TABLET PO SCH (09:25)
[2021-01-26] MEDS: Isosorbide MONOnitrate (24 HR) 30 MG TAB.ER.24H PO SCH (09:25)
[2021-01-26] MEDS: Famotidine 20 MG TABLET PO SCH (09:25)
[2021-01-26] MEDS: Gabapentin 300 MG CAPSULE PO SCH (09:25)
[2021-01-26] MEDS: Aspirin 325 MG TABLET PO SCH (09:25)
[2021-01-26] MEDS: Fluticasone Propionate Nasal 50 MCG/SPRAY BOTTLE NS SCH (09:26)
[2021-01-26] MEDS: Insulin LISPRO 300 UNITS/3 ML VIAL SUBQ SCH (09:26)
[2021-01-26] MEDS: Sennosides/Docusate Sodium TABLET PO SCH (09:32)
[2021-01-26 11:26] VITALS: O2SAT 98
== END 2021-01-26 12:57 | disposition home or self-care (01) | DRG 120 ==
LOC: SAMDAY 06:20 → 2NNU 11:29
PROVIDERS: ADMIT Thoracic Surgery (Cardiothoracic Vascular Surgery); ATTEND Thoracic Surgery (Cardiothoracic Vascular Surgery)

== ENCOUNTER 2021-02-05 12:25 | Inpatient (IN) ==
[2021-02-05] MEDS ORDERED: Isovue-370 500 ML BOTTLE IVP ONE (13:12)
[2021-02-05] MEDS ORDERED: Morphine Sulfate 2 MG/ML SYRINGE IVP ONE ×2 (13:21→16:18)
[2021-02-05] MEDS ORDERED: Ipratropium/Albuterol Neb 3 ML IH ONE (13:22)
[2021-02-05] MEDS ORDERED: 0.9 % Sodium Chloride 1,000 ML IVC ONE (13:22)
[2021-02-05] MEDS ORDERED: methylPREDNISolone 125 MG/2 ML VIAL IVP ONE (13:22)
[2021-02-05 13:35] LABS: Basophils # 0.1 K/mcL (0.0-0.2); Basophils % 0.3 %; Eosinophils # 0.4 K/mcL (0.0-0.6); Eosinophils % 2.1 %; Hematocrit 43.9 % (37.5-50.1); Immature Granulocytes % 0.3 % (0-4); Lymphocytes # 1.4 K/mcL (0.6-4.6); Lymphocytes % 7.6 %; Mean Corpuscular HGB Conc 34.2 g/dL (31.6-35.5); Mean Corpuscular Hemoglobin 35.3 pg (28.0-33.3); Mean Corpuscular Volume 103.3 fL (83.0-100.0); Mean Platelet Volume 10.7 fL (9.4-12.4); Monocytes % 5.3 %; Neutrophils # 15.1 K/mcL (1.6-8.9); Platelet Count 267 K/mcL (140-400); Red Blood Count 4.25 M/mcL (4.19-5.50); Red Cell Distribution Width 13.8 % (11.5-14.5); Segmented Neutrophils % 84.4 %; White Blood Count 17.9 K/mcL (4.3-11.1)
[2021-02-05 13:49] LABS: INR 1.5; Prothrombin Time 16.8 Seconds (9.4-12.1)
[2021-02-05 13:52] LABS: Activated Partial Thrombo Time 38.7 Seconds (26.0-36.0)
[2021-02-05 13:57] LABS: BUN/Creatinine Ratio 14 (6-26); Blood Urea Nitrogen 14 mg/dL (6-20); Calcium 9.4 mg/dL (8.6-10.3); Carbon Dioxide 30 mEq/L (23-29); Chloride 100 mEq/L (98-107); Glucose 149 mg/dL (70-105); Osmolality,Calculated 285 (280-300); Potassium 3.8 mEq/L (3.5-5.1); Sodium 136 mEq/L (136-145); eGFR For African Americans > 60 (> 60); eGFR For Non-African Americans > 60 (> 60)
[2021-02-05 14:01] LABS: Troponin I 0.03 ng/mL (< 0.04)
[2021-02-05] MEDS ORDERED: Piperacillin/Tazobactam 3.375 GM in 0.9 % Sodium Chloride Mini Bag 100 ML IVPB ONE (14:56)
[2021-02-05] MEDS ORDERED: Vancomycin 1,250 MG/262.5 ML IV.SOLN IVPB ONE (14:57)
[2021-02-05] MEDS ORDERED: Naloxone 0.4 MG/ML INJ IVP PRN (17:08)
[2021-02-05] MEDS ORDERED: Melatonin 3 MG TABLET PO PRN (17:08)
[2021-02-05] MEDS ORDERED: Ondansetron 4 MG/2 ML VIAL IVP PRN (17:08)
[2021-02-05] MEDS ORDERED: Dextrose Gel 15 GM/37.5 ML TUBE PO PRN ×2 (17:08)
[2021-02-05] MEDS ORDERED: *HR* Dextrose 50 % in Water (Syg) 50 ML SYRINGE IVP PRN (17:08)
[2021-02-05] MEDS ORDERED: D5% in Water 1,000 ML IVC PRN (17:08)
[2021-02-05] MEDS ORDERED: Nicotine 2 MG GUM BC PRN (17:27)
[2021-02-05] MEDS: Nicotine 14 MG PATCH.TD24 TD SCH ×2 (17:48→18:10)
[2021-02-05] MEDS: Insulin LISPRO 300 UNITS/3 ML VIAL SUBQ SCH (17:48)
[2021-02-05] MEDS: *HR* HYDROcodone/Acet 5/325 mg TABLET PO PRN (20:39)
[2021-02-05] MEDS: Budesonide/Formoterol 160/4.5 1 PUFF INH IH SCH (23:23)
[2021-02-06] MEDS: Piperacillin/Tazobactam 3.375 GM in 0.9 % Sodium Chloride Mini Bag 100 ML IVPB SCH ×4 (02:35→23:36)
[2021-02-06] MEDS: Vancomycin 1,500 MG/265 ML IV.SOLN IVPB SCH ×2 (02:35→16:37)
[2021-02-06 05:17] LABS: Hematocrit 40.9 % (37.5-50.1); Mean Corpuscular HGB Conc 34.2 g/dL (31.6-35.5); Mean Corpuscular Hemoglobin 35.1 pg (28.0-33.3); Mean Corpuscular Volume 102.5 fL (83.0-100.0); Platelet Count 255 K/mcL (140-400); Red Blood Count 3.99 M/mcL (4.19-5.50); Red Cell Distribution Width 13.4 % (11.5-14.5)
[2021-02-06 05:26] LABS: Lactate Dehydrogenase 110 Units/L (140-271); Total Protein 6.8 g/dL (6.4-8.9)
[2021-02-06 05:27] LABS: BUN/Creatinine Ratio 20 (6-26); Blood Urea Nitrogen 17 mg/dL (6-20); Calcium 9.4 mg/dL (8.6-10.3); Carbon Dioxide 23 mEq/L (23-29); Chloride 103 mEq/L (98-107); Glucose 225 mg/dL (70-105); Magnesium 1.7 mg/dL (1.6-2.6); Osmolality,Calculated 287 (280-300); Phosphorous 2.2 mg/dL (2.7-4.5); Potassium 3.7 mEq/L (3.5-5.1); Sodium 134 mEq/L (136-145); eGFR For African Americans > 60 (> 60); eGFR For Non-African Americans > 60 (> 60)
[2021-02-06] MEDS: Insulin LISPRO 300 UNITS/3 ML VIAL SUBQ SCH ×3 (08:15→17:26)
[2021-02-06] MEDS: Isosorbide MONOnitrate (24 HR) 30 MG TAB.ER.24H PO SCH (08:25)
[2021-02-06] MEDS: Aspirin Enteric Coated 81 MG Tablet PO SCH (08:25)
[2021-02-06] MEDS: Nicotine 14 MG PATCH.TD24 TD SCH (08:26)
[2021-02-06 08:45] LABS: Alanine Aminotransferase 21 Units/L (7-52); Albumin 3.4 g/dL (3.5-5.7); Alkaline Phosphatase 57 Units/L (34-104); Aspartate Amino Transferase 15 Units/L (13-39); Bilirubin,Direct 0.2 mg/dL (0.0-0.2); Bilirubin,Indirect 0.6 mg/dL (0.0-1.0); Bilirubin,Total 0.8 mg/dL (0.3-1.0); Globulin 3.3 g/dL (2.4-3.5); Total Protein 6.7 g/dL (6.4-8.9)
[2021-02-06] MEDS: Budesonide/Formoterol 160/4.5 1 PUFF INH IH SCH ×2 (10:11→19:47)
[2021-02-06] MEDS: *HR* HYDROcodone/Acet 5/325 mg TABLET PO PRN ×3 (11:42→21:08)
[2021-02-06] MEDS ORDERED: *HR* HYDROcodone/Acet 5/325 mg TABLET PO ONE (13:33)
[2021-02-06 14:45] LABS: RBC,Pleural Fluid 37000 RBC/mcL
[2021-02-06 14:56] LABS: Total Protein,Pleural Fluid 4.2 g/dL
[2021-02-06 15:49] LABS: Basophils,Pleural Fluid 0 %; Lymphocytes,Pleural Fluid 0 %; Monocytes,Pleural Fluid 0 %
[2021-02-06 15:50] LABS: Appearance of Pleural Fl Clear (Clear)
[2021-02-06] MEDS: Acetaminophen 325 MG TABLET PO PRN (20:06)
[2021-02-07] MEDS: *HR* HYDROcodone/Acet 5/325 mg TABLET PO PRN ×4 (03:05→23:13)
[2021-02-07] MEDS: Vancomycin 1,500 MG/265 ML IV.SOLN IVPB SCH ×2 (03:06→15:33)
[2021-02-07 07:42] LABS: Hematocrit 39.1 % (37.5-50.1); Hemoglobin 13.1 g/dL (12.9-16.9); Mean Corpuscular HGB Conc 33.5 g/dL (31.6-35.5); Mean Corpuscular Hemoglobin 34.9 pg (28.0-33.3); Mean Corpuscular Volume 104.3 fL (83.0-100.0); Platelet Count 240 K/mcL (140-400); Red Blood Count 3.75 M/mcL (4.19-5.50); Red Cell Distribution Width 13.6 % (11.5-14.5); White Blood Count 17.3 K/mcL (4.3-11.1)
[2021-02-07] MEDS: Budesonide/Formoterol 160/4.5 1 PUFF INH IH SCH ×2 (07:43→20:45)
[2021-02-07 07:58] LABS: Alanine Aminotransferase 22 Units/L (7-52); Albumin 3.1 g/dL (3.5-5.7); Albumin/Globulin Ratio 0.9 (1.1-2.2); Alkaline Phosphatase 52 Units/L (34-104); Aspartate Amino Transferase 16 Units/L (13-39); BUN/Creatinine Ratio 18 (6-26); Bilirubin,Direct 0.1 mg/dL (0.0-0.2); Bilirubin,Indirect 0.4 mg/dL (0.0-1.0); Bilirubin,Total 0.5 mg/dL (0.3-1.0); Blood Urea Nitrogen 18 mg/dL (6-20); Calcium 9.3 mg/dL (8.6-10.3); Carbon Dioxide 28 mEq/L (23-29); Chloride 104 mEq/L (98-107); Globulin 3.5 g/dL (2.4-3.5); Glucose 123 mg/dL (70-105); Magnesium 1.8 mg/dL (1.6-2.6); Osmolality,Calculated 287 (280-300); Phosphorous 3.1 mg/dL (2.7-4.5); Potassium 3.7 mEq/L (3.5-5.1); Sodium 137 mEq/L (136-145); Total Protein 6.6 g/dL (6.4-8.9); eGFR For African Americans > 60 (> 60); eGFR For Non-African Americans > 60 (> 60)
[2021-02-07] MEDS: Insulin LISPRO 300 UNITS/3 ML VIAL SUBQ SCH ×3 (09:16→17:48)
[2021-02-07] MEDS: Piperacillin/Tazobactam 3.375 GM in 0.9 % Sodium Chloride Mini Bag 100 ML IVPB SCH ×3 (09:34→23:14)
[2021-02-07] MEDS: Aspirin Enteric Coated 81 MG Tablet PO SCH (09:35)
[2021-02-07] MEDS: Isosorbide MONOnitrate (24 HR) 30 MG TAB.ER.24H PO SCH (09:35)
[2021-02-07] MEDS: Nicotine 14 MG PATCH.TD24 TD SCH (09:35)
[2021-02-07] MEDS ORDERED: *HR* OxyCODONE Immed Rel 5 MG TABLET PO ONE (13:10)
[2021-02-07] MEDS: Vancomycin 1,750 MG/517.5 ML IV.SOLN IVPB SCH (16:21)
[2021-02-08 01:31] LABS: Hematocrit 39.5 % (37.5-50.1); Hemoglobin 13.9 g/dL (12.9-16.9); Mean Corpuscular HGB Conc 35.2 g/dL (31.6-35.5); Mean Corpuscular Hemoglobin 36.2 pg (28.0-33.3); Mean Corpuscular Volume 102.9 fL (83.0-100.0); Mean Platelet Volume 10.6 fL (9.4-12.4); Platelet Count 259 K/mcL (140-400); Red Blood Count 3.84 M/mcL (4.19-5.50); Red Cell Distribution Width 13.6 % (11.5-14.5); White Blood Count 14.3 K/mcL (4.3-11.1)
[2021-02-08 01:50] LABS: BUN/Creatinine Ratio 20 (6-26); Blood Urea Nitrogen 17 mg/dL (6-20); Calcium 9.4 mg/dL (8.6-10.3); Carbon Dioxide 29 mEq/L (23-29); Chloride 101 mEq/L (98-107); Glucose 129 mg/dL (70-105); Magnesium 1.6 mg/dL (1.6-2.6); Osmolality,Calculated 283 (280-300); Potassium 3.8 mEq/L (3.5-5.1); Sodium 135 mEq/L (136-145); eGFR For African Americans > 60 (> 60); eGFR For Non-African Americans > 60 (> 60)
[2021-02-08] MEDS: Vancomycin 1,750 MG/517.5 ML IV.SOLN IVPB SCH ×2 (03:19→16:37)
[2021-02-08] MEDS: *HR* HYDROcodone/Acet 5/325 mg TABLET PO PRN ×2 (05:39→09:07)
[2021-02-08] MEDS: Isosorbide MONOnitrate (24 HR) 30 MG TAB.ER.24H PO SCH (09:03)
[2021-02-08] MEDS: Aspirin Enteric Coated 81 MG Tablet PO SCH (09:03)
[2021-02-08] MEDS: Piperacillin/Tazobactam 3.375 GM in 0.9 % Sodium Chloride Mini Bag 100 ML IVPB SCH ×3 (09:04→23:21)
[2021-02-08] MEDS: Nicotine 14 MG PATCH.TD24 TD SCH (09:04)
[2021-02-08] MEDS: Insulin LISPRO 300 UNITS/3 ML VIAL SUBQ SCH ×3 (09:04→16:39)
[2021-02-08] MEDS ORDERED: *HR* OxyCODONE Immed Rel 5 MG TABLET PO ONE (09:46)
[2021-02-08] MEDS: Budesonide/Formoterol 160/4.5 1 PUFF INH IH SCH ×2 (10:42→20:19)
[2021-02-08] MEDS: *HR* OxyCODONE/APAP 5/325 TABLET PO PRN ×3 (14:09→23:20)
[2021-02-09 03:17] LABS: Basophils % 0.3 %; Eosinophils # 0.6 K/mcL (0.0-0.6); Eosinophils % 4.9 %; Hematocrit 40.3 % (37.5-50.1); Immature Granulocytes % 0.5 % (0-4); Lymphocytes # 1.9 K/mcL (0.6-4.6); Lymphocytes % 16.8 %; Mean Corpuscular HGB Conc 34.7 g/dL (31.6-35.5); Mean Corpuscular Hemoglobin 35.8 pg (28.0-33.3); Mean Corpuscular Volume 103.1 fL (83.0-100.0); Mean Platelet Volume 10.3 fL (9.4-12.4); Monocytes % 8.9 %; Neutrophils # 7.7 K/mcL (1.6-8.9); Platelet Count 266 K/mcL (140-400); Red Blood Count 3.91 M/mcL (4.19-5.50); Red Cell Distribution Width 13.6 % (11.5-14.5); Segmented Neutrophils % 68.6 %; White Blood Count 11.2 K/mcL (4.3-11.1)
[2021-02-09 03:37] LABS: BUN/Creatinine Ratio 17 (6-26); Blood Urea Nitrogen 16 mg/dL (6-20); Calcium 9.2 mg/dL (8.6-10.3); Carbon Dioxide 31 mEq/L (23-29); Chloride 99 mEq/L (98-107); Glucose 134 mg/dL (70-105); Magnesium 1.7 mg/dL (1.6-2.6); Osmolality,Calculated 285 (280-300); Potassium 3.9 mEq/L (3.5-5.1); Sodium 136 mEq/L (136-145); eGFR For African Americans > 60 (> 60); eGFR For Non-African Americans > 60 (> 60)
[2021-02-09] MEDS: *HR* OxyCODONE/APAP 5/325 TABLET PO PRN ×4 (04:24→20:42)
[2021-02-09] MEDS: Vancomycin 1,750 MG/517.5 ML IV.SOLN IVPB SCH (04:26)
[2021-02-09] MEDS: Budesonide/Formoterol 160/4.5 1 PUFF INH IH SCH ×2 (07:51→20:26)
[2021-02-09] MEDS: Aspirin Enteric Coated 81 MG Tablet PO SCH (09:07)
[2021-02-09] MEDS: Nicotine 14 MG PATCH.TD24 TD SCH (09:08)
[2021-02-09] MEDS: Isosorbide MONOnitrate (24 HR) 30 MG TAB.ER.24H PO SCH (09:09)
[2021-02-09] MEDS: Piperacillin/Tazobactam 3.375 GM in 0.9 % Sodium Chloride Mini Bag 100 ML IVPB SCH (09:09)
[2021-02-09] MEDS: Insulin LISPRO 300 UNITS/3 ML VIAL SUBQ SCH ×3 (12:18→19:07)
[2021-02-09] MEDS: Gabapentin 400 MG CAPSULE PO SCH ×3 (12:37→20:42)
[2021-02-09] MEDS: Vancomycin 2,000 MG/520 ML IV.SOLN IVPB SCH (18:48)
[2021-02-10] MEDS: *HR* OxyCODONE/APAP 5/325 TABLET PO PRN ×4 (01:13→20:26)
[2021-02-10 03:24] LABS: Basophils % 0.3 %; Eosinophils # 0.4 K/mcL (0.0-0.6); Eosinophils % 3.1 %; Hematocrit 41.8 % (37.5-50.1); Immature Granulocytes % 0.3 % (0-4); Lymphocytes # 1.6 K/mcL (0.6-4.6); Lymphocytes % 13.6 %; Mean Corpuscular HGB Conc 33.5 g/dL (31.6-35.5); Mean Corpuscular Hemoglobin 34.9 pg (28.0-33.3); Mean Corpuscular Volume 104.2 fL (83.0-100.0); Monocytes # 1.3 K/mcL (0.0-1.3); Neutrophils # 8.5 K/mcL (1.6-8.9); Platelet Count 255 K/mcL (140-400); Red Blood Count 4.01 M/mcL (4.19-5.50); Red Cell Distribution Width 13.4 % (11.5-14.5); Segmented Neutrophils % 71.7 %; White Blood Count 11.8 K/mcL (4.3-11.1)
[2021-02-10 04:00] LABS: BUN/Creatinine Ratio 16 (6-26); Blood Urea Nitrogen 16 mg/dL (6-20); Calcium 9.3 mg/dL (8.6-10.3); Carbon Dioxide 30 mEq/L (23-29); Chloride 100 mEq/L (98-107); Glucose 173 mg/dL (70-105); Osmolality,Calculated 287 (280-300); Sodium 136 mEq/L (136-145); eGFR For African Americans > 60 (> 60); eGFR For Non-African Americans > 60 (> 60)
[2021-02-10] MEDS: Vancomycin 2,000 MG/520 ML IV.SOLN IVPB SCH ×2 (05:17→17:48)
[2021-02-10] MEDS: Insulin LISPRO 300 UNITS/3 ML VIAL SUBQ SCH ×3 (07:33→17:47)
[2021-02-10] MEDS: Aspirin Enteric Coated 81 MG Tablet PO SCH (08:45)
[2021-02-10] MEDS: Gabapentin 400 MG CAPSULE PO SCH ×3 (08:45→20:25)
[2021-02-10] MEDS: Isosorbide MONOnitrate (24 HR) 30 MG TAB.ER.24H PO SCH (08:46)
[2021-02-10] MEDS: Nicotine 14 MG PATCH.TD24 TD SCH (08:47)
[2021-02-10] MEDS: Budesonide/Formoterol 160/4.5 1 PUFF INH IH SCH ×2 (09:15→21:30)
[2021-02-10] MEDS: Apixaban 5 MG TABLET PO SCH (20:26)
[2021-02-10 22:16] LABS: Fluid Source for Cholesterol PLEURAL FLUID
[2021-02-11] MEDS: *HR* OxyCODONE/APAP 5/325 TABLET PO PRN ×5 (00:43→23:06)
[2021-02-11 08:00] LABS: Basophils % 0.3 %; Eosinophils # 0.8 K/mcL (0.0-0.6); Eosinophils % 7.4 %; Hematocrit 39.2 % (37.5-50.1); Hemoglobin 13.3 g/dL (12.9-16.9); Immature Granulocytes % 0.3 % (0-4); Lymphocytes # 1.7 K/mcL (0.6-4.6); Mean Corpuscular HGB Conc 33.9 g/dL (31.6-35.5); Mean Corpuscular Hemoglobin 35.1 pg (28.0-33.3); Mean Corpuscular Volume 103.4 fL (83.0-100.0); Mean Platelet Volume 10.7 fL (9.4-12.4); Monocytes # 1.2 K/mcL (0.0-1.3); Monocytes % 10.9 %; Platelet Count 225 K/mcL (140-400); Red Blood Count 3.79 M/mcL (4.19-5.50); Red Cell Distribution Width 13.3 % (11.5-14.5); Segmented Neutrophils % 65.1 %; White Blood Count 10.7 K/mcL (4.3-11.1)
[2021-02-11] MEDS: Apixaban 5 MG TABLET PO SCH ×2 (08:03→21:39)
[2021-02-11] MEDS: Aspirin Enteric Coated 81 MG Tablet PO SCH (08:03)
[2021-02-11] MEDS: Gabapentin 400 MG CAPSULE PO SCH ×3 (08:03→21:38)
[2021-02-11] MEDS: Isosorbide MONOnitrate (24 HR) 30 MG TAB.ER.24H PO SCH (08:03)
[2021-02-11] MEDS: Insulin LISPRO 300 UNITS/3 ML VIAL SUBQ SCH ×3 (08:04→16:51)
[2021-02-11] MEDS: Nicotine 14 MG PATCH.TD24 TD SCH (08:09)
[2021-02-11 08:20] LABS: BUN/Creatinine Ratio 16 (6-26); Blood Urea Nitrogen 13 mg/dL (6-20); Calcium 9.2 mg/dL (8.6-10.3); Carbon Dioxide 32 mEq/L (23-29); Chloride 101 mEq/L (98-107); Glucose 140 mg/dL (70-105); Magnesium 1.8 mg/dL (1.6-2.6); Osmolality,Calculated 286 (280-300); Potassium 3.6 mEq/L (3.5-5.1); Sodium 137 mEq/L (136-145); Vancomycin,Trough 8 mcg/mL (5-10); eGFR For African Americans > 60 (> 60); eGFR For Non-African Americans > 60 (> 60)
[2021-02-11] MEDS: Vancomycin 2,000 MG/520 ML IV.SOLN IVPB SCH (09:11)
[2021-02-11] MEDS: Vancomycin 1,250 MG/262.5 ML IV.SOLN IVPB SCH ×2 (09:19→16:52)
[2021-02-11 10:44] LABS: Cholesterol,Body Fluid 99 mg/dL
[2021-02-11] MEDS: Budesonide/Formoterol 160/4.5 1 PUFF INH IH SCH ×2 (11:57→20:23)
[2021-02-11] MEDS: Acetaminophen 325 MG TABLET PO PRN (16:55)
[2021-02-12] MEDS: Vancomycin 1,250 MG/262.5 ML IV.SOLN IVPB SCH ×2 (00:29→11:58)
[2021-02-12] MEDS: *HR* OxyCODONE/APAP 5/325 TABLET PO PRN ×4 (03:16→19:41)
[2021-02-12 05:37] LABS: Basophils % 0.3 %; Eosinophils # 0.8 K/mcL (0.0-0.6); Eosinophils % 7.3 %; Hematocrit 37.2 % (37.5-50.1); Hemoglobin 12.7 g/dL (12.9-16.9); Immature Granulocytes % 0.3 % (0-4); Lymphocytes % 18.9 %; Mean Corpuscular HGB Conc 34.1 g/dL (31.6-35.5); Mean Corpuscular Hemoglobin 35.4 pg (28.0-33.3); Mean Corpuscular Volume 103.6 fL (83.0-100.0); Monocytes # 1.2 K/mcL (0.0-1.3); Monocytes % 11.5 %; Neutrophils # 6.5 K/mcL (1.6-8.9); Platelet Count 226 K/mcL (140-400); Red Blood Count 3.59 M/mcL (4.19-5.50); Red Cell Distribution Width 13.2 % (11.5-14.5); Segmented Neutrophils % 61.7 %; White Blood Count 10.5 K/mcL (4.3-11.1)
[2021-02-12 05:49] LABS: BUN/Creatinine Ratio 16 (6-26); Blood Urea Nitrogen 11 mg/dL (6-20); Calcium 9.2 mg/dL (8.6-10.3); Carbon Dioxide 32 mEq/L (23-29); Chloride 100 mEq/L (98-107); Glucose 120 mg/dL (70-105); Magnesium 1.7 mg/dL (1.6-2.6); Osmolality,Calculated 283 (280-300); Phosphorous 3.4 mg/dL (2.7-4.5); Potassium 3.7 mEq/L (3.5-5.1); Sodium 136 mEq/L (136-145); eGFR For African Americans > 60 (> 60); eGFR For Non-African Americans > 60 (> 60)
[2021-02-12] MEDS: Insulin LISPRO 300 UNITS/3 ML VIAL SUBQ SCH ×3 (07:34→17:40)
[2021-02-12] MEDS: Budesonide/Formoterol 160/4.5 1 PUFF INH IH SCH ×2 (07:50→20:35)
[2021-02-12] MEDS: Aspirin Enteric Coated 81 MG Tablet PO SCH (09:18)
[2021-02-12] MEDS: Gabapentin 400 MG CAPSULE PO SCH ×3 (09:18→19:42)
[2021-02-12] MEDS: Isosorbide MONOnitrate (24 HR) 30 MG TAB.ER.24H PO SCH (09:19)
[2021-02-12] MEDS: Apixaban 5 MG TABLET PO SCH ×2 (09:19→19:42)
[2021-02-12] MEDS: Nicotine 14 MG PATCH.TD24 TD SCH (09:19)
[2021-02-12] MEDS: Vancomycin 1,500 MG/265 ML IV.SOLN IVPB SCH (19:43)
[2021-02-13] MEDS: Budesonide/Formoterol 160/4.5 1 PUFF INH IH SCH ×2 (07:37→21:13)
[2021-02-13] MEDS: Insulin LISPRO 300 UNITS/3 ML VIAL SUBQ SCH ×3 (08:47→17:07)
[2021-02-13] MEDS: Apixaban 5 MG TABLET PO SCH ×2 (08:47→20:44)
[2021-02-13] MEDS: Gabapentin 400 MG CAPSULE PO SCH ×3 (08:47→20:43)
[2021-02-13] MEDS: Aspirin Enteric Coated 81 MG Tablet PO SCH (08:47)
[2021-02-13] MEDS: *HR* OxyCODONE/APAP 5/325 TABLET PO PRN ×3 (08:48→19:21)
[2021-02-13] MEDS: Isosorbide MONOnitrate (24 HR) 30 MG TAB.ER.24H PO SCH (08:48)
[2021-02-13] MEDS: Nicotine 14 MG PATCH.TD24 TD SCH (08:50)
[2021-02-13] MEDS: Vancomycin 1,500 MG/265 ML IV.SOLN IVPB SCH ×3 (09:10→17:06)
[2021-02-14] MEDS: *HR* OxyCODONE/APAP 5/325 TABLET PO PRN ×5 (00:17→20:50)
[2021-02-14] MEDS: Vancomycin 1,500 MG/265 ML IV.SOLN IVPB SCH ×2 (00:19→18:52)
[2021-02-14 06:09] LABS: BUN/Creatinine Ratio 15 (6-26); Blood Urea Nitrogen 12 mg/dL (6-20); Calcium 9.3 mg/dL (8.6-10.3); Carbon Dioxide 30 mEq/L (23-29); Chloride 98 mEq/L (98-107); Glucose 161 mg/dL (70-105); Osmolality,Calculated 283 (280-300); Potassium 3.7 mEq/L (3.5-5.1); Sodium 135 mEq/L (136-145); eGFR For African Americans > 60 (> 60); eGFR For Non-African Americans > 60 (> 60)
[2021-02-14 06:18] LABS: Basophils % 0.4 %; Eosinophils # 0.6 K/mcL (0.0-0.6); Eosinophils % 6.4 %; Hematocrit 37.6 % (37.5-50.1); Hemoglobin 12.4 g/dL (12.9-16.9); Immature Granulocytes % 0.3 % (0-4); Lymphocytes # 1.7 K/mcL (0.6-4.6); Lymphocytes % 19.2 %; Mean Corpuscular Hemoglobin 34.3 pg (28.0-33.3); Mean Corpuscular Volume 103.9 fL (83.0-100.0); Mean Platelet Volume 11.1 fL (9.4-12.4); Monocytes # 1.1 K/mcL (0.0-1.3); Monocytes % 11.7 %; Neutrophils # 5.5 K/mcL (1.6-8.9); Platelet Count 247 K/mcL (140-400); Red Blood Count 3.62 M/mcL (4.19-5.50); Red Cell Distribution Width 13.1 % (11.5-14.5); White Blood Count 8.9 K/mcL (4.3-11.1)
[2021-02-14] MEDS: Budesonide/Formoterol 160/4.5 1 PUFF INH IH SCH ×2 (07:52→20:20)
[2021-02-14] MEDS: Isosorbide MONOnitrate (24 HR) 30 MG TAB.ER.24H PO SCH (09:19)
[2021-02-14] MEDS: Gabapentin 400 MG CAPSULE PO SCH ×3 (09:19→20:48)
[2021-02-14] MEDS: Aspirin Enteric Coated 81 MG Tablet PO SCH (09:19)
[2021-02-14] MEDS: Apixaban 5 MG TABLET PO SCH ×2 (09:20→20:48)
[2021-02-14] MEDS: Nicotine 14 MG PATCH.TD24 TD SCH ×2 (09:21→14:04)
[2021-02-14] MEDS: Insulin LISPRO 300 UNITS/3 ML VIAL SUBQ SCH ×3 (09:26→18:50)
[2021-02-14] MEDS: Vancomycin 1,750 MG/517.5 ML IV.SOLN IVPB SCH (15:40)
[2021-02-15] MEDS: Vancomycin 1,750 MG/517.5 ML IV.SOLN IVPB SCH ×3 (00:15→14:59)
[2021-02-15] MEDS: *HR* OxyCODONE/APAP 5/325 TABLET PO PRN ×5 (00:45→22:43)
[2021-02-15 05:37] LABS: Basophils # 0.1 K/mcL (0.0-0.2); Basophils % 0.5 %; Eosinophils # 0.5 K/mcL (0.0-0.6); Eosinophils % 5.6 %; Hematocrit 37.5 % (37.5-50.1); Hemoglobin 12.3 g/dL (12.9-16.9); Immature Granulocytes % 0.3 % (0-4); Lymphocytes # 1.8 K/mcL (0.6-4.6); Lymphocytes % 19.8 %; Mean Corpuscular HGB Conc 32.8 g/dL (31.6-35.5); Mean Corpuscular Hemoglobin 34.4 pg (28.0-33.3); Mean Corpuscular Volume 104.7 fL (83.0-100.0); Monocytes % 10.9 %; Neutrophils # 5.7 K/mcL (1.6-8.9); Platelet Count 270 K/mcL (140-400); Red Blood Count 3.58 M/mcL (4.19-5.50); Red Cell Distribution Width 13.1 % (11.5-14.5); Segmented Neutrophils % 62.9 %; White Blood Count 9.1 K/mcL (4.3-11.1)
[2021-02-15 06:17] LABS: BUN/Creatinine Ratio 14 (6-26); Blood Urea Nitrogen 11 mg/dL (6-20); Calcium 9.2 mg/dL (8.6-10.3); Carbon Dioxide 33 mEq/L (23-29); Chloride 100 mEq/L (98-107); Glucose 121 mg/dL (70-105); Osmolality,Calculated 285 (280-300); Potassium 3.9 mEq/L (3.5-5.1); Sodium 137 mEq/L (136-145); eGFR For African Americans > 60 (> 60); eGFR For Non-African Americans > 60 (> 60)
[2021-02-15] MEDS: Budesonide/Formoterol 160/4.5 1 PUFF INH IH SCH ×2 (07:47→20:01)
[2021-02-15] MEDS: Insulin LISPRO 300 UNITS/3 ML VIAL SUBQ SCH ×3 (08:53→18:29)
[2021-02-15] MEDS: Gabapentin 400 MG CAPSULE PO SCH ×3 (09:06→20:17)
[2021-02-15] MEDS: Aspirin Enteric Coated 81 MG Tablet PO SCH (09:06)
[2021-02-15] MEDS: Isosorbide MONOnitrate (24 HR) 30 MG TAB.ER.24H PO SCH (09:06)
[2021-02-15] MEDS: Apixaban 5 MG TABLET PO SCH ×2 (09:06→20:18)
[2021-02-15] MEDS: Nicotine 14 MG PATCH.TD24 TD SCH (09:07)
[2021-02-15 22:43] LABS: Vancomycin,Trough 22 mcg/mL (5-10)
[2021-02-15 23:54] LABS: BUN/Creatinine Ratio 15 (6-26); Blood Urea Nitrogen 13 mg/dL (6-20); Calcium 8.5 mg/dL (8.6-10.3); Carbon Dioxide 29 mEq/L (23-29); Chloride 99 mEq/L (98-107); Glucose 177 mg/dL (70-105); Osmolality,Calculated 284 (280-300); Potassium 3.7 mEq/L (3.5-5.1); Sodium 135 mEq/L (136-145); eGFR For African Americans > 60 (> 60); eGFR For Non-African Americans > 60 (> 60)
[2021-02-16] MEDS ORDERED: Vancomycin 1,750 MG/517.5 ML IV.SOLN IVPB SCH (03:00)
[2021-02-16] MEDS: *HR* OxyCODONE/APAP 5/325 TABLET PO PRN ×4 (03:55→19:53)
[2021-02-16 05:54] LABS: Basophils % 0.4 %; Eosinophils # 0.7 K/mcL (0.0-0.6); Hematocrit 36.3 % (37.5-50.1); Hemoglobin 12.4 g/dL (12.9-16.9); Immature Granulocytes % 0.4 % (0-4); Lymphocytes # 1.5 K/mcL (0.6-4.6); Lymphocytes % 15.5 %; Mean Corpuscular HGB Conc 34.2 g/dL (31.6-35.5); Mean Corpuscular Hemoglobin 35.3 pg (28.0-33.3); Mean Corpuscular Volume 103.4 fL (83.0-100.0); Mean Platelet Volume 10.8 fL (9.4-12.4); Monocytes # 0.9 K/mcL (0.0-1.3); Monocytes % 8.9 %; Neutrophils # 6.6 K/mcL (1.6-8.9); Platelet Count 277 K/mcL (140-400); Red Blood Count 3.51 M/mcL (4.19-5.50); Segmented Neutrophils % 67.8 %; White Blood Count 9.8 K/mcL (4.3-11.1)
[2021-02-16 06:15] LABS: BUN/Creatinine Ratio 14 (6-26); Blood Urea Nitrogen 11 mg/dL (6-20); Calcium 9.1 mg/dL (8.6-10.3); Carbon Dioxide 31 mEq/L (23-29); Chloride 100 mEq/L (98-107); Glucose 128 mg/dL (70-105); Osmolality,Calculated 283 (280-300); Potassium 3.7 mEq/L (3.5-5.1); Sodium 136 mEq/L (136-145); eGFR For African Americans > 60 (> 60); eGFR For Non-African Americans > 60 (> 60)
[2021-02-16] MEDS: Budesonide/Formoterol 160/4.5 1 PUFF INH IH SCH ×2 (07:38→20:08)
[2021-02-16] MEDS: Insulin LISPRO 300 UNITS/3 ML VIAL SUBQ SCH ×3 (09:18→17:30)
[2021-02-16] MEDS: Apixaban 5 MG TABLET PO SCH (09:33)
[2021-02-16] MEDS: Gabapentin 400 MG CAPSULE PO SCH ×2 (09:33→14:15)
[2021-02-16] MEDS: Aspirin Enteric Coated 81 MG Tablet PO SCH (09:33)
[2021-02-16] MEDS: Isosorbide MONOnitrate (24 HR) 30 MG TAB.ER.24H PO SCH (09:34)
[2021-02-16] MEDS: Nicotine 14 MG PATCH.TD24 TD SCH (09:34)
[2021-02-16] MEDS ORDERED: *HR* Alteplase (Cathflo) 2 MG VIAL IVP ONE (13:00)
[2021-02-16] MEDS ORDERED: Vancomycin 1,500 MG/265 ML IV.SOLN IVPB SCH (13:00)
[2021-02-16 14:53] VITALS: BP 122/80; PULSE 76; TEMP 97.7; O2SAT 96
[2021-02-16 16:07] LABS: Adenovirus Not Detected (Not Detect); Bordetella Pertussis Not Detected (Not Detect); Chlamydophila pneumoniae Not Detected (Not Detect); Coronavirus 229E Not Detected (Not Detect); Coronavirus HKU1 Not Detected (Not Detect); Coronavirus NL63 Not Detected (Not Detect); Coronavirus OC43 Not Detected (Not Detect); Human Metapneumovirus Not Detected (Not Detect); Human Rhinovirus/Enterovirus Not Detected (Not Detect); Influenza A Subtype 2009 H1 Not Detected (Not Detect); Influenza B Not Detected (Not Detect); Mycoplasma pneumoniae Not Detected (Not Detect); Parainfluenza Virus 1 Not Detected (Not Detect); Parainfluenza Virus 2 Not Detected (Not Detect); Parainfluenza Virus 3 Not Detected (Not Detect); Parainfluenza Virus 4 Not Detected (Not Detect); Respiratory Syncytial Virus Not Detected (Not Detect); SARS-CoV-2 Not Detected (Not Detect)
== END 2021-02-16 20:53 | DRG 720 ==
LOC: 3BNU 12:25 → EMEROOARM 12:25 → SUATTDRO 15:51 → 3BNU 16:35 → SUATTDRO 02-07 17:21
PROVIDERS: ADMIT Internal Medicine; ATTEND Student in an Organized Health Care Education/Training Program

== ENCOUNTER 2021-03-31 15:09 | Observation (INO) ==
[2021-03-31 15:54] LABS: Basophils % 0.5 %; Eosinophils # 0.4 K/mcL (0.0-0.6); Eosinophils % 5.1 %; Hematocrit 45.4 % (37.5-50.1); Immature Granulocytes % 0.1 % (0-4); Lymphocytes # 2.6 K/mcL (0.6-4.6); Lymphocytes % 31.8 %; Mean Corpuscular Hemoglobin 34.2 pg (28.0-33.3); Mean Corpuscular Volume 103.7 fL (83.0-100.0); Mean Platelet Volume 11.2 fL (9.4-12.4); Monocytes # 0.6 K/mcL (0.0-1.3); Monocytes % 6.9 %; Neutrophils # 4.6 K/mcL (1.6-8.9); Platelet Count 215 K/mcL (140-400); Red Blood Count 4.38 M/mcL (4.19-5.50); Red Cell Distribution Width 14.8 % (11.5-14.5); Segmented Neutrophils % 55.6 %; White Blood Count 8.3 K/mcL (4.3-11.1)
[2021-03-31] MEDS ORDERED: Aspirin 81 MG TAB.CHEW PO ONE (16:13)
[2021-03-31] MEDS ORDERED: Isovue-370 500 ML BOTTLE IVP ONE (16:13)
[2021-03-31 16:14] LABS: BUN/Creatinine Ratio 15 (6-26); Blood Urea Nitrogen 14 mg/dL (6-20); Calcium 9.3 mg/dL (8.6-10.3); Carbon Dioxide 31 mEq/L (23-29); Chloride 102 mEq/L (98-107); Glucose 199 mg/dL (70-105); Osmolality,Calculated 294 (280-300); Potassium 3.9 mEq/L (3.5-5.1); Sodium 139 mEq/L (136-145); eGFR For African Americans > 60 (> 60); eGFR For Non-African Americans > 60 (> 60)
[2021-03-31] MEDS ORDERED: *HR* Heparin 5,000 UNIT/ML VIAL IVP PRN (16:43)
[2021-03-31] MEDS ORDERED: *HR* Heparin 5,000 UNIT/ML VIAL IVP ONE (16:43)
[2021-03-31] MEDS ORDERED: Heparin 25,000UNIT/250ML 1/2NS 25,000 UNIT/250 ML IV.SOLN IVC SCH ×2 (16:45→16:48)
[2021-03-31] MEDS ORDERED: Nitroglycerin 0.4 MG TAB.SUBL SL PRN (17:54)
[2021-03-31] MEDS ORDERED: Ipratropium/Albuterol Neb 3 ML IH PRN (17:54)
[2021-03-31] MEDS ORDERED: Ondansetron 4 MG/2 ML VIAL IVP PRN (17:54)
[2021-03-31] MEDS ORDERED: Morphine Sulfate 2 MG/ML SYRINGE IVP PRN (17:57)
[2021-03-31] MEDS ORDERED: Perflutren Lipid Microsphere 1.3 ML in 0.9 % Sodium Chloride 8.7 ML IVP PRN (17:58)
[2021-03-31 18:05] LABS: Amylase 31 Units/L (29-103); Lipase 94 Units/L (11-82)
[2021-03-31] MEDS ORDERED: Naloxone 0.4 MG/ML INJ IVP PRN (18:06)
[2021-03-31 18:07] LABS: Troponin I 0.61 ng/mL (< 0.04)
[2021-03-31] MEDS ORDERED: Dextrose Gel 15 GM/37.5 ML TUBE PO PRN ×2 (18:31)
[2021-03-31] MEDS ORDERED: *HR* Dextrose 50 % in Water (Syg) 50 ML SYRINGE IVP PRN (18:31)
[2021-03-31] MEDS ORDERED: D5% in Water 1,000 ML IVC PRN (18:31)
[2021-03-31] MEDS ORDERED: Nicotine 2 MG GUM BC PRN (18:35)
[2021-03-31 18:38] LABS: BUN/Creatinine Ratio 15 (6-26); Blood Urea Nitrogen 13 mg/dL (6-20); Calcium 8.8 mg/dL (8.6-10.3); Carbon Dioxide 27 mEq/L (23-29); Chloride 102 mEq/L (98-107); Glucose 201 mg/dL (70-105); Osmolality,Calculated 292 (280-300); Potassium 3.5 mEq/L (3.5-5.1); Sodium 138 mEq/L (136-145); eGFR For African Americans > 60 (> 60); eGFR For Non-African Americans > 60 (> 60)
[2021-03-31 19:30] LABS: INR 1.4; Prothrombin Time 15.7 Seconds (9.4-12.1)
[2021-03-31 19:33] LABS: Activated Partial Thrombo Time 76.1 Seconds (26.0-36.0)
[2021-03-31 19:58] LABS: Bilirubin,Urine Negative (Negative); Blood,Urine Negative (Negative); Clarity,Urine Clear (Clear); Color,Urine Light-Yellow (Yellow); Glucose,Urine (UA) Normal (Normal); Ketones,Urine Negative (Negative); Leukocyte Esterase,Urine Negative (Negative); Nitrite,Urine Negative (Negative); Protein,Urine Trace mg/dL (Neg-Trace); Specific Gravity,Urine > 1.030 (1.010-1.025); Urobilinogen,Urine Normal (Normal)
[2021-03-31 20:05] LABS: Adenovirus Not Detected (Not Detect); Bordetella Pertussis Not Detected (Not Detect); Chlamydophila pneumoniae Not Detected (Not Detect); Coronavirus 229E Not Detected (Not Detect); Coronavirus HKU1 Not Detected (Not Detect); Coronavirus NL63 Not Detected (Not Detect); Coronavirus OC43 Not Detected (Not Detect); Human Metapneumovirus Not Detected (Not Detect); Human Rhinovirus/Enterovirus Not Detected (Not Detect); Influenza A Subtype 2009 H1 Not Detected (Not Detect); Influenza B Not Detected (Not Detect); Mycoplasma pneumoniae Not Detected (Not Detect); Parainfluenza Virus 1 Not Detected (Not Detect); Parainfluenza Virus 2 Not Detected (Not Detect); Parainfluenza Virus 3 Not Detected (Not Detect); Parainfluenza Virus 4 Not Detected (Not Detect); Respiratory Syncytial Virus Not Detected (Not Detect); SARS-CoV-2 Not Detected (Not Detect)
[2021-03-31] MEDS: Budesonide/Formoterol 160/4.5 1 PUFF INH IH SCH (21:18)
[2021-04-01 00:48] LABS: Basophils % 0.6 %; Eosinophils # 0.4 K/mcL (0.0-0.6); Eosinophils % 5.5 %; Immature Granulocytes % 0.1 % (0-4); Lymphocytes # 2.7 K/mcL (0.6-4.6); Lymphocytes % 39.1 %; Mean Corpuscular HGB Conc 33.5 g/dL (31.6-35.5); Mean Corpuscular Hemoglobin 34.6 pg (28.0-33.3); Mean Corpuscular Volume 103.4 fL (83.0-100.0); Monocytes # 0.5 K/mcL (0.0-1.3); Monocytes % 7.5 %; Neutrophils # 3.3 K/mcL (1.6-8.9); Platelet Count 167 K/mcL (140-400); Red Blood Count 3.87 M/mcL (4.19-5.50); Red Cell Distribution Width 14.7 % (11.5-14.5); Segmented Neutrophils % 47.2 %; White Blood Count 6.9 K/mcL (4.3-11.1)
[2021-04-01 00:49] LABS: Hemoglobin 13.4 g/dL (12.9-16.9)
[2021-04-01] MEDS: Insulin LISPRO 300 UNITS/3 ML VIAL SUBQ SCH ×3 (01:50→11:47)
[2021-04-01] MEDS: *HR* Heparin 5,000 UNIT/ML VIAL IVP PRN ×3 (01:51→18:23)
[2021-04-01] MEDS: Budesonide/Formoterol 160/4.5 1 PUFF INH IH SCH ×2 (07:24→20:56)
[2021-04-01] MEDS ORDERED: Acetaminophen 325 MG TABLET PO PRN (08:44)
[2021-04-01] MEDS ORDERED: predniSONE 20 MG TABLET PO SCH (09:00)
[2021-04-01] MEDS ORDERED: Aspirin 81 MG TAB.CHEW PO SCH (09:00)
[2021-04-01] MEDS ORDERED: Nicotine 14 MG PATCH.TD24 TD SCH (09:00)
[2021-04-01] MEDS: Aspirin Enteric Coated 81 MG Tablet PO SCH (09:20)
[2021-04-01] MEDS ORDERED: GI Cocktail 40 ML EACH PO ONE (10:16)
[2021-04-01] MEDS ORDERED: *HR* LORazepam 0.5 MG TABLET PO PRN (10:18)
[2021-04-01] MEDS: Isosorbide MONOnitrate (24 HR) 30 MG TAB.ER.24H PO SCH (11:50)
[2021-04-01] MEDS: Heparin 25,000 UNIT/250 ML 25,000 UNIT/250 ML IV.SOLN IVC SCH (13:00)
[2021-04-01] MEDS ORDERED: Famotidine 20 MG/2 ML VIAL IVP ONE (13:39)
[2021-04-01] MEDS: Famotidine 20 MG TABLET PO SCH (20:36)
[2021-04-02] MEDS: *HR* Heparin 5,000 UNIT/ML VIAL IVP PRN ×2 (02:17→10:37)
[2021-04-02 07:12] VITALS: TEMP 97.8
[2021-04-02] MEDS: Famotidine 20 MG TABLET PO SCH (09:05)
[2021-04-02] MEDS: Isosorbide MONOnitrate (24 HR) 30 MG TAB.ER.24H PO SCH (09:05)
[2021-04-02] MEDS: Aspirin Enteric Coated 81 MG Tablet PO SCH (09:05)
[2021-04-02 09:09] LABS: Basophils % 0.5 %; Eosinophils # 0.3 K/mcL (0.0-0.6); Eosinophils % 3.4 %; Hematocrit 42.8 % (37.5-50.1); Hemoglobin 14.3 g/dL (12.9-16.9); Immature Granulocytes % 0.1 % (0-4); Lymphocytes % 25.3 %; Mean Corpuscular HGB Conc 33.4 g/dL (31.6-35.5); Mean Corpuscular Hemoglobin 34.1 pg (28.0-33.3); Mean Corpuscular Volume 102.1 fL (83.0-100.0); Mean Platelet Volume 11.3 fL (9.4-12.4); Monocytes # 0.4 K/mcL (0.0-1.3); Neutrophils # 5.2 K/mcL (1.6-8.9); Platelet Count 179 K/mcL (140-400); Red Blood Count 4.19 M/mcL (4.19-5.50); Red Cell Distribution Width 14.4 % (11.5-14.5); Segmented Neutrophils % 65.7 %
[2021-04-02 09:29] LABS: BUN/Creatinine Ratio 11 (6-26); Blood Urea Nitrogen 10 mg/dL (6-20); Calcium 9.2 mg/dL (8.6-10.3); Carbon Dioxide 26 mEq/L (23-29); Chloride 101 mEq/L (98-107); Glucose 187 mg/dL (70-105); Osmolality,Calculated 284 (280-300); Potassium 3.7 mEq/L (3.5-5.1); Sodium 135 mEq/L (136-145); eGFR For African Americans > 60 (> 60); eGFR For Non-African Americans > 60 (> 60)
[2021-04-02 09:33] LABS: Troponin I 0.34 ng/mL (< 0.04)
[2021-04-02] MEDS: Heparin 25,000 UNIT/250 ML 25,000 UNIT/250 ML IV.SOLN IVC SCH (10:36)
[2021-04-02] MEDS: Budesonide/Formoterol 160/4.5 1 PUFF INH IH SCH (11:03)
[2021-04-02 11:11] VITALS: BP 137/84; PULSE 78; O2SAT 90
== END 2021-04-02 14:18 | disposition home or self-care (01) ==
LOC: EMEROOARM 15:09 → 2ANU 15:09 → SUATTDRO 18:15 → 2ANU 19:51
PROVIDERS: ADMIT Internal Medicine; ATTEND Family Medicine